=== PATIENT | female | born 1960 | race Caucasian/White ===

== ENCOUNTER 2017-12-05 21:04 | Emergency (ER) | payer BC, OTHER ==
[2017-12-05 21:23] VITALS: BP 137/65
[2017-12-05 22:20] LABS: HEMATOCRIT 45.6 % (36.0-47.0); HEMOGLOBIN 15.8 g/dL (12.0-15.5); MEAN CORPUSCULAR HEMOGLOBIN 28.6 pg (27.0-33.4); MEAN CORPUSCULAR HGB CONC 34.6 g/dL (32.0-36.0); MEAN CORPUSCULAR VOLUME 83 fl (80-97); PLATELET COUNT 340 10^3/uL (150-450); RED BLOOD COUNT 5.52 10^6/uL (3.72-5.28); RED CELL DISTRIBUTION WIDTH 13.5 % (11.5-14.0)
[2017-12-05 22:25] LABS: ALANINE AMINOTRANSFERASE 35 U/L (9-52); ALBUMIN 4.7 g/dL (3.5-5.0); ALKALINE PHOSPHATASE 52 U/L (38-126); ANION GAP 13 (5-19); ASPARTATE AMINO TRANSFERASE 32 U/L (14-36); BILIRUBIN,DIRECT 0.2 mg/dL (0.0-0.4); BILIRUBIN,TOTAL 0.5 mg/dL (0.2-1.3); BLOOD UREA NITROGEN 18 mg/dL (7-20); CALCIUM 9.9 mg/dL (8.4-10.2); CARBON DIOXIDE 31 mmol/L (22-30); CHLORIDE 96 mmol/L (98-107); GLUCOSE 107 mg/dL (75-110); LIPASE 283.7 U/L (23-300); POTASSIUM 3.4 mmol/L (3.6-5.0); SODIUM 140.2 mmol/L (137-145); TOTAL PROTEIN 7.9 g/dL (6.3-8.2)
[2017-12-05 22:41] LABS: ABSOLUTE LYMPHOCYTES# (MANUAL) 4.4 10^3/uL (0.5-4.7); ABSOLUTE MONOCYTES # (MANUAL) 1.5 10^3/uL (0.1-1.4); ABSOLUTE NEUTROPHILS# (MANUAL) 15.1 10^3/uL (1.7-8.2); BASOPHILS % (MANUAL) 0 % (0-2); EOSINOPHILS % (MANUAL) 0 % (0-6); LYMPHOCYTES % (MANUAL) 16 % (13-45); MONOCYTES % (MANUAL) 7 % (3-13); SEGMENTED NEUTROPHILS % (MAN) 72 % (42-78); TOTAL CELLS COUNTED 100
[2017-12-05 22:45] LABS: TOXIC GRANULATION 1+; TOXIC VACUOLATION PRESENT
[2017-12-05 22:46] LABS: OVALOCYTES 1+; PLATELET COMMENT ADEQUATE; POIKILOCYTOSIS 1+; TEAR DROP CELLS 1+
[2017-12-05] MEDS ORDERED: FAMOTIDINE INJ/PF 20 MG/2 ML SDV IV ONE (23:46)
[2017-12-05] MEDS ORDERED: NORMAL SALINE 1000 ML 1,000 ML IV ONE (23:46)
--- NOTE | 2017-12-05 23:49 | ER Document Report ---
ED General - General Chief Complaint: Abdominal Pain Stated Complaint: ABDOMINAL PAIN Time Seen by Provider: 12/05/17 23:17 Mode of Arrival: Ambulatory Information source: Patient Notes: 57-year-old female with hypertension presents with complaint of generalized abdominal pain that started 5 hours prior to arrival. Patient states that at 3 PM she ate [employer] and immediately felt abdominal discomfort, nausea. She states that she went home and prepare dinner when she started to experience generalized abdominal pain that she describes as cramping. She denies any vomiting, diarrhea, patient states that she has had prior similar symptoms and was told by her physician that she had diverticulitis although she has never had a colonoscopy or CAT scan performed. TRAVEL OUTSIDE OF THE [place] IN LAST 30 DAYS: No - HPI Onset: Just prior to arrival Onset/Duration: Gradual, Persistent Quality of pain: Cramping Severity: Mild Associated symptoms: Nausea. denies: Chest pain, Vomiting Exacerbated by: Denies Relieved by: Denies Similar symptoms previously: Yes - Related Data Allergies/Adverse Reactions: No Known Allergies Allergy (Unverified 12/05/17 21:09) Past Medical History - General Information source: Patient - Social History Smoking Status: Current Every Day Smoker Cigarette use (# per day): Yes - 10 Smoking Education Provided: Yes - Smoking cessation counseling was provided for 4 minutes at the bedside Frequency of alcohol use: None Drug Abuse: None Lives with: Family Family History: Reviewed & Not Pertinent Patient has suicidal ideation: No Patient has homicidal ideation: No - Past Medical History Cardiac Medical History: Reports: Hx Hypertension Review of Systems - Review of Systems Constitutional: denies: Fever, Weakness, Recent illness EENT: denies: Blurred vision, Difficulty swallowing Cardiovascular: denies: Chest pain, Dizziness Respiratory: denies: Short of breath Gastrointestinal: Abdominal pain, Nausea - Resolved, Constipation. denies: Poor appetite, Black stools Genitourinary: denies: Dysuria, Flank pain Female Genitourinary: No symptoms reported Musculoskeletal: No symptoms reported. denies: Back pain, Muscle stiffness Skin: No symptoms reported. denies: Rash Hematologic/Lymphatic: No symptoms reported. denies: Easy bleeding Neurological/Psychological: denies: Headaches -: Yes All other systems reviewed and negative Physical Exam - Vital signs Vitals: Temp Pulse Resp BP Pulse Ox 98.3 F 72 16 137/65 H 99 12/05/17 21:22 12/05/17 21:22 12/05/17 21:22 12/05/17 21:22 12/05/17 21:22 - Notes Notes: PHYSICAL EXAMINATION: GENERAL: Well-appearing, well-nourished and in no acute distress. HEAD: Atraumatic, normocephalic. EYES: Pupils equal round and reactive to light, extraocular movements intact, conjunctiva are normal. ENT: Nares patent, oropharynx clear without exudates. Moist mucous membranes. NECK: Normal range of motion, supple without lymphadenopathy LUNGS: Breath sounds clear to auscultation bilaterally and equal. No wheezes rales or rhonchi. HEART: Regular rate and rhythm without murmurs ABDOMEN: Soft, nontender, nondistended abdomen. No guarding, no rebound. No masses appreciated. Female : deferred Musculoskeletal: Normal range of motion, no pitting or edema. No cyanosis. NEUROLOGICAL: Cranial nerves grossly intact. Normal speech, normal gait. Normal sensory, motor exams PSYCH: Normal mood, normal affect. SKIN: Warm, Dry, normal turgor, no rashes or lesions noted. Course - Re-evaluation Re-evalutation: Laboratory 12/05/17 12/05/17 12/06/17 21:56 21:56 00:50 WBC 21.0 H RBC 5.52 H Hgb 15.8 H Hct 45.6 MCV 83 MCH 28.6 MCHC 34.6 RDW 13.5 Plt Count 340 Total Counted 100 Seg Neutrophils % Not Reportable Seg Neuts % (Manual) 72 Lymphocytes % Not Reportable Lymphocytes % (Manual) 16 Atypical Lymphs % 5 Monocytes % Not Reportable Monocytes % (Manual) 7 Eosinophils % Not Reportable Eosinophils % (Manual) 0 Basophils % Not Reportable Basophils % (Manual) 0 Absolute Neutrophils Not Reportable Abs Neuts (Manual) 15.1 H Absolute Lymphocytes Not Reportable Abs Lymphs (Manual) 4.4 Absolute Monocytes Not Reportable Abs Monocytes (Manual) 1.5 H Absolute Eosinophils Not Reportable Absolute Eos (Manual) 0.0 Absolute Basophils Not Reportable Abs Basophils (Manual) 0.0 Toxic Granulation 1+ Toxic Vacuolation PRESENT Platelet Comment ADEQUATE Poikilocytosis 1+ Tear Drop Cells 1+ Ovalocytes 1+ Sodium 140.2 Potassium 3.4 L Chloride 96 L Carbon Dioxide 31 H Anion Gap 13 BUN 18 Creatinine 0.84 Est GFR ( Amer) > 60 Est GFR (Non-Af Amer) > 60 Glucose 107 Calcium 9.9 Total Bilirubin 0.5 Direct Bilirubin 0.2 Neonat Total Bilirubin Not Reportable Neonat Direct Bilirubin Not Reportable Neonat Indirect Bili Not Reportable AST 32 ALT 35 Alkaline Phosphatase 52 Total Protein 7.9 Albumin 4.7 Lipase 283.7 Urine Color STRAW Urine Appearance CLEAR Urine pH 7.0 Ur Specific [place] 1.012 Urine Protein NEGATIVE Urine Glucose (UA) NEGATIVE Urine Ketones NEGATIVE Urine Blood NEGATIVE Urine Nitrite NEGATIVE Urine Bilirubin NEGATIVE Urine Urobilinogen NEGATIVE Ur Leukocyte Esterase NEGATIVE Urine WBC (Auto) 5 Urine RBC (Auto) 10 Urine Bacteria (Auto) TRACE Squamous Epi Cells Auto 4 Urine Mucus (Auto) RARE Urine Ascorbic Acid NEGATIVE Abdomen/Pelvis CT 12/06/17 00:00 IMPRESSION: Mild thickening of the small bowel, which is nonspecific and may be due to an enteritis. TECHNICAL DOCUMENTATION: Quality ID # 436: Final reports with documentation of one or more dose reduction techniques (e.g., Automated exposure control, adjustment of the mA and/or kV according to patient size, use of iterative reconstruction technique) 2010 [employer]- All Rights Reserved 12/06/17 02:52 57-year-old female presents with abdominal discomfort, nausea that started just prior to arrival after eating [employer]. Patient's abdominal pain is generalized, described as cramping. She has had associated nausea without vomiting. Upon arrival vitals were reviewed and patient is afebrile, normotensive and not hypoxic. She does not appear toxic or dehydrated. She is in no acute distress. Patient has a benign abdominal exam. CT of the abdomen and pelvis were obtained and showed mild thickening of the small bowel which could represent enteritis. Because of the patient's significant leukocytosis we will start her on Cipro and Flagyl. Patient does have an upcoming appointment with her primary care physician tomorrow. I have provided a copy of the patient's CAT scan report. Patient is tolerating fluids without difficulty. Patient was evaluated and treated as appropriate for the patient's presenting symptoms and complaint, with consideration of any critical or life threatening conditions that may be associated with their obtained history and exam as noted above. All results were discussed with patient. Patient provided the opportunity to ask questions, and express concerns. Patient was educated on treatments based on their presumed diagnosis as noted above. At this time we will discharge the patient with return precautions and follow-up recommendations. Verbal discharge instructions given a the bedside. Medication warnings reviewed. Patient is in agreement with this plan and has verbalized understanding of return precautions. After careful consideration I feel that that patient can be safely discharged from the emergency department, they were advised to followup with a primary care physician in 2-3 days. Dictation on this chart was performed using voice recognition software and may result in unintended grammatical, spelling, syntax or errors. 12/06/17 02:52 - Vital Signs Vital signs: Temp Pulse Resp BP Pulse Ox 98.3 F 72 16 137/65 H 99 12/05/17 21:22 12/05/17 21:22 12/05/17 21:22 12/05/17 21:22 12/05/17 21:22 - Laboratory Result Diagrams: 12/05/17 21:56 12/05/17 21:56 Laboratory results interpreted by me: 12/05/17 12/05/17 21:56 21:56 WBC 21.0 H RBC 5.52 H Hgb 15.8 H Abs Neuts (Manual) 15.1 H Abs Monocytes (Manual) 1.5 H Potassium 3.4 L Chloride 96 L Carbon Dioxide 31 H - Diagnostic Test Radiology reviewed: Image reviewed, Reports reviewed Discharge - Discharge Clinical Impression: Abdominal pain, generalized, Enteritis, Elevated blood pressure reading Constipation Qualifiers: Constipation type: other constipation type Qualified Code(s): K59.09 - Other constipation Leukocytosis Qualifiers: Leukocytosis type: unspecified Qualified Code(s): D72.829 - Elevated white blood cell count, unspecified Condition: Good Disposition: HOME, SELF-CARE Instructions: Abdominal Pain ([facility]), Constipation ([facility]), Leukocytosis ([facility]), Observation for Appendicitis ([facility]), Bulk Laxatives Additional Instructions: Follow up with your [id number] hours for further care or return to the ED IMMEDIATELY if symptoms worsen or you have any concerns. If you cannot afford to follow up with your primary care physician a list of low cost clinics have been provided at the end of your discharge papers as well. Most prescribed medications have multiple side effects. The safest thing to do is when filling your prescription speak to your pharmacist regarding possible interactions with your normal home medications and over the counter medications such as Ibuprofen, Tylenol, Benadryl. If you experience any symptoms that cause you discomfort or concern you should discontinue the medication immediately and return to the emergency room or call your primary care physician. Prescriptions: Ciprofloxacin HCl [Cipro 500 mg Tablet] 500 mg PO BID #20 tablet Dicyclomine HCl [Bentyl 20 mg Tablet] 20 mg PO Q8H PRN #12 tablet PRN Reason: Abdominal Cramping Metronidazole [Flagyl 500 mg Tablet] 500 mg PO BID #14 tablet Ondansetron [Zofran Odt 4 mg Tablet] 1 tab PO Q4H PRN #15 tab.rapdis PRN Reason: For Nausea/Vomiting Polyethylene Glycol 3350 [Miralax Powder 17 gm/Packet] 1 packet PO DAILY #14 pkg Forms: Elevated Blood Pressure Referrals: AYALA CARRINGTON MD [Primary Care Provider] - Follow up tomorrow
[2017-12-06 01:24] LABS: APPEARANCE,URINE CLEAR; BILIRUBIN,URINE NEGATIVE (NEGATIVE); COLOR,URINE STRAW; GLUCOSE, URINE NEGATIVE (NEGATIVE); KETONES,URINE NEGATIVE (NEGATIVE); LEUKOCYTE ESTERASE,URINE NEGATIVE (NEGATIVE); NITRITE,URINE NEGATIVE (NEGATIVE); PROTEIN,URINE NEGATIVE (NEGATIVE); UROBILINOGEN,URINE NEGATIVE mg/dL (<2.0)
[2017-12-06 01:26] LABS: URINE SPECIFIC GRAVITY 1.012
--- NOTE | 2017-12-06 02:29 | RADIOLOGY REPORT (SQ) ---
EXAM DESCRIPTION: CT ABDOMEN PELVIS WITH IV CONTRAST COMPLETED DATE/TME: 12/06/2017 00:00 CLINICAL HISTORY: 57 years, Female, lower abd pain COMPARISON: None. TECHNIQUE: Axial CT images of the abdomen and pelvis were obtained after the administration of IV contrast. Sagittal and coronal reformats were performed. DLP 492 Images stored on PACS. All CT scanners at this facility use dose modulation, iterative reconstruction, and/or weight based dosing when appropriate to reduce radiation dose to as low as reasonably achievable (ALARA). [facility]: Dose Right [facility]: CareDose [facility]: Dose Right [facility]: Teradose 4D [facility]: [employer] LIMITATIONS: None. FINDINGS: Lung bases are clear. The liver, gallbladder, pancreas, spleen, and adrenal glands are unremarkable. Bilateral renal cysts are noted. There is no evidence of hydronephrosis or hydroureter. There is no intraperitoneal free air or fluid. There is no lymphadenopathy. There are mild atherosclerotic calcific effusions of the abdominal aorta without evidence of an aneurysm. There is a small hiatal hernia. There is mild thickening of the fluid-filled small bowel. The appendix is not uniquely identified, however there are no inflammatory changes within the right lower quadrant. The colon contains a moderate amount of stool. The uterus, adnexa, and urinary bladder are unremarkable. There are no lytic or blastic bone lesions IMPRESSION: Mild thickening of the small bowel, which is nonspecific and may be due to an enteritis. TECHNICAL DOCUMENTATION: Quality ID # 436: Final reports with documentation of one or more dose reduction techniques (e.g., Automated exposure control, adjustment of the mA and/or kV according to patient size, use of iterative reconstruction technique) 2010 [employer]- All Rights Reserved
[2017-12-06] MEDS ORDERED: KETOROLAC TROMETHAMINE INJ/PF 30 MG/1 ML SDV IV ONE (02:36)
[2017-12-06] MEDS ORDERED: METRONIDAZOLE 500 MG TABLET PO ONE (02:39)
[2017-12-06] MEDS ORDERED: MORPHINE SULFATE 10 MG/ML INJ IV ONE (02:39)
[2017-12-06] MEDS ORDERED: ONDANSETRON HCL INJ/PF 4 MG/2 ML SDV IV ONE (02:39)
[2017-12-06] MEDS ORDERED: CIPROFLOXACIN 400 MG/D5W RTU 400 MG/200 ML RTUPB IV SCH ×2 (03:00→18:00)
[2017-12-06] MEDS ORDERED: CIPROFLOXACIN 400 MG/D5W RTU 400 MG/200 ML RTUPB IV ONE (03:00)
== END 2017-12-06 04:46 | disposition home or self-care (01) ==
LOC: ER 21:04
DX: K52.9 Noninfective gastroenteritis and colitis, unspecified (principal); K59.00 Constipation, unspecified; D72.829 Elevated white blood cell count, unspecified; R10.84 Generalized abdominal pain; R11.0 Nausea; I10 Essential (primary) hypertension; F17.210 Nicotine dependence, cigarettes, uncomplicated; Z71.6 Tobacco abuse counseling
CPT/HCPCS: 99284; 96361; 96375; 96365; 36415; 87040; 83690; 85025; 80053; 81001; 74177; J1885; J2270; J2405; J7030; J0744; S0028

== ENCOUNTER 2018-04-06 05:52 | Day surgery (SDC) | payer SELFPAY ==
[2018-04-04 11:29] LABS: HEMATOCRIT 43.8 % (36.0-47.0); HEMOGLOBIN 15.3 g/dL (12.0-15.5); MEAN CORPUSCULAR HEMOGLOBIN 28.6 pg (27.0-33.4); MEAN CORPUSCULAR HGB CONC 34.9 g/dL (32.0-36.0); MEAN CORPUSCULAR VOLUME 82 fl (80-97); PLATELET COUNT 383 10^3/uL (150-450); RED BLOOD COUNT 5.36 10^6/uL (3.72-5.28); RED CELL DISTRIBUTION WIDTH 13.2 % (11.5-14.0); WHITE BLOOD COUNT 12.7 10^3/uL (4.0-10.5)
[2018-04-04 11:35] LABS: APPEARANCE,URINE SLIGHTLY-CLOUDY; BILIRUBIN,URINE NEGATIVE (NEGATIVE); COLOR,URINE YELLOW; GLUCOSE, URINE NEGATIVE (NEGATIVE); KETONES,URINE NEGATIVE (NEGATIVE); LEUKOCYTE ESTERASE,URINE NEGATIVE (NEGATIVE); NITRITE,URINE NEGATIVE (NEGATIVE); PROTEIN,URINE NEGATIVE (NEGATIVE); URINE SPECIFIC GRAVITY 1.006; UROBILINOGEN,URINE NEGATIVE mg/dL (<2.0)
[2018-04-04 11:49] LABS: ANION GAP 12 (5-19); BLOOD UREA NITROGEN 15 mg/dL (7-20); CALCIUM 9.5 mg/dL (8.4-10.2); CARBON DIOXIDE 31 mmol/L (22-30); CHLORIDE 98 mmol/L (98-107); GLUCOSE 91 mg/dL (75-110); POTASSIUM 3.6 mmol/L (3.6-5.0); SODIUM 140.6 mmol/L (137-145)
--- NOTE | 2018-04-04 12:07 | RADIOLOGY REPORT (SQ) ---
EXAM DESCRIPTION: CHEST PA/LATERAL COMPLETED DATE/TIME: 04/04/2018 11:22 am REASON FOR STUDY: PRE OP COMPARISON: None. EXAM PARAMETERS: NUMBER OF VIEWS: two views TECHNIQUE: Digital Frontal and Lateral radiographic views of the chest acquired. RADIATION DOSE: NA LIMITATIONS: none FINDINGS: LUNGS AND PLEURA: No opacities, masses or pneumothorax. No pleural effusion. MEDIASTINUM AND HILAR STRUCTURES: No masses or contour abnormalities. HEART AND VASCULAR STRUCTURES: Heart normal size. No evidence for failure. BONES: No acute findings. HARDWARE: None in the chest. OTHER: No other significant finding. IMPRESSION: NO SIGNIFICANT RADIOGRAPHIC FINDING IN THE CHEST. TECHNICAL DOCUMENTATION: JOB ID: [id number] [employer]- All Rights Reserved Reading location - IP/workstation name: [email or web address]
--- NOTE | 2018-04-04 22:50 | EKG REPORT ---
SEVERITY:- NORMAL ECG - SINUS RHYTHM : Confirmed by: Jose Gomez 04-Apr-2018 22:49:45
[~2018-04-06 05:52] MED LIST: CEFAZOLIN 1 GM/D5W RTU 1 GM/50 ML RTUPB IV ONE; LACTATED RINGERS 1000 ML IV PRN; LIDOCAINE 0.5% INJ-PF (5 MG/ML) 50 ML SDV SUBCUT PRN
[2018-04-06] MEDS ORDERED: ALBUTEROL SULFATE 0.083% NEB 2.5 MG/3 ML AMPUL NEB ONE (07:22)
[2018-04-06] MEDS ORDERED: LIDOCAINE 1% INJ-PF (10 MG/ML) 30 ML SDV ONE (08:04)
[2018-04-06] MEDS ORDERED: FENTANYL CITRATE INJ/PF 100 MCG/2 ML AMPUL ONE (08:09)
[2018-04-06] MEDS ORDERED: MIDAZOLAM 2 MG/2 ML INJ ONE (08:09)
[2018-04-06] MEDS ORDERED: PROPOFOL INJ 200 MG/20 ML VIAL IV ONE (08:09)
[2018-04-06] MEDS ORDERED: FENTANYL CITRATE INJ/PF 100 MCG/2 ML AMPUL IV PRN ×3 (08:29)
[2018-04-06] MEDS ORDERED: ONDANSETRON HCL INJ/PF 4 MG/2 ML SDV IV PRN (08:29)
[2018-04-06] MEDS ORDERED: KETOROLAC TROMETHAMINE INJ/PF 30 MG/1 ML SDV ONE (09:27)
[2018-04-06] MEDS ORDERED: OXYCODONE-ACETAMINOPHEN 5-325 MG TABLET PO PRN (09:30)
[2018-04-06] MEDS ORDERED: PROMETHAZINE HCL INJ 25 MG/1 ML VIAL IM PRN (09:30)
[2018-04-06] MEDS ORDERED: MORPHINE INJ 4 MG DOSE (EDIT ROUTE) INJ PRN (09:30)
[2018-04-06 10:56] VITALS: BP 137/80
[2018-04-06] MEDS ORDERED: IBUPROFEN 800 MG TABLET PO SCH (14:00)
--- NOTE | 2018-04-08 08:55 | OPERATIVE REPORT E ---
Operative Report NAME: PEPE ELIZABETH : 1960 AGE: 57Y DATE OF SURGERY: ROOM: PREOPERATIVE DIAGNOSIS: Postmenopausal bleeding. POSTOPERATIVE DIAGNOSIS: Endometrial polyp. OPERATION: Hysteroscopic polypectomy. COMPLICATIONS: None. SURGEON: AYALA CARRINGTON M.D. ANESTHESIA: LMAC, paracervical block. FINDINGS: A large endometrial polyp removed in toto. No adnexal masses were appreciated. Bladder was left undrained. Uterus was normal size, shape, . Anterior stenotic cervix required lacrimal duct dilators to enter the uterus. INDICATIONS FOR PROCEDURE: The patient failed outpatient biopsy. Elected to proceed to hysteroscopy due to a large endometrial mass noted. The usual risks of bleeding, infection, anesthesia, and damage to organs and tissues have been discussed. The patient understood. PROCEDURE: The patient was taken to the operating room and placed in a modified lithotomy position after adequate anesthesia was obtained, prepped and draped for a hysteroscopy. Paracervical block placed. Single-tooth tenaculum placed. A lacrimal duct dilator was used to locate the cervical os and it was dilated to admit an operative hysteroscope. Hysteroscope inserted. A large polyp was encountered. The MyoSure was deployed. This was removed in toto with good hemostasis noted at the completion of procedure. Uterine integrity was confirmed at completion of the procedure. At the completion of procedure all sponge, needle counts were correct. The patient was taken to recovery in stable condition. DICTATING PHYSICIAN: AYALA CARRINGTON M.D. [id number] PHY#: [id number] ID: [id number] JOB#: [id number] ACCT: [id number] cc:AYALA CARRINGTON M.D. >
== END 2018-04-06 10:47 | disposition home or self-care (01) ==
LOC: OROUT 05:52
PROVIDERS: ATTEND Specialist
DX: N84.0 Polyp of corpus uteri (principal); N95.0 Postmenopausal bleeding; I10 Essential (primary) hypertension; Z79.899 Other long term (current) drug therapy
CPT/HCPCS: 93005; 86900; 86901; 36415; 86850; 85027; 80048; 81001; 88305 ×2; 71046; 93010; 94640; 58558; J2250; J0690; J3010; J3490; J1885; J2704; 952

== ENCOUNTER → 2018-07-24 | Outpatient (CLI) | payer OTHER ==
--- NOTE | 2018-07-24 15:39 | RADIOLOGY REPORT (SQ) ---
EXAM DESCRIPTION: CT CHEST WITH COMPLETED DATE/TIME: 07/24/2018 2:43 pm REASON FOR STUDY: CANCER STAGING-ADENOCARCINOMA Z01.89 ENCOUNTER FOR OTHER SPECIFIED SPECIAL EXAMIN ATIONS C80.0 DISSEMINATED MALIGNANT NEOPLASM, UNSPECIFIED COMPARISON: Two-view chest 04/04/2018 CT abdomen pelvis 12/06/2017 TECHNIQUE: CT scan of the chest performed using helical scanning technique with dynamic intravenous contrast injection. Images reviewed with lung, soft tissue and bone windows. Reconstructed coronal and sagittal MPR and MIP images reviewed. All images stored on PACS. All CT scanners at this facility use dose modulation, iterative reconstruction, and/or weight based d osing when appropriate to reduce radiation dose to as low as reasonably achievable (ALARA). [facility]: Dose Right [facility]: CareDose [facility]: Dose Right [facility]: Teradose 4D [facility]: [employer] CONTRAST TYPE AND DOSE: contrast/concentration: Isovue 350.00 mg/ml; Total Contrast Delivered: 80.0 ml; Total Saline Delivered: 55.0 ml RENAL FUNCTION: Creatinine 0.8 RADIATION DOSE: CT Rad equipment meets quality standard of care and radiation dose reduction techniq ues were employed. CTDIvol: 3.0 mGy. DLP: 112 mGy-cm. . LIMITATIONS: None. FINDINGS: LUNGS AND PLEURA: No opacities, nodules, masses. No pneumothorax. No effusions. HILAR AND MEDIASTINAL STRUCTURES: No identified masses or abnormal nodes. Moderate size retrocardiac hiatal hernia. HEART AND VASCULAR STRUCTURES: No aneurysm or dissection. No central pulmonary emboli. No pericardi al effusion. HARDWARE: None in the chest. UPPER ABDOMEN: There is ascites in the upper abdomen. 3 cm cyst posterior right upper pole kidney. Moderate hydronephrosis versus parapelvic cysts left kidney which is incompletely included in the fie ld of view THYROID AND OTHER SOFT TISSUES: No masses. No adenopathy. BONES: No significant finding. OTHER: No other significant finding. IMPRESSION: No CT evidence of metastatic disease to the chest. Ascites in the upper abdomen with possible left hydronephrosis. TECHNICAL DOCUMENTATION: JOB ID: [id number] Quality ID # [id number]: Final reports with documentation of one or more dose reduction techniques (e.g., Au tomated exposure control, adjustment of the mA and/or kV according to patient size, use of iterative reconstruction technique) 2010 [employer]- All Rights Reserved Reading location - IP/workstation name: [email or web address]
== END ==
LOC: RAD 12:33
PROVIDERS: ATTEND Surgery
DX: C80.0 Disseminated malignant neoplasm, unspecified (principal); R18.8 Other ascites
CPT/HCPCS: 71260; 82565

== ENCOUNTER 2018-10-28 05:58 | Emergency (ER) | payer OTHER ==
[2018-10-28] MEDS ORDERED: ASPIRIN 81 MG TABLET, CHEWABLE PO ONE (06:22)
[2018-10-28 07:08] LABS: ABSOLUTE EOSINOPHILS # (AUTO) 0.1 10^3/uL (0.0-0.6); ABSOLUTE LYMPHOCYTES (AUTO) 1.5 10^3/uL (0.5-4.7); ABSOLUTE MONOCYTES (AUTO) 0.6 10^3/uL (0.1-1.4); ABSOLUTE NEUT (AUTO) 1.5 10^3/uL (1.7-8.2); BASOPHILS % (AUTO) 0.3 % (0-2); EOSINOPHILS % (AUTO) 2.8 % (0-6); HEMATOCRIT 36.3 % (36.0-47.0); HEMOGLOBIN 12.5 g/dL (12.0-15.5); LYMPHOCYTES % (AUTO) 41.1 % (13-45); MEAN CORPUSCULAR HEMOGLOBIN 27.8 pg (27.0-33.4); MEAN CORPUSCULAR HGB CONC 34.5 g/dL (32.0-36.0); MEAN CORPUSCULAR VOLUME 81 fl (80-97); MONOCYTES % (AUTO) 15.3 % (3-13); PLATELET COUNT 167 10^3/uL (150-450); RED BLOOD COUNT 4.51 10^6/uL (3.72-5.28); RED CELL DISTRIBUTION WIDTH 22.5 % (11.5-14.0); SEGMENTED NEUTROPHILS % (AUTO) 40.5 % (42-78); TOTAL CELLS COUNTED % (AUTO) 100 %; WHITE BLOOD COUNT 3.7 10^3/uL (4.0-10.5)
[2018-10-28 07:16] LABS: ALBUMIN 4.2 g/dL (3.5-5.0); ALKALINE PHOSPHATASE 68 U/L (38-126); ANION GAP 9 (5-19); ASPARTATE AMINO TRANSFERASE 24 U/L (14-36); BILIRUBIN,DIRECT 0.3 mg/dL (0.0-0.4); BILIRUBIN,TOTAL 0.4 mg/dL (0.2-1.3); BLOOD UREA NITROGEN 15 mg/dL (7-20); CALCIUM 9.9 mg/dL (8.4-10.2); CARBON DIOXIDE 30 mmol/L (22-30); CHLORIDE 100 mmol/L (98-107); CREATINE KINASE 30 U/L (30-135); GLUCOSE 130 mg/dL (75-110); POTASSIUM 3.1 mmol/L (3.6-5.0)
--- NOTE | 2018-10-28 07:18 | RADIOLOGY REPORT (SQ) ---
Chest 2 view on 10/28/2018 at 6:54 AM CLINICAL INDICATION: Chest pain COMPARISON: 04/04/2018 FINDINGS: Left subclavian Port-A-Cath tip is in the SVC. Vascular calcification is noted in the aorta. The lungs are clear. Cardiac, hilar and mediastinal contours are within normal limits. The lunate vascularity is within normal limits. IMPRESSION: No acute disease.
[2018-10-28 07:30] LABS: CREATINE KINASE MB < 0.22 ng/mL (<4.55); TROPONIN I < 0.012 ng/mL
--- NOTE | 2018-10-28 07:40 | ER Document Report ---
Entered by TRACEE CATALAN SCRIBE 10/28/18 0700 Acting as scribe for:UDAY FRANCIS MD ED General - General Chief Complaint: Chest Pain Stated Complaint: CHEST PAIN Time Seen by Provider: 10/28/18 06:33 Primary Care Provider: GARLAND STEINER MD [Primary Care Provider] - Follow up as needed Information source: Patient Notes: 58 year old female with a past medical history significant for what sounds like abdominal carcinomatosis that presents to the emergency department today with complaints of "sternal" chest pain. Patient describes her malignancy as "little white dots all around my abdominal cavity". Patient states that she has noticed this pain when she lays down at night for the last month or more. Patient states it lasts for about 60 seconds and then goes away. Patient states it never wakes her up from sleep. Patient states she seems to be getting more and more of these episodes recently. Patient's last chemotherapy treatment was 2 weeks ago. TRAVEL OUTSIDE OF THE [place] IN LAST 30 DAYS: No - Related Data Allergies/Adverse Reactions: No Known Allergies Allergy (Unverified 04/04/18 10:14) Past Medical History - General Information source: Patient - Social History Smoking Status: Current Every Day Smoker Cigarette use (# per day): Yes - 1 ppd Frequency of alcohol use: None Drug Abuse: None Lives with: Spouse/Significant other Family History: Reviewed & Not Pertinent Patient has suicidal ideation: No Patient has homicidal ideation: No - Past Medical History Cardiac Medical History: Reports: Hx Hypertension Malignancy Medical History: Reports: Other - describes what sounds like Carcinomatosis Past Surgical History: Reports: Hx Tubal Ligation, Hx Vascular Surgery - port placement - Immunizations Hx Diphtheria, Pertussis, Tetanus Vaccination: - UNSURE Review of Systems - Review of Systems Constitutional: No symptoms reported EENT: No symptoms reported Cardiovascular: See HPI, Chest pain Respiratory: No symptoms reported Gastrointestinal: No symptoms reported Genitourinary: No symptoms reported Female Genitourinary: No symptoms reported Musculoskeletal: No symptoms reported Skin: No symptoms reported Hematologic/Lymphatic: No symptoms reported Neurological/Psychological: No symptoms reported -: Yes All other systems reviewed and negative Physical Exam - Vital signs Vitals: Temp Pulse Resp BP Pulse Ox 98 F 80 16 164/100 H 98 10/28/18 06:05 10/28/18 06:05 10/28/18 06:05 10/28/18 06:05 10/28/18 06:05 - Notes Notes: Physical Exam: General: Alert, appears much older than stated age, very thin appearing. HEENT: Normocephalic. Atraumatic. PERRL. Extraocular movements intact. Oropharynx clear. Neck: Supple. Non-tender. Respiratory: No respiratory distress. Clear and equal breath sounds bilaterally. Cardiovascular: 1/6 systolic murmur. Regular rate and rhythm. Abdominal: Normal Inspection. Non-tender. No distension. Normal Bowel Sounds. Back: No gross abnormalities. Extremities: Moves all four extremities. Upper extremities: Normal inspection. Normal ROM. Lower extremities: Normal inspection. No edema. Normal ROM. Neurological: Normal cognition. AAOx4. Normal speech. Psychological: Normal affect. Normal Mood. Skin: Warm. Dry. Normal color. Course - Vital Signs Vital signs: Temp Pulse Resp BP Pulse Ox 98 F 80 17 149/83 H 98 10/28/18 06:05 10/28/18 06:05 10/28/18 07:07 10/28/18 07:07 10/28/18 07:07 - Laboratory Result Diagrams: 10/28/18 06:44 10/28/18 06:44 Laboratory results interpreted by me: 10/28/18 10/28/18 06:44 06:44 WBC 3.7 L RDW 22.5 H [place] % (Auto) 15.3 H Absolute Neuts (auto) 1.5 L Seg Neutrophils % 40.5 L Potassium 3.1 L Glucose 130 H - Diagnostic Test Radiology reviewed: Image reviewed, Reports reviewed - Chest x-ray does not show acute disease. There is a Port-A-Cath noted. - EKG Interpretation by Hi EKG shows normal: Sinus rhythm, [place], Intervals, QRS Complexes, ST-T Waves Rate: Normal - 69 Rhythm: NSR Discharge - Discharge Clinical Impression: Anxiety Chest pain Qualifiers: Chest pain type: unspecified Qualified Code(s): R07.9 - Chest pain, unspecified Condition: Stable Disposition: HOME, SELF-CARE Additional Instructions: The chest pain you describe seems to be only noticed when you are laying down and it is quiet and there are no distractions. It is very likely the discomfort is related to anxiety about your underlying cancer and chemotherapy treatments. Your lab work, EKG, and chest x-ray are all unremarkable. Follow-up with Dr. Sarah this week if further concerns about your chest pains. RETURN TO THE EMERGENCY ROOM IF ANY NEW OR WORSENING SYMPTOMS. Referrals: GARLAND STEINER MD [Primary Care Provider] - Follow up as needed RC SARAH MD [ACTIVE STAFF] - Follow up in 3-5 days Scribe Attestation: 10/28/18 07:49 I personally performed the services described in the documentation, reviewed and edited the documentation which was dictated to the scribe in my presence, and it accurately records my words and actions. I personally performed the services described in the documentation, reviewed and edited the documentation which was dictated to the scribe in my presence, and it accurately records my words and actions.
[2018-10-28] MEDS ORDERED: NORMAL SALINE 1000 ML 1,000 ML IV ONE (07:44)
[2018-10-28 08:49] VITALS: BP 155/83
--- NOTE | 2018-10-28 09:38 | EKG REPORT ---
SEVERITY:- NORMAL ECG - SINUS RHYTHM : Confirmed by: Humberto Olvera MD 28-Oct-2018 09:38:25
== END 2018-10-28 09:03 | disposition home or self-care (01) ==
LOC: ER 05:58
DX: R07.9 Chest pain, unspecified (principal); F41.9 Anxiety disorder, unspecified; R01.1 Cardiac murmur, unspecified; I10 Essential (primary) hypertension; F17.210 Nicotine dependence, cigarettes, uncomplicated; C80.1 Malignant (primary) neoplasm, unspecified
CPT/HCPCS: 93005; 36591; 99285; 36415; 82553; 82550; 85025; 80053; 84484; 71046; 93010; J1642

== ENCOUNTER 2019-07-03 07:18 | Day surgery (SDC) | payer OTHER ==
[~2019-07-03 07:18] MED LIST changes: -CEFAZOLIN 1 GM/D5W RTU 1 GM/50 ML RTUPB IV ONE; -LACTATED RINGERS 1000 ML IV PRN; -LIDOCAINE 0.5% INJ-PF (5 MG/ML) 50 ML SDV SUBCUT PRN; +PROPOFOL INJ 200 MG/20 ML VIAL IV ONE
[2019-07-03] MEDS ORDERED: MEPERIDINE HCL/PF INJ 25 MG/1 ML DISP.SYRIN IV PRN (08:45)
[2019-07-03] MEDS ORDERED: OXYCODONE-ACETAMINOPHEN 5-325 MG TABLET PO PRN ×2 (08:45)
[2019-07-03] MEDS ORDERED: DIPHENHYDRAMINE HCL 50 MG/ML VIAL IV PRN (08:45)
[2019-07-03] MEDS ORDERED: FENTANYL CITRATE INJ/PF 100 MCG/2 ML AMPUL IV PRN ×3 (08:45)
[2019-07-03] MEDS ORDERED: PROMETHAZINE HCL INJ 25 MG/1 ML VIAL IV PRN ×2 (08:45)
--- NOTE | 2019-07-03 10:42 | Operative Report ---
Operative Report DATE OF SURGERY: 07/03/19 Operative Report: The risk, benefits and alternatives of the procedure including the risk of bleeding, perforation requiring surgery have been explained to the patient in detail and informed consent has been obtained. The patient is placed in a left, lateral decubital position. Timeout was called. Propofol medication is administered. Rectal examination is done which did not reveal any masses, tears or fissures. An Olympus videoscope was introduced into the patient's rectum. Scope was then carefully advanced all the way to the cecum. The cecum was identified by the usual anatomical landmarks of the ileocecal valve as well as the appendiceal office. Photodocumentation is obtained. Scope was then sequentially pulled back via the various segments of the colon including the ascending colon, hepatic flexure, transverse colon, splenic flexure, descending colon and finally into the rectosigmoid portions of the colon. Retroflexion maneuvers performed. PREOPERATIVE DIAGNOSIS: Personal history of polyp, change in bowel habits, chronic diarrhea with abdominal pain POSTOPERATIVE DIAGNOSIS: Inflammation noted at the anastomotic site status post biopsy. Random colon biopsies also obtained to rule out for colitis. Prep is somewhat limited OPERATION: Colonoscopy with biopsy SURGEON: SUSAN THAKUR ANESTHESIA: LMAC TISSUE REMOVED OR ALTERED: As noted above COMPLICATIONS: None. ESTIMATED BLOOD LOSS: None. INTRAOPERATIVE FINDINGS: As noted above. PROCEDURE: Patient tolerated the procedure well. No immediate postprocedure complications are noted. Patient is discharged in good condition. Discharge date 07/03/2019. Discharge diet: Regular. Discharge activity: Regular. 2 to 3-week follow-up to discuss findings. Patient is instructed to call the office or proceed to the emergency room should there be any further problems or questions. Wait on the pathology.
[2019-07-03 11:12] VITALS: BP 179/76
== END 2019-07-03 10:55 | disposition home or self-care (01) ==
LOC: OROUT 07:18
PROVIDERS: ATTEND Internal Medicine Gastroenterology
DX: K52.9 Noninfective gastroenteritis and colitis, unspecified (principal); K64.8 Other hemorrhoids; Z90.49 Acquired absence of other specified parts of digestive tract; E78.5 Hyperlipidemia, unspecified; I10 Essential (primary) hypertension; Z79.899 Other long term (current) drug therapy; Z79.891 Long term (current) use of opiate analgesic
CPT/HCPCS: 45380; 88305 ×2; 00811; J2704; 811

== ENCOUNTER → 2019-08-05 | Outpatient (CLI) | payer OTHER ==
--- NOTE | 2019-08-05 16:17 | RADIOLOGY REPORT (SQ) ---
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 . TECHNIQUE: CT scan of the abdomen and pelvis performed using helical scanning technique with dynamic intravenous contrast injection. No oral contrast. Images reviewed with lung, soft tissue, and bone windows. Reconstructed coronal and sagittal MPR images reviewed. Delayed images for evaluation of the urinary system also acquired. All images stored on PACS. All CT scanners at this facility use dose modulation, iterative reconstruction, and/or weight based d osing when appropriate to reduce radiation dose to as low as reasonably achievable (ALARA). [facility]: Dose Right [facility]: CareDose [facility]: Dose Right [facility]: Teradose 4D [facility]: [employer] CONTRAST TYPE AND DOSE: 40 mL Omnipaque 350- low osmolar. RENAL FUNCTION: Creatinine 0.7 milligrams/deciliter. RADIATION DOSE: CT Rad equipment meets quality standard of care and radiation dose reduction techniq ues were employed. CTDIvol: 2.4 - 2.4 mGy. DLP: 247 mGy-cm. LIMITATIONS: None. FINDINGS: LOWER CHEST: No acute findings. LIVER: The morphology of the liver is noncirrhotic. The portal veins are patent. There is no hepati c mass. SPLEEN: The spleen is surgically absent. PANCREAS: No acute abnormality of the pancreas. GALLBLADDER: The gallbladder is either contracted or surgically absent. ADRENAL GLANDS: Mild nodular enlargement of the left adrenal gland that is nonspecific and could repr esent adenomatous hyperplasia. RIGHT KIDNEY AND URETER: Cystic cortical based renal lesions that range in size from less than 10 mm to 2.6 x 2.1 cm. There is no solid mass, hydronephrosis, nephrolithiasis, hydroureter or ureterolith iasis. LEFT KIDNEY AND URETER: Parapelvic cysts and cortical based cystic renal lesions that measure less t turpin 1 cm and are therefore considered too small to characterize. There is no solid mass, hydronephro sis, nephrolithiasis, hydroureter or ureterolithiasis. AORTA AND VESSELS: No aneurysm of the abdominal aorta. RETROPERITONEUM: No retroperitoneal adenopathy, hemorrhage or mass. BOWEL AND PERITONEAL CAVITY: Status post partial colonic resection with anastomotic sutures present i n the left lower quadrant. There is a rectal tube in place. The colon is distended. There is no ev idence of obstruction, bowel wall thickening or pericolonic/ perienteric inflammation. There is no m esenteric adenopathy, free intraperitoneal fluid or mesenteric/ omental inflammation APPENDIX: Normal. PELVIS: The uterus is surgically absent. There is a thick walled gas containing fluid collection in the rectovesical pouch (image 59 of series 5) that measures 6.5 x 2.2 cm. The urinary bladder is dis tended and normal in appearance. ABDOMINAL WALL: No mass or hernia. BONES: No fracture or osseous lesion. OTHER: No other finding. IMPRESSION: 1. Thick walled gas containing fluid collection in the rectovesical pouch. Unclear if i t represents an abscess or the endovaginal canal that is distended and filled with fluid and air. 2. Status post splenectomy, hysterectomy and partial colectomy. TECHNICAL DOCUMENTATION: JOB ID: [id number] Quality ID # [id number]: Final reports with documentation of one or more dose reduction techniques (e.g., Au tomated exposure control, adjustment of the mA and/or kV according to patient size, use of iterative reconstruction technique) 2010 [employer]- All Rights Reserved Reading location - IP/workstation name: [email or web address]
== END ==
LOC: RAD 14:15
PROVIDERS: ATTEND Surgery
DX: C18.1 Malignant neoplasm of appendix (principal); R10.84 Generalized abdominal pain; R20.8 Other disturbances of skin sensation
CPT/HCPCS: 82565; 74177; J1642

== ENCOUNTER 2019-08-23 07:31 | Day surgery (SDC) | payer OTHER ==
--- NOTE | 2019-08-23 10:40 | Operative Report ---
Operative Report DATE OF SURGERY: 08/23/19 Operative Report: The risks benefits and alternatives of the procedure explained to the patient in detail and informed consent is obtained.A GIF Olympus video scope was inserted into the patient's mouth and hypopharynx, the esophagus is identified intubated and insufflated, the scope was then advanced through the esophagus stomach and duodenum ,retroflexion maneuver is done, the esophagus stomach and first and second portions of the duodenum examined PREOPERATIVE DIAGNOSIS: Weight loss epigastric pain POSTOPERATIVE DIAGNOSIS: Gastritis status post biopsy. Possible Schatzki's ring status post breakage, biopsies will be sent to rule out Asher's esophagus as well OPERATION: EGD with biopsy SURGEON: SUSAN THAKUR ANESTHESIA: LMAC TISSUE REMOVED OR ALTERED: As noted above. COMPLICATIONS: None. ESTIMATED BLOOD LOSS: None. INTRAOPERATIVE FINDINGS: As noted above. PROCEDURE: Patient tolerated the procedure well. No immediate postprocedure complications are noted. Patient is discharged in good condition. Discharge date 08/23/2019. Discharge diet: Regular. Discharge activity: Regular. 2 to 3-week follow-up to discuss findings. Patient is instructed to call the office or proceed to the emergency room should there be any further problems questions. If pathology is negative may have to consider possible mesenteric ischemia as cause of the patient's continued weight loss and abdominal pain. And may require mesenteric CT scan
[2019-08-23 14:30] VITALS: BP 120/59
== END 2019-08-23 11:15 | disposition home or self-care (01) ==
LOC: END 07:31
PROVIDERS: ATTEND Internal Medicine Gastroenterology
DX: K22.2 Esophageal obstruction (principal); K20.9 Esophagitis, unspecified; K29.50 Unspecified chronic gastritis without bleeding; R63.4 Abnormal weight loss; Z03.818 Encounter for observation for suspected exposure to other biological agents ruled out; I10 Essential (primary) hypertension
CPT/HCPCS: 43239; 87635; 88342 ×2; 88305 ×2; 00731; J2704; J1642; C9803; 731

== ENCOUNTER → 2019-11-12 | Outpatient (CLI) | payer BC, OTHER ==
--- NOTE | 2019-11-12 16:27 | RADIOLOGY REPORT (SQ) ---
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 Continued bloating and abdomi nal pain with eating. Weight loss. Currently receiving chemotherapy. Resection 12/31/2018. COMPARISON: CT abdomen and pelvis, 08/05/2019. CT abdomen and pelvis, 12/06/2017. CT chest, 9. RADIONUCLIDE AND DOSE: 11.5 mCi F18 FDG The route of agent administration: Intravenous FASTING BLOOD SUGAR: 91 mg/dl CONTRAST TYPE AND DOSE: No CT contrast given. TECHNIQUE: Blood glucose level was verified. Above dose of FDG was injected intravenously. 2-D seg mented attenuation correction images were obtained from the base of the skull to the midthighs. Nonc ontrast CT images were obtained for attenuation correction and fusion with emission images. CT image s were performed without oral or intravenous contrast and are not sensitive for parenchymal lesions. A series of overlapping emission PET images were obtained. [facility] by the radiologist. Images stored on PACS. LIMITATIONS: None. FINDINGS: HEAD AND NECK: No areas of abnormal metabolic activity in the soft tissues of the head and neck. CHEST: No areas of abnormal metabolic activity in the chest. ABDOMEN AND PELVIS: No areas of abnormal metabolic activity in the abdomen or pelvis. Expected physi ologic activity is present in the genitourinary system and bowel. Background hepatic activity SUV 2. 0. PROXIMAL LOWER EXTREMITIES: No areas of abnormal metabolic activity in the soft tissues of the lower extremities. BONES: No abnormal metabolic activity in the visualized skeleton. ADDITIONAL CT FINDINGS: There is new right pleural thickening and nodularity along the right major an d minor fissures, the largest subpleural nodule measuring 7 mm. No associated pleural effusion. No parenchymal nodules. No focal consolidation. Moderate cardiomegaly. No pericardial effusion. Calc ified coronary arteries. Right MediPort catheter with tip at the cavoatrial junction. Status post r ight hemicolectomy and splenectomy unchanged from prior. Interval resolution of the fluid in the vag inal cuff. Large amount of stool throughout the colon. No evidence of bowel obstruction. Bilateral renal cortical cysts. OTHER: No other significant findings. IMPRESSION: 1. No evidence of hypermetabolic metastases in the chest, abdomen or pelvis. 2. New pleural based nodularity in the right hemithorax is indeterminate. Finding may represent rigoberto y pleural-based metastases. There is currently no associated pleural effusion. Continued follow-up with follow-up diagnostic CT of the chest in 3 months is recommended for re-evaluation. TECHNICAL DOCUMENTATION: JOB ID: [id number] 2010 [employer]- All Rights Reserved Reading location - IP/workstation name: [email or web address]
== END ==
LOC: RAD 07:43
PROVIDERS: ATTEND Internal Medicine Hematology & Oncology
DX: C18.9 Malignant neoplasm of colon, unspecified (principal); C48.1 Malignant neoplasm of specified parts of peritoneum; R91.1 Solitary pulmonary nodule; Q61.02 Congenital multiple renal cysts
CPT/HCPCS: 78815; A9552

== ENCOUNTER → 2020-01-10 | Outpatient (CLI) | payer BC ==
--- NOTE | 2020-01-10 10:44 | RADIOLOGY REPORT (SQ) ---
EXAM DESCRIPTION: CT CHEST WITH; CT ABD/PELVIS WITH IV ORAL IMAGES COMPLETED DATE/TIME: 01/10/2020 9:33 am REASON FOR STUDY: COLON CANCER, PERITONEUM CANCER C18.9 MALIGNANT NEOPLASM OF COLON, UNSPECIFIED CONTRAST TYPE AND DOSE: contrast/concentration: Isovue 350.00 mmol/ml; Total Contrast Delivered: 41. 0 ml; Total Saline Delivered: 64.9 ml RENAL FUNCTION: 0.9 COMPARISON: None. TECHNIQUE: CT scan of the chest performed using helical scanning technique with dynamic intravenous contrast injection. Images reviewed with lung, soft tissue and bone windows. Reconstructed coronal a nd sagittal MPR images reviewed. All images stored on PACS. All CT scanners at this facility use dose modulation, iterative reconstruction, and/or weight based d osing when appropriate to reduce radiation dose to as low as reasonably achievable (ALARA). [facility]: Dose Right [facility]: CareDose [facility]: Dose Right [facility]: Teradose 4D [facility]: 36Kr RADIATION DOSE: CT Rad equipment meets quality standard of care and radiation dose reduction techniq ues were employed. CTDIvol: 4.4 - 4.5 mGy. DLP: 838 mGy-cm. . LIMITATIONS: None. FINDINGS: AXILLAE: No adenopathy. CHEST WALL: No masses. No subcutaneous air. LUNGS: No nodules or masses. No pneumothorax. No infiltrates. PLEURA: There has been a slight increase in the nodular right basilar pleural thickening. There is a focal subpleural nodule on series 2, image 50 measured at 11.3 mm. On prior PET-CT this measured 8. 6 mm. THYROID: No masses or significant asymmetry. HILAR AND MEDIASTINAL STRUCTURES: No identified masses or abnormal nodes. AORTA AND GREAT VESSELS: No aneurysm. No dissection. PULMONARY ARTERIES: No identified pulmonary emboli. Study not optimized for the pulmonary arteries. HEART: No pericardial effusion. HARDWARE AND LIFELINES: None. BONES: No significant finding. OTHER: No other significant finding. IMPRESSION: Increasing nodular pleural thickening in the right lung base as described. There is a f ocal subpleural nodule medially measured at 11.3 mm. This was approximately 8.6 mm in greatest diame ter on prior study. Differential remains neoplasm versus infectious or inflammatory process. COMPARISON: The study is limited secondary to lack of intra and retroperitoneal fat. RADIATION DOSE: CT Rad equipment meets quality standard of care and radiation dose reduction techniq ues were employed. CTDIvol: 4.4 - 4.5 mGy. DLP: 838 mGy-cm. mGy. TECHNIQUE: CT scan of the abdomen and pelvis performed with intravenous and oral contrast using rose marie miranda scanning technique with dynamic intravenous contrast injection. Images reviewed with lung, soft tissue and bone windows. Reconstructed coronal and sagittal MPR images reviewed. Delayed images for evaluation of the urinary system also acquired and evaluated. All images stored on PACS. All CT scanners at this facility use dose modulation, iterative reconstruction, and/or weight based d osing when appropriate to reduce radiation dose to as low as reasonably achievable (ALARA). [facility]: Dose Right [facility]: SureCare [facility]: Dose Right [facility]: Teradose 4D [facility]: 36Kr FINDINGS: LIVER: The liver is grossly stable in appearance. Small focal air decreased attenuation i n the inferior right lobe of liver stable in appearances measures 8.7 mm in greatest diameter. Previ ously this measured 12.4. Persistent mild perihepatic soft tissue attenuation which is unchanged and may related to prior surgery. SPLEEN: Prior splenectomy. PANCREAS: No masses. No significant calcifications. No adjacent inflammation or peripancreatic flui d collections. Pancreatic duct not dilated. GALLBLADDER: Surgically absent. ADRENAL GLANDS: No significant masses or asymmetry. RIGHT KIDNEY AND URETER: Multiple right renal cysts. No significant calcifications. No hydronephr osis or hydroureter. LEFT KIDNEY AND URETER: Multiple left renal cysts. No significant calcifications. No hydronephros is or hydroureter. AORTA AND VESSELS: No aneurysm. No dissection. Renal arteries, SMA, celiac without stenosis. RETROPERITONEUM: No retroperitoneal adenopathy, hemorrhage or masses. LARGE AND SMALL BOWEL: Mild small-bowel distention. No evidence of mechanical obstruction. No obvio us small bowel wall thickening allowing for nondistention. APPENDIX: Surgically absent. ABDOMINAL WALL: No hernia or masses. PERITONEAL CAVITY: Large fluid collection is now present in the left lateral gutter. This measured a pproximately 5.0 x 2.6 x 13.4 cm in greatest dimensions. A contains no we are. Hounsfield units vanita sure 23. PELVIS: No mass or free fluid. Normal bladder. BONES: No significant or acute findings. OTHER: No other significant finding. IMPRESSION: 1. New 5.0 x 2.6 x 13.4 cm fluid collection in the left lateral gutter. Etiology of thi s is uncertain. Possibly infectious process. 2. Stable thickening of the perineum surrounding the inferior margin of the liver which may be posts urgical. 3. Small hepatic lesion in the inferior right lobe is slightly smaller in size when compared to prio r exam. 4. Study is limited secondary to lack of intra and retroperitoneal fat. TECHNICAL DOCUMENTATION: JOB ID: [id number] Quality ID # 436: Final reports with documentation of one or more dose reduction techniques (e.g., Au tomated exposure control, adjustment of the mA and/or kV according to patient size, use of iterative reconstruction technique) 2010 [employer]- All Rights Reserved Reading location - IP/workstation name: [email or web address]
--- NOTE | 2020-01-10 10:44 | RADIOLOGY REPORT (SQ) ---
EXAM DESCRIPTION: CT CHEST WITH; CT ABD/PELVIS WITH IV ORAL IMAGES COMPLETED DATE/TIME: 01/10/2020 9:33 am REASON FOR STUDY: COLON CANCER, PERITONEUM CANCER C18.9 MALIGNANT NEOPLASM OF COLON, UNSPECIFIED CONTRAST TYPE AND DOSE: contrast/concentration: Isovue 350.00 mmol/ml; Total Contrast Delivered: 41. 0 ml; Total Saline Delivered: 64.9 ml RENAL FUNCTION: 0.9 COMPARISON: None. TECHNIQUE: CT scan of the chest performed using helical scanning technique with dynamic intravenous contrast injection. Images reviewed with lung, soft tissue and bone windows. Reconstructed coronal a nd sagittal MPR images reviewed. All images stored on PACS. All CT scanners at this facility use dose modulation, iterative reconstruction, and/or weight based d osing when appropriate to reduce radiation dose to as low as reasonably achievable (ALARA). [facility]: Dose Right [facility]: CareDose [facility]: Dose Right [facility]: Teradose 4D [facility]: [employer] RADIATION DOSE: CT Rad equipment meets quality standard of care and radiation dose reduction techniq ues were employed. CTDIvol: 4.4 - 4.5 mGy. DLP: 838 mGy-cm. . LIMITATIONS: None. FINDINGS: AXILLAE: No adenopathy. CHEST WALL: No masses. No subcutaneous air. LUNGS: No nodules or masses. No pneumothorax. No infiltrates. PLEURA: There has been a slight increase in the nodular right basilar pleural thickening. There is a focal subpleural nodule on series 2, image 50 measured at 11.3 mm. On prior PET-CT this measured 8. 6 mm. THYROID: No masses or significant asymmetry. HILAR AND MEDIASTINAL STRUCTURES: No identified masses or abnormal nodes. AORTA AND GREAT VESSELS: No aneurysm. No dissection. PULMONARY ARTERIES: No identified pulmonary emboli. Study not optimized for the pulmonary arteries. HEART: No pericardial effusion. HARDWARE AND LIFELINES: None. BONES: No significant finding. OTHER: No other significant finding. IMPRESSION: Increasing nodular pleural thickening in the right lung base as described. There is a f ocal subpleural nodule medially measured at 11.3 mm. This was approximately 8.6 mm in greatest diame ter on prior study. Differential remains neoplasm versus infectious or inflammatory process. COMPARISON: The study is limited secondary to lack of intra and retroperitoneal fat. RADIATION DOSE: CT Rad equipment meets quality standard of care and radiation dose reduction techniq ues were employed. CTDIvol: 4.4 - 4.5 mGy. DLP: 838 mGy-cm. mGy. TECHNIQUE: CT scan of the abdomen and pelvis performed with intravenous and oral contrast using rsoe marie miranda scanning technique with dynamic intravenous contrast injection. Images reviewed with lung, soft tissue and bone windows. Reconstructed coronal and sagittal MPR images reviewed. Delayed images for evaluation of the urinary system also acquired and evaluated. All images stored on PACS. All CT scanners at this facility use dose modulation, iterative reconstruction, and/or weight based d osing when appropriate to reduce radiation dose to as low as reasonably achievable (ALARA). [facility]: Dose Right [facility]: SureCare [facility]: Dose Right [facility]: Teradose 4D [facility]: [employer] FINDINGS: LIVER: The liver is grossly stable in appearance. Small focal air decreased attenuation i n the inferior right lobe of liver stable in appearances measures 8.7 mm in greatest diameter. Previ ously this measured 12.4. Persistent mild perihepatic soft tissue attenuation which is unchanged and may related to prior surgery. SPLEEN: Prior splenectomy. PANCREAS: No masses. No significant calcifications. No adjacent inflammation or peripancreatic flui d collections. Pancreatic duct not dilated. GALLBLADDER: Surgically absent. ADRENAL GLANDS: No significant masses or asymmetry. RIGHT KIDNEY AND URETER: Multiple right renal cysts. No significant calcifications. No hydronephr osis or hydroureter. LEFT KIDNEY AND URETER: Multiple left renal cysts. No significant calcifications. No hydronephros is or hydroureter. AORTA AND VESSELS: No aneurysm. No dissection. Renal arteries, SMA, celiac without stenosis. RETROPERITONEUM: No retroperitoneal adenopathy, hemorrhage or masses. LARGE AND SMALL BOWEL: Mild small-bowel distention. No evidence of mechanical obstruction. No obvio us small bowel wall thickening allowing for nondistention. APPENDIX: Surgically absent. ABDOMINAL WALL: No hernia or masses. PERITONEAL CAVITY: Large fluid collection is now present in the left lateral gutter. This measured a pproximately 5.0 x 2.6 x 13.4 cm in greatest dimensions. A contains no we are. Hounsfield units vanita sure 23. PELVIS: No mass or free fluid. Normal bladder. BONES: No significant or acute findings. OTHER: No other significant finding. IMPRESSION: 1. New 5.0 x 2.6 x 13.4 cm fluid collection in the left lateral gutter. Etiology of thi s is uncertain. Possibly infectious process. 2. Stable thickening of the perineum surrounding the inferior margin of the liver which may be posts urgical. 3. Small hepatic lesion in the inferior right lobe is slightly smaller in size when compared to prio r exam. 4. Study is limited secondary to lack of intra and retroperitoneal fat. TECHNICAL DOCUMENTATION: JOB ID: [id number] Quality ID # 436: Final reports with documentation of one or more dose reduction techniques (e.g., Au tomated exposure control, adjustment of the mA and/or kV according to patient size, use of iterative reconstruction technique) 2010 [employer]- All Rights Reserved Reading location - IP/workstation name: [email or web address]
--- OUTSIDE RECORDS SUMMARY | 2020-01-13 09:39 | XMS REPORT ---
:1960 Author Organization [facility] [address] [place] [address] Care Team Providers Name Role Phone Tyrel Smith Attending Clinician Unavailable Allergies, Adverse Reactions, Alerts This patient has no known allergies or adverse reactions. Medications Ordered Filled Start Stop Current Ordering Indication Dosage Frequency Signature Comments Components Medication Medication Date Date Medication? Clinician (SIG) Name Name traMADol 2020-1 Yes 1 HCl 03-07 00:00: 00 OLANZapine 2020-1 Yes 1 03-01 00:00: 00 Bentyl 2020-0 Yes 1 10-30 00:00: 00 Flagyl 2020-0 2020- No 4-07 10-30 00:00: 10:59 00 :17 Potassium 2020-0 No 30meq Potassium Chloride 3-31 Chloride 00:00: 00 Sodium 2020-0 No 20mL Sodium Chloride 3-31 Chloride 00:00: 00 Lomotil 2020-0 2020- No 3-31 -03 00:00: 10:59 00 :17 Potassium 2020-0 No 20meq Potassium Chloride 3-24 Chloride 00:00: 00 Sodium 2020-0 No 20mL Sodium Chloride 3-24 Chloride 00:00: 00 Megestrol 2020-0 2020- No 20mL Acetate 3-24 09-03 00:00: 10:59 00 :17 Mvasi 2020-0 No 185mg Mvasi 3-10 00:00: 00 Sodium 2020-0 No 250mL Sodium Chloride 3-10 Chloride 00:00: 00 Dextrose 2020-0 No 60mL Dextrose 3-10 00:00: 00 Palonosetro 2020-0 No .25mg Palonosetr n HCl 3-10 on HCl 00:00: 00 Dexamethaso 2020-0 No 10mg Dexamethas ne Sodium 3-10 one Sodium Phosphate 00:00: Phosphate 00 Oxaliplatin 2020-0 No 106mg Oxaliplati 3-10 n 00:00: 00 Palonosetro 2020-0 No .25mg Palonosetr n HCl 2-25 on HCl 00:00: 00 Dexamethaso 2020-0 No 10mg Dexamethas ne Sodium 2-25 one Sodium Phosphate 00:00: Phosphate 00 Dextrose 2020-0 No 50mL Dextrose 2-25 00:00: 00 Oxaliplatin 2020-0 No 113mg Oxaliplati 2-25 n 00:00: 00 Sodium 2020-0 No 60mL Sodium Chloride 2-25 Chloride 00:00: 00 Mvasi 2020-0 No 189mg Mvasi 2-25 00:00: 00 Fluorouraci 2020-0 No 505mg Fluorourac l 2-25 il 00:00: 00 Potassium 2020-0 No 20meq Potassium Chloride 2-12 Chloride 00:00: 00 Sodium 2020-0 No 20mL Sodium Chloride 2-12 Chloride 00:00: 00 Palonosetro 2020-0 No .25mg Palonosetr n HCl 2-11 on HCl 00:00: 00 Dexamethaso 2020-0 No 10mg Dexamethas ne Sodium 2-11 one Sodium Phosphate 00:00: Phosphate 00 Dextrose 2020-0 No 60mL Dextrose 2-11 00:00: 00 Oxaliplatin 2020-0 No 114mg Oxaliplati 2-11 n 00:00: 00 Sodium 2020-0 No 80mL Sodium Chloride 2-11 Chloride 00:00: 00 Potassium 2020-0 No 10meq Potassium Chloride 2-11 Chloride 00:00: 00 Fluorouraci 2020-0 No 536mg Fluorourac l 2-11 il 00:00: 00 Folic Acid 2020-0 2020- No 1mg 2-11 04-07 00:00: 10:09 00 :42 Ondansetron 2020-0 2020- No 1 HCl 2-11 04-07 00:00: 10:09 00 :42 Potassium 2020-0 2020- No 1 Chloride 2-11 04-07 Kellee ER 00:00: 10:09 00 :42 Mvasi 2020-0 2020- No 191mg Mvasi 2-11 03-10 00:00: 00:00 00 :00 Palonosetro 2020-0 No .25mg Palonosetr n HCl 1-28 on HCl 00:00: 00 Dexamethaso 2020-0 No 10mg Dexamethas ne Sodium 1-28 one Sodium Phosphate 00:00: Phosphate 00 Dextrose 2020-0 No 80mL Dextrose 1-28 00:00: 00 Oxaliplatin 2020-0 No 116mg Oxaliplati 1-28 n 00:00: 00 Leucovorin 2020-0 No 544mg Leucovorin Calcium 1-28 Calcium 00:00: 00 Fluorouraci 2020-0 No 544mg Fluorourac l 1-28 il 00:00: 00 Reglan 2020-0 2020- No 1 -13 - 00:00: 09:35 00 :36 Palonosetro 2019-0 No .25mg Palonosetr n HCl 9-03 on HCl 00:00: 00 Dexamethaso 2019-0 No 10mg Dexamethas ne Sodium 9-03 one Sodium Phosphate 00:00: Phosphate 00 Dextrose 2019-0 No 60mL Dextrose 9-03 00:00: 00 Oxaliplatin 2019-0 No 126mg Oxaliplati 9-03 n 00:00: 00 Leucovorin 2019-0 No 592mg Leucovorin Calcium 9-03 Calcium 00:00: 00 Fluorouraci 2019-0 No 592mg Fluorourac l 9-03 il 00:00: 00 Palonosetro 2019-0 No .25mg Palonosetr n HCl 8-19 on HCl 00:00: 00 Dexamethaso 2019-0 No 10mg Dexamethas ne Sodium 8-19 one Sodium Phosphate 00:00: Phosphate 00 Dextrose 2019-0 No 60mL Dextrose 8-19 00:00: 00 Oxaliplatin 2019-0 No 127mg Oxaliplati 8-19 n 00:00: 00 Leucovorin 2019-0 No 596mg Leucovorin Calcium 8-19 Calcium 00:00: 00 Fluorouraci 2019-0 No 596mg Fluorourac l 8-19 il 00:00: 00 Potassium 2019-0 No 30meq Potassium Chloride 8-14 Chloride 00:00: 00 Sodium 2019-0 No 20mL Sodium Chloride 8-14 Chloride 00:00: 00 Avastin 2019-0 No 245mg Avastin 7-31 00:00: 00 Sodium 2019-0 No 250mL Sodium Chloride 7-31 Chloride 00:00: 00 Palonosetro 2019-0 No .25mg Palonosetr n HCl 7-31 on HCl 00:00: 00 Dexamethaso 2019-0 No 10mg Dexamethas ne Sodium 7-31 one Sodium Phosphate 00:00: Phosphate 00 Dextrose 2019-0 No 70mL Dextrose 7-31 00:00: 00 Oxaliplatin 2019-0 No 127mg Oxaliplati 7-31 n 00:00: 00 Leucovorin 2019-0 No 596mg Leucovorin Calcium 7-31 Calcium 00:00: 00 Fluorouraci 2019-0 No 596mg Fluorourac l 7-31 il 00:00: 00 Avastin 2019-0 No 250mg Avastin 7-17 00:00: 00 Sodium 2019-0 No 20mL Sodium Chloride 7-17 Chloride 00:00: 00 Dextrose 2019-0 No 80mL Dextrose 7-17 00:00: 00 Palonosetro 2019-0 No .25mg Palonosetr n HCl 7-17 on HCl 00:00: 00 Dexamethaso 2019-0 No 10mg Dexamethas ne Sodium 7-17 one Sodium Phosphate 00:00: Phosphate 00 Oxaliplatin 2019-0 No 128mg Oxaliplati 7-17 n 00:00: 00 Leucovorin 2019-0 No 600mg Leucovorin Calcium 7-17 Calcium 00:00: 00 Fluorouraci 2019-0 No 600mg Fluorourac l 7-17 il 00:00: 00 Potassium 2019-0 No 30meq Potassium Chloride 7-16 Chloride 00:00: 00 Sodium 2019-0 No 30mL Sodium Chloride 7-16 Chloride 00:00: 00 Klor-Con 2019-0 2020- No 1 M20 7-16 02-11 00:00: 09:35 00 :36 Sodium 2019-0 No 30mL Sodium Chloride 7-15 Chloride 00:00: 00 Potassium 2019-0 2020- No 30meq Potassium Chloride 7-15 03-31 Chloride 00:00: 00:00 00 :00 Avastin 2019-0 No 250mg Avastin 7-01 00:00: 00 Sodium 2019-0 No 250mL Sodium Chloride 7-01 Chloride 00:00: 00 Dextrose 2019-0 No 100mL Dextrose 7-01 00:00: 00 Palonosetro 2019-0 No .25mg Palonosetr n HCl 7-01 on HCl 00:00: 00 Dexamethaso 2019-0 No 10mg Dexamethas ne Sodium 7-01 one Sodium Phosphate 00:00: Phosphate 00 Oxaliplatin 2019-0 No 128mg Oxaliplati 7-01 n 00:00: 00 Leucovorin 2018-0 No 600mg Leucovorin Calcium 7- Calcium 00:00: 00 Fluorouraci 2019-0 No 600mg Fluorourac l 7- il 00:00: 00 Potassium 2019-0 2020- No 20meq Chloride ER 7- 02 00:00: 00:00 00 :00 Marinol 2018-0 2019- No 7-02-15 00:00: 08:20 00 :45 Duragesic-1 2019-0 2020- No 00 08-24 00:00: 08:53 00 :54 Hydration 2019-0 2020- No 1000mL 1000mL NS 08-15 00:00: 00:00 00 :00 Promethazin 2018-0 2019- No 25mg e HCl 08-15 00:00: 08:20 00 :45 Ondansetron 2018-0 2019- No 8mg Ondansetro HCl 08-15 06-19 n HCl 00:00: 00:00 00 :00 Sodium 2019-0 No 20mL Sodium Chloride 6-17 Chloride 00:00: 00 Dextrose 2019-0 No 80mL Dextrose 6-17 00:00: 00 Sodium 2019-0 2020- No 20mL Chloride 6-17 03-31 00:00: 00:00 00 :00 5-FU PUMP 2019-0 2020- No 3168mg 6-17 03-10 00:00: 00:00 00 :00 Dexamethaso 2019-0 2020- No 10mg Dexamethas ne Sodium 6-17 03-10 one Sodium Phosphate 00:00: 00:00 Phosphate 00 :00 Dextrose 2019-0 2020- No 60mL 6-17 03-10 00:00: 00:00 00 :00 Oxaliplatin 2019-0 2020- No 131mg Oxaliplati 6-17 03-10 n 00:00: 00:00 00 :00 Palonosetro 2019-0 2020- No .25mg Palonosetr n HCl 6-17 03-10 on HCl 00:00: 00:00 00 :00 Fluorouraci 2018-0 2020- No 616mg Fluorourac l 6-17 - il 00:00: 00:00 00 :00 Leucovorin 2019-0 2020- No 600mg Leucovorin Calcium 6-17 - Calcium 00:00: 00:00 00 :00 Avastin 2019-0 2019- No 268mg Avastin 6-17 07-31 00:00: 00:00 00 :00 Keflex 2019-0 2019- No 1 617 -24 00:00: 00:00 00 :00 Duragesic-7 2019-0 2020- No 1 5 6- 03-17 00:00: 13:57 00 :59 Diflucan 2019-0 2019- No 1 6 06-16 00:00: 00:00 00 :00 Duragesic-5 2019-0 2020- No 1 0 08-02 0420 00:00: 08:15 00 :29 oxyCODONE 2019-0 2020- No 1 HCl 30 1008 00:00: 13:59 00 :16 Duragesic-2 2019-0 2020- No 1 5 07-26 0903 00:00: 10:59 00 :17 Senna S 2019-0 2019- No 2 07-26 00:00: 08:20 00 :45 Zofran ODT 2018-0 2019- No 1 07-26 00:00: 08:20 00 :55 Aleve Yes 1 Metoprolol Yes 1 Succinate metroNIDAZO No 1 LE oxyCODONE No 1 HCl Lomotil Yes 1 Norvasc Yes 1 metroNIDAZO 2020- No 1 LE 10-30 10:59 :26 oxyCODONE 2020- No 1 HCl 10-30 10:59 :32 Advil 2020- No 1 04-09 09:35 :07 oxyCODONE 2020- No 1 HCl 04-09 09:35 :01 amLODIPine 2020- No 1 Besylate 03-11 16:14 :41 Colace 2020- No 03-11 16:14 :51 Ibuprofen 2020- No 03-11 16:16 :04 Lovastatin 2020- No 1 03-11 16:15 :02 MiraLax 2020- No 03-11 16:15 :10 Atorvastati 2019- No 1 n Calcium 07-26 10:35 :05 HYDROmorpho 2018- No ne HCl 07-26 10:34 :59 Problems Condition Condition Condition Status Onset Resolution Last Treatin g Comments Name Details Category Date Date Treatment Clinician Date Patient Patient Diagnosis active 2019-02 encounter encounter 103 status status 00:00: 00 Diarrhea Diarrhea Diagnosis active 2020-0 3-24 00:00: 00 Dysuria Dysuria Diagnosis active 8-14 00:00: 00 Hypokalemia Hypokalemia Diagnosis active 7-15 00:00: 00 Dehydration Dehydration Diagnosis active 619 00:00: 00 Nausea Nausea Diagnosis active 6-19 00:00: 00 Patient Patient Diagnosis active encounter encounter 6-17 status status 00:00: 00 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 0000-115.0000 (Est)) Glucose (test code = Glucose) 100.0000 mg/dL 65.0000-99.0000 BUN (test code = BUN) 19.0000 mg/dL 8.0000-27.0000 eGFR Hru-Ulzuvmo-Vjkyzhzt (test code = eGFR 91.0000 Clo-Ibsczbf-Edtnqfgy) eGFR -Nigerien (test code = eGFR 105.0000 -Nigerien) BUN/Creat Ratio (test code = BUN/Creat Ratio) 26.0000 12 .0000-28.0000 Sodium (test code = Sodium) 143.0000 mmol/L 134.0000-144.0000 Potassium (test code = Potassium) 4.2000 mmol/L 3.5000-5.2000 Chloride (test code = Chloride) 107.0000 mmol/L 96.0000-106.0000 CO2 (test code = CO2) 22.0000 mmol/L 20.0000-29.0000 Calcium (test code = Calcium) 9.5000 mg/dL 8.7000-10.3000 Protein, Total (test code = Protein, Total) 6.4000 g/dL 6.00 00-8.5000 Albumin (test code = Albumin) 4.0000 g/dL 3.8000-4.8000 Globulin (test code = Globulin) 2.4000 g/dL 1.5000-4.5000 A/G Ratio (test code = A/G Ratio) 1.7000 1.2000-2.2000 Bilirubin, Total (test code = Bilirubin, Total) 0.2000 mg/dL 0.0000-1.2000 Alkaline Phosphatase (test code = Alkaline 97.0000 39.00 00-117.0000 Phosphatase) AST (SGOT) (test code = AST (SGOT)) 19.0000 0.0000-40.00 00 ALT (SGPT) (test code = ALT (SGPT)) 13.0000 0.0000-32.00 00 [id number] 14:58:00 Test Item Value Reference Range Comments CEA (test code = CEA) 214.0000 ng/mL 0.0000-4.7000 CA 19-9 (test code = CA 19-9) 762.0000 0.0000-35.0000 CA 125 (test code = CA 125) 66.4000 0.0000-38.1000 [id number] 14:40:00 Test Item Value Reference Range Comments WBC (test code = WBC) 8.8000 4.0000-10.0000 Lymphocytes % (test code = Lymphocytes %) 26.5000 % 22.400 0-43.6000 MID% (test code = MID%) 7.0000 % 1.2000-11.2000 Neutrophils % (test code = Neutrophils %) 66.5000 % 48.900 0-69.9000 Lymphocytes (test code = Lymphocytes) 2.3000 1.2000-3.2 000 MID (test code = MID) 0.7000 0.1000-1.1000 Neutrophils (test code = Neutrophils) 5.8000 1.5000-6.7 000 RBC (test code = RBC) 4.1000 3.7000-4.9000 HGB (test code = HGB) 11.3000 g/dL 11.2000-18.0000 HCT (test code = HCT) 33.4000 % 34.0000-44.0000 MCV (test code = MCV) 81.4000 fL 80.0000-94.0000 MCH (test code = MCH) 27.6000 pg 27.0000-34.0000 MCHC (test code = MCHC) 33.9000 g/dL 31.5000-36.0000 RDW (test code = RDW) 15.7000 11.0000-18.0000 PLT (test code = PLT) 482.0000 140.0000-440.0000 MPV (test code = MPV) 7.8000 fL 6.8000-10.6000 [id number] 13:08:00 Test Item Value Reference Range Comments WBC (test code = WBC) 9.4000 4.0000-10.0000 Lymphocytes % (test code = Lymphocytes %) 33.4000 % 22.400 0-43.6000 MID% (test code = MID%) 6.2000 % 1.2000-11.2000 Neutrophils % (test code = Neutrophils %) 60.4000 % 48.900 0-69.9000 Lymphocytes (test code = Lymphocytes) 3.1000 1.2000-3.2 000 MID (test code = MID) 0.6000 0.1000-1.1000 Neutrophils (test code = Neutrophils) 5.7000 1.5000-6.7 000 RBC (test code = RBC) 4.0600 3.7000-4.9000 HGB (test code = HGB) 11.4000 g/dL 11.2000-18.0000 HCT (test code = HCT) 34.1000 % 34.0000-44.0000 MCV (test code = MCV) 84.0000 fL 80.0000-94.0000 MCH (test code = MCH) 28.0000 pg 27.0000-34.0000 MCHC (test code = MCHC) 33.4000 g/dL 31.5000-36.0000 RDW (test code = RDW) 15.3000 11.0000-18.0000 PLT (test code = PLT) 449.0000 140.0000-440.0000 MPV (test code = MPV) 7.7000 fL 6.8000-10.6000 [id number] 11:26:37 Test Item Value Reference Range Comments Glucose (test code = Glucose) 148.0000 mg/dL 60.0000-125.0000 BUN (test code = BUN) 24.0000 mg/dL 5.0000-26.0000 Creatinine (test code = Creatinine) 0.9000 mg/dL 0.5000-1.500 0 Cr Clearance (Est) (test code = Cr 37.8900 75.0000-115.0 000 Clearance (Est)) Sodium (test code = Sodium) 139.8000 mmol/L 135.0000-148.0000 Potassium (test code = Potassium) 3.5000 mmol/L 3.5000-5.5000 Chloride (test code = Chloride) 107.0000 mmol/L 96.0000-109.0000 CO2 (test code = CO2) 22.0000 mmol/L 21.0000-32.0000 Calcium (test code = Calcium) 9.2000 mg/dL 8.5000-10.6000 Protein, Total (test code = Protein, 6.4000 g/dL 6.0000-8.50 00 Total) Albumin (test code = Albumin) 3.8000 g/dL 3.6000-4.8000 Bilirubin, Total (test code = Bilirubin, 0.5000 mg/dL 0.1000- 1.2000 Total) Alkaline Phosphatase (test code = Alkaline 86.0000 55.00 00-165.0000 Phosphatase) AST (SGOT) (test code = AST (SGOT)) 31.0000 0.0000-45.00 00 ALT (SGPT) (test code = ALT (SGPT)) 18.0000 0.0000-50.00 00 CA [id number] 11:26:37 Test Item Value Reference Range Comments CA 125 (test code = CA 125) 62.9000 0.0000-35.0000 CA 19-9 (test code = CA 19-9) 267.0000 0.0000-37.0000 CEA (test code = CEA) 92.2000 ng/mL 0.0000-3.0000 [facility] 2019 CORONAVIRUS JOSE PANEL\S\2019-08-20 09:13:00 Test Item Value Reference Range Comments [facility] 2019 NOVEL CORONAVIRUS JOSE (test code = NOT DETECTED [id number]) [facility] CORONAVIRUS 2019 JOSE SOURC (test code = NASOPHARYNGEAL SOURCE3) [id number] 14:25:00 Test Item Value Reference Range Comments Creatinine (test code = Creatinine) 0.7000 mg/dL 0.5700-1.000 0 Cr Clearance (Est) (test code = Cr 47.6100 75.0000-115.0 000 Clearance (Est)) Glucose (test code = Glucose) 92.0000 mg/dL 65.0000-99.0000 BUN (test code = BUN) 10.0000 mg/dL 8.0000-27.0000 eGFR Byp-Zvvqosr-Pkmfwnvn (test code = 94.0000 eGFR Ooa-Suaafhu-Kboshlwq) eGFR -Nigerien (test code = eGFR 109.0000 -Nigerien) BUN/Creat Ratio (test code = BUN/Creat 14.0000 12.0000-2 8.0000 Ratio) Sodium (test code = Sodium) 141.0000 mmol/L 134.0000-144.0000 Potassium (test code = Potassium) 3.5000 mmol/L 3.5000-5.2000 Chloride (test code = Chloride) 104.0000 mmol/L 96.0000-106.0000 CO2 (test code = CO2) 23.0000 mmol/L 20.0000-29.0000 Calcium (test code = Calcium) 9.1000 mg/dL 8.7000-10.3000 Protein, Total (test code = Protein, 6.2000 g/dL 6.0000-8.50 00 Total) Albumin (test code = Albumin) 3.6000 g/dL 3.8000-4.9000 Globulin (test code = Globulin) 2.6000 g/dL 1.5000-4.5000 A/G Ratio (test code = A/G Ratio) 1.4000 1.2000-2.2000 Bilirubin, Total (test code = Bilirubin, 0.3000 mg/dL 0.0000- 1.2000 Total) Alkaline Phosphatase (test code = Alkaline 61.0000 39.00 00-117.0000 Phosphatase) AST (SGOT) (test code = AST (SGOT)) 22.0000 0.0000-40.00 00 ALT (SGPT) (test code = ALT (SGPT)) 18.0000 0.0000-32.00 00 Pre-Albumin (test code = Pre-Albumin) 23.0000 mg/dL 10.0000-36 .0000 [id number] 14:25:00 Test Item Value Reference Range Comments CEA (test code = CEA) 10.9000 ng/mL 0.0000-4.7000 CA 19-9 (test code = CA 19-9) 50.0000 0.0000-35.0000 CA 125 (test code = CA 125) 34.5000 0.0000-38.1000 [id number] 13:43:00 Test Item Value Reference Range Comments WBC (test code = WBC) 8.3000 4.0000-10.0000 Lymphocytes % (test code = Lymphocytes %) 32.8000 % 22.400 0-43.6000 MID% (test code = MID%) 6.2000 % 1.2000-11.2000 Neutrophils % (test code = Neutrophils %) 61.0000 % 48.900 0-69.9000 Lymphocytes (test code = Lymphocytes) 2.7000 1.2000-3.2 000 MID (test code = MID) 0.5000 0.1000-1.1000 Neutrophils (test code = Neutrophils) 5.1000 1.5000-6.7 000 RBC (test code = RBC) 5.1300 3.7000-4.9000 HGB (test code = HGB) 13.8000 g/dL 11.2000-18.0000 HCT (test code = HCT) 44.1000 % 34.0000-44.0000 MCV (test code = MCV) 85.8000 fL 80.0000-94.0000 MCH (test code = MCH) 26.8000 pg 27.0000-34.0000 MCHC (test code = MCHC) 31.3000 g/dL 31.5000-36.0000 RDW (test code = RDW) 19.9000 11.0000-18.0000 PLT (test code = PLT) 302.0000 140.0000-440.0000 MPV (test code = MPV) 8.2000 fL 6.8000-10.6000 [id number] 09:54:00 Test Item Value Reference Range Comments Creatinine (test code = Creatinine) 0.9000 mg/dL 0.5000-1.200 0 Cr Clearance (Est) (test code = Cr 37.0300 75.0000-115.0 000 Clearance (Est)) Glucose (test code = Glucose) 135.0000 mg/dL 70.0000-118.0000 BUN (test code = BUN) 15.0000 mg/dL 7.0000-22.0000 Sodium (test code = Sodium) 137.0000 mmol/L 128.0000-145.0000 Potassium (test code = Potassium) 3.3000 mmol/L 3.6000-5.1000 Chloride (test code = Chloride) 107.0000 mmol/L 96.0000-108.0000 CO2 (test code = CO2) 25.0000 mmol/L 18.0000-33.0000 Calcium (test code = Calcium) 9.4800 mg/dL 8.0000-10.3000 Alkaline Phosphatase (test code = Alkaline 78.0000 42.00 00-141.0000 Phosphatase) ALT (SGPT) (test code = ALT (SGPT)) 19.0000 10.0000-47.0 000 AST (SGOT) (test code = AST (SGOT)) 29.0000 11.0000-37.0 000 Bilirubin, Total (test code = Bilirubin, 0.5000 mg/dL 0.0000- 1.6000 Total) Albumin (test code = Albumin) 4.0000 g/dL 3.5000-5.5000 Protein, Total (test code = Protein, 6.7000 g/dL 6.4000-8.10 00 Total) eGFR -Nigerien (test code = eGFR 77.0000 60.0000- 200.0000 -Nigerien) eGFR Kkw-Knwobta-Blvhcjan (test code = 64.0000 60.0000-2 00.0000 eGFR Zam-Fxxdrme-Lqqjfmhx) U [id number] 09:00:00 Test Item Value Reference Range Comments U Color (test code = U Color) Dark yello U Urobilinogen (test code = U Urobilinogen) 0.2 U Specific Holden (test code = U Specific 1.0250 Holden) U Appearance (test code = U Appearance) Cloudy U Glucose (test code = U Glucose) Negative U Bilirubin (test code = U Bilirubin) Negative U Ketones (test code = U Ketones) Negative U Blood (test code = U Blood) Negative U pH (test code = U pH) 6.0000 5.0000-8.0000 U Protein (test code = U Protein) 100 U Nitrite (test code = U Nitrite) Negative U Leuk Esterase (test code = U Leuk Esterase) Negative [id number] 08:59:00 Test Item Value Reference Range Comments WBC (test code = WBC) 7.3000 4.0000-10.0000 Lymphocytes % (test code = Lymphocytes %) 29.0000 % 22.400 0-43.6000 MID% (test code = MID%) 7.5000 % 1.2000-11.2000 Neutrophils % (test code = Neutrophils %) 63.5000 % 48.900 0-69.9000 Lymphocytes (test code = Lymphocytes) 2.1000 1.2000-3.2 000 MID (test code = MID) 0.6000 0.1000-1.1000 Neutrophils (test code = Neutrophils) 4.6000 1.5000-6.7 000 RBC (test code = RBC) 5.1100 3.7000-4.9000 HGB (test code = HGB) 13.2000 g/dL 11.2000-18.0000 HCT (test code = HCT) 41.6000 % 34.0000-44.0000 MCV (test code = MCV) 81.3000 fL 80.0000-94.0000 MCH (test code = MCH) 25.8000 pg 27.0000-34.0000 MCHC (test code = MCHC) 31.7000 g/dL 31.5000-36.0000 RDW (test code = RDW) 23.0000 11.0000-18.0000 PLT (test code = PLT) 370.0000 140.0000-440.0000 MPV (test code = MPV) 7.9000 fL 6.8000-10.6000 [id number] 08:59:00 Test Item Value Reference Range Comments Creatinine (test code = Creatinine) 1.0000 mg/dL 0.5000-1.200 0 Cr Clearance (Est) (test code = Cr 34.0100 75.0000-115.0 000 Clearance (Est)) Glucose (test code = Glucose) 145.0000 mg/dL 70.0000-118.0000 BUN (test code = BUN) 12.0000 mg/dL 7.0000-22.0000 Sodium (test code = Sodium) 138.0000 mmol/L 128.0000-145.0000 Potassium (test code = Potassium) 2.9000 mmol/L 3.6000-5.1000 Chloride (test code = Chloride) 104.0000 mmol/L 96.0000-108.0000 CO2 (test code = CO2) 26.0000 mmol/L 18.0000-33.0000 Calcium (test code = Calcium) 8.7100 mg/dL 8.0000-10.3000 Alkaline Phosphatase (test code = Alkaline 74.0000 42.00 00-141.0000 Phosphatase) ALT (SGPT) (test code = ALT (SGPT)) 14.0000 10.0000-47.0 000 AST (SGOT) (test code = AST (SGOT)) 24.0000 11.0000-37.0 000 Bilirubin, Total (test code = Bilirubin, 0.4000 mg/dL 0.0000- 1.6000 Total) Albumin (test code = Albumin) 3.7000 g/dL 3.5000-5.5000 Protein, Total (test code = Protein, 6.3000 g/dL 6.4000-8.10 00 Total) eGFR -Nigerien (test code = eGFR 68.0000 60.0000- 200.0000 -Nigerien) eGFR Eae-Kskgmwc-Qlkfxcqa (test code = 57.0000 60.0000-2 00.0000 eGFR Agl-Qactghw-Hesojmai) [id number] 09:41:00 Test Item Value Reference Range Comments WBC (test code = WBC) 6.5000 4.0000-10.0000 Lymphocytes % (test code = Lymphocytes %) 45.6000 % 22.400 0-43.6000 MID% (test code = MID%) 9.2000 % 1.2000-11.2000 Neutrophils % (test code = Neutrophils %) 45.2000 % 48.900 0-69.9000 Lymphocytes (test code = Lymphocytes) 2.9000 1.2000-3.2 000 MID (test code = MID) 0.7000 0.1000-1.1000 Neutrophils (test code = Neutrophils) 2.9000 1.5000-6.7 000 RBC (test code = RBC) 5.4600 3.7000-4.9000 HGB (test code = HGB) 13.5000 g/dL 11.2000-18.0000 HCT (test code = HCT) 44.8000 % 34.0000-44.0000 MCV (test code = MCV) 81.9000 fL 80.0000-94.0000 MCH (test code = MCH) 24.8000 pg 27.0000-34.0000 MCHC (test code = MCHC) 30.3000 g/dL 31.5000-36.0000 RDW (test code = RDW) 23.7000 11.0000-18.0000 PLT (test code = PLT) 253.0000 140.0000-440.0000 MPV (test code = MPV) 7.8000 fL 6.8000-10.6000 U Color (test code = U Color) Light yell U Urobilinogen (test code = U Urobilinogen) 0.2 U Specific Holden (test code = U Specific 1.0200 Holden) U Appearance (test code = U Appearance) Sl Cloudy U Glucose (test code = U Glucose) Negative U Bilirubin (test code = U Bilirubin) Negative U Ketones (test code = U Ketones) Negative U Blood (test code = U Blood) Negative U pH (test code = U pH) 7.0000 5.0000-8.0000 U Protein (test code = U Protein) Trace U Nitrite (test code = U Nitrite) Negative U Leuk Esterase (test code = U Leuk Esterase) Trace [id number] 09:41:00 Test Item Value Reference Range Comments Creatinine (test code = Creatinine) 0.7000 mg/dL 0.5000-1.200 0 Cr Clearance (Est) (test code = Cr 48.2300 75.0000-115.0 000 Clearance (Est)) Glucose (test code = Glucose) 112.0000 mg/dL 70.0000-118.0000 BUN (test code = BUN) 11.0000 mg/dL 7.0000-22.0000 Sodium (test code = Sodium) 139.0000 mmol/L 128.0000-145.0000 Potassium (test code = Potassium) 3.0000 mmol/L 3.6000-5.1000 Chloride (test code = Chloride) 106.0000 mmol/L 96.0000-108.0000 CO2 (test code = CO2) 26.0000 mmol/L 18.0000-33.0000 Calcium (test code = Calcium) 9.1500 mg/dL 8.0000-10.3000 Alkaline Phosphatase (test code = Alkaline 75.0000 42.00 00-141.0000 Phosphatase) ALT (SGPT) (test code = ALT (SGPT)) 15.0000 10.0000-47.0 000 AST (SGOT) (test code = AST (SGOT)) 21.0000 11.0000-37.0 000 Bilirubin, Total (test code = Bilirubin, 0.5000 mg/dL 0.0000- 1.6000 Total) Albumin (test code = Albumin) 3.8000 g/dL 3.5000-5.5000 Protein, Total (test code = Protein, 6.5000 g/dL 6.4000-8.10 00 Total) eGFR -Nigerien (test code = eGFR 103.0000 60.0000- 200.0000 -Nigerien) eGFR Bqz-Ptlweyz-Fefpszat (test code = 85.0000 60.0000-2 00.0000 eGFR Gqb-Mjonsmp-Dwitpdno) Iron, [id number] 13:20:00 Test Item Value Reference Range Comments Iron, Total (test code = Iron, Total) 57.0000 27.0000-15 9.0000 TIBC (test code = TIBC) 308.0000 250.0000-450.0000 UIBC (test code = UIBC) 251.0000 131.0000-425.0000 % Iron Saturation (test code = % Iron 19.0000 % 15.0000-55 .0000 Saturation) Ferritin (test code = Ferritin) 152.0000 ng/mL 15.0000-150.0000 [id number] 13:20:00 Test Item Value Reference Range Comments CEA (test code = CEA) 18.7000 ng/mL 0.0000-4.7000 CA 19-9 (test code = CA 19-9) 71.0000 0.0000-35.0000 CA 125 (test code = CA 125) 46.2000 0.0000-38.1000 U [id number] 09:27:00 Test Item Value Reference Range Comments U Color (test code = U Color) Yellow U Urobilinogen (test code = U Urobilinogen) 0.2 U Specific Holden (test code = U Specific Holden) 1.0200 U Appearance (test code = U Appearance) Clear U Glucose (test code = U Glucose) Negative U Bilirubin (test code = U Bilirubin) Negative U Ketones (test code = U Ketones) Negative U Blood (test code = U Blood) Negative U pH (test code = U pH) 7.0000 5.0000-8.0000 U Protein (test code = U Protein) Trace U Nitrite (test code = U Nitrite) Negative U Leuk Esterase (test code = U Leuk Esterase) Small [id number] 09:16:00 Test Item Value Reference Range Comments Creatinine (test code = Creatinine) 0.7000 mg/dL 0.5000-1.200 0 Cr Clearance (Est) (test code = Cr 49.9400 75.0000-115.0 000 Clearance (Est)) Glucose (test code = Glucose) 106.0000 mg/dL 70.0000-118.0000 BUN (test code = BUN) 9.0000 mg/dL 7.0000-22.0000 Sodium (test code = Sodium) 139.0000 mmol/L 128.0000-145.0000 Potassium (test code = Potassium) 3.4000 mmol/L 3.6000-5.1000 Chloride (test code = Chloride) 105.0000 mmol/L 96.0000-108.0000 CO2 (test code = CO2) 26.0000 mmol/L 18.0000-33.0000 Calcium (test code = Calcium) 8.9800 mg/dL 8.0000-10.3000 Alkaline Phosphatase (test code = Alkaline 76.0000 42.00 00-141.0000 Phosphatase) ALT (SGPT) (test code = ALT (SGPT)) 13.0000 10.0000-47.0 000 AST (SGOT) (test code = AST (SGOT)) 20.0000 11.0000-37.0 000 Bilirubin, Total (test code = Bilirubin, 0.5000 mg/dL 0.0000- 1.6000 Total) Albumin (test code = Albumin) 3.7000 g/dL 3.5000-5.5000 Protein, Total (test code = Protein, 6.1000 g/dL 6.4000-8.10 00 Total) eGFR -Nigerien (test code = eGFR 103.0000 60.0000- 200.0000 -Nigerien) eGFR Tck-Zmzyowu-Vzsyuiwj (test code = 85.0000 60.0000-2 00.0000 eGFR Lzj-Ojeaurp-Ghnhtxlz) [id number] 09:15:00 Test Item Value Reference Range Comments WBC (test code = WBC) 4.3000 4.0000-10.0000 Lymphocytes % (test code = Lymphocytes %) 69.4000 % 22.400 0-43.6000 MID% (test code = MID%) 7.1000 % 1.2000-11.2000 Neutrophils % (test code = Neutrophils %) 23.5000 % 48.900 0-69.9000 Lymphocytes (test code = Lymphocytes) 2.9000 1.2000-3.2 000 MID (test code = MID) 0.4000 0.1000-1.1000 Neutrophils (test code = Neutrophils) 1.0000 1.5000-6.7 000 RBC (test code = RBC) 5.1300 3.7000-4.9000 HGB (test code = HGB) 12.9000 g/dL 11.2000-18.0000 HCT (test code = HCT) 40.7000 % 34.0000-44.0000 MCV (test code = MCV) 79.4000 fL 80.0000-94.0000 MCH (test code = MCH) 25.1000 pg 27.0000-34.0000 MCHC (test code = MCHC) 31.6000 g/dL 31.5000-36.0000 RDW (test code = RDW) 22.8000 11.0000-18.0000 PLT (test code = PLT) 222.0000 140.0000-440.0000 MPV (test code = MPV) 7.5000 fL 6.8000-10.6000 U [id number] 11:10:00 Test Item Value Reference Range Comments U Color (test code = U Color) Yellow U Urobilinogen (test code = U Urobilinogen) 0.2 U Specific Holden (test code = U Specific 1.0150 Holden) U Appearance (test code = U Appearance) Sl Cloudy U Glucose (test code = U Glucose) Negative U Bilirubin (test code = U Bilirubin) Negative U Ketones (test code = U Ketones) Negative U Blood (test code = U Blood) Negative U pH (test code = U pH) 7.0000 5.0000-8.0000 U Protein (test code = U Protein) Negative U Nitrite (test code = U Nitrite) Negative U Leuk Esterase (test code = U Leuk Esterase) Negative [id number] 10:53:00 Test Item Value Reference Range Comments Creatinine (test code = Creatinine) 0.7000 mg/dL 0.5000-1.200 0 Cr Clearance (Est) (test code = Cr 50.8000 75.0000-115.0 000 Clearance (Est)) Glucose (test code = Glucose) 115.0000 mg/dL 70.0000-118.0000 BUN (test code = BUN) 12.0000 mg/dL 7.0000-22.0000 Sodium (test code = Sodium) 139.0000 mmol/L 128.0000-145.0000 Potassium (test code = Potassium) 3.2000 mmol/L 3.6000-5.1000 Chloride (test code = Chloride) 105.0000 mmol/L 96.0000-108.0000 CO2 (test code = CO2) 27.0000 mmol/L 18.0000-33.0000 Calcium (test code = Calcium) 8.8500 mg/dL 8.0000-10.3000 Alkaline Phosphatase (test code = Alkaline 63.0000 42.00 00-141.0000 Phosphatase) ALT (SGPT) (test code = ALT (SGPT)) 10.0000 10.0000-47.0 000 AST (SGOT) (test code = AST (SGOT)) 19.0000 11.0000-37.0 000 Bilirubin, Total (test code = Bilirubin, 0.3000 mg/dL 0.0000- 1.6000 Total) Albumin (test code = Albumin) 3.5000 g/dL 3.5000-5.5000 Protein, Total (test code = Protein, 6.2000 g/dL 6.4000-8.10 00 Total) eGFR -Nigerien (test code = eGFR 103.0000 60.0000- 200.0000 -Nigerien) eGFR Bar-Ehuqzsc-Mjvzuuwf (test code = 85.0000 60.0000-2 00.0000 eGFR Bhr-Jpmprnt-Yhrxnpcr) [id number] 10:52:00 Test Item Value Reference Range Comments WBC (test code = WBC) 5.3000 4.0000-10.0000 Lymphocytes % (test code = Lymphocytes %) 58.2000 % 22.400 0-43.6000 MID% (test code = MID%) 7.9000 % .1999- Neutrophils % (test code = Neutrophils %) 33.9000 % 48.900 0-69.9000 Lymphocytes (test code = Lymphocytes) 3.0000 1.2000-3.2 000 MID (test code = MID) 0.5000 0.1000-1.1000 Neutrophils (test code = Neutrophils) 1.8000 1.5000-6.7 000 RBC (test code = RBC) 4.9200 3.7000-4.9000 HGB (test code = HGB) 12.0000 g/dL 11.2000-18.0000 HCT (test code = HCT) 39.0000 % 34.0000-44.0000 MCV (test code = MCV) 79.2000 fL 80.0000-94.0000 MCH (test code = MCH) 24.4000 pg 27.0000-34.0000 MCHC (test code = MCHC) 30.8000 g/dL 31.5000-36.0000 RDW (test code = RDW) 21.7000 11.0000-18.0000 PLT (test code = PLT) 265.0000 140.0000-440.0000 MPV (test code = MPV) 7.7000 fL 6.8000-10.6000 [id number] 11:19:00 Test Item Value Reference Range Comments WBC (test code = WBC) 6.2000 4.0000-10.0000 Lymphocytes % (test code = Lymphocytes %) 59.2000 % 22.400 0-43.6000 MID% (test code = MID%) 8.8000 % .1999-11 Neutrophils % (test code = Neutrophils %) 32.0000 % 48.900 0-69.9000 Lymphocytes (test code = Lymphocytes) 3.7000 1.2000-3.2 000 MID (test code = MID) 0.6000 0.1000-1.1000 Neutrophils (test code = Neutrophils) 1.9000 1.5000-6.7 000 RBC (test code = RBC) 4.8600 3.7000-4.9000 HGB (test code = HGB) 12.2000 g/dL 11.2000-18.0000 HCT (test code = HCT) 37.6000 % 34.0000-44.0000 MCV (test code = MCV) 77.2000 fL 80.0000-94.0000 MCH (test code = MCH) 25.1000 pg 27.0000-34.0000 MCHC (test code = MCHC) 32.5000 g/dL 31.5000-36.0000 RDW (test code = RDW) 20.4000 11.0000-18.0000 PLT (test code = PLT) 268.0000 140.0000-440.0000 MPV (test code = MPV) 7.7000 fL 6.8000-10.6000 U [id number] 09:20:00 Test Item Value Reference Range Comments U Color (test code = U Color) Other U Urobilinogen (test code = U Urobilinogen) 0.2 U Specific Holden (test code = U Specific Holden) 1.0200 U Appearance (test code = U Appearance) Cloudy U Glucose (test code = U Glucose) Negative U Bilirubin (test code = U Bilirubin) Small U Ketones (test code = U Ketones) Trace U Blood (test code = U Blood) Negative U pH (test code = U pH) 6.5000 5.0000-8.0000 U Protein (test code = U Protein) 30 U Nitrite (test code = U Nitrite) Negative U Leuk Esterase (test code = U Leuk Esterase) Negative [id number] 09:19:00 Test Item Value Reference Range Comments WBC (test code = WBC) 6.8000 4.0000-10.0000 Lymphocytes % (test code = Lymphocytes %) 39.4000 % 22.400 0-43.6000 MID% (test code = MID%) 6.5000 % 1.2000-11 Neutrophils % (test code = Neutrophils %) 54.1000 % 48.900 0-69.9000 Lymphocytes (test code = Lymphocytes) 2.7000 1.2000-3.2 000 MID (test code = MID) 0.4000 0.1000-1.1000 Neutrophils (test code = Neutrophils) 3.7000 1.5000-6.7 000 RBC (test code = RBC) 4.7000 3.7000-4.9000 HGB (test code = HGB) 11.5000 g/dL 11.2000-18.0000 HCT (test code = HCT) 35.6000 % 34.0000-44.0000 MCV (test code = MCV) 75.7000 fL 80.0000-94.0000 MCH (test code = MCH) 24.4000 pg 27.0000-34.0000 MCHC (test code = MCHC) 32.3000 g/dL 31.5000-36.0000 RDW (test code = RDW) 19.7000 11.0000-18.0000 PLT (test code = PLT) 410.0000 140.0000-440.0000 MPV (test code = MPV) 7.3000 fL 6.8000-10.6000 [id number] 09:19:00 Test Item Value Reference Range Comments Creatinine (test code = Creatinine) 0.7000 mg/dL 0.5000-1.200 0 Cr Clearance (Est) (test code = Cr 51.4100 75.0000-115.0 000 Clearance (Est)) Glucose (test code = Glucose) 115.0000 mg/dL 70.0000-118.0000 BUN (test code = BUN) 16.0000 mg/dL 7.0000-22.0000 Sodium (test code = Sodium) 137.0000 mmol/L 128.0000-145.0000 Potassium (test code = Potassium) 2.7000 mmol/L 3.6000-5.1000 Chloride (test code = Chloride) 102.0000 mmol/L 96.0000-108.0000 CO2 (test code = CO2) 29.0000 mmol/L 18.0000-33.0000 Calcium (test code = Calcium) 8.6400 mg/dL 8.0000-10.3000 Alkaline Phosphatase (test code = Alkaline 63.0000 42.00 00-141.0000 Phosphatase) ALT (SGPT) (test code = ALT (SGPT)) 10.0000 10.0000-47.0 000 AST (SGOT) (test code = AST (SGOT)) 18.0000 11.0000-37.0 000 Bilirubin, Total (test code = Bilirubin, 0.4000 mg/dL 0.0000- 1.6000 Total) Albumin (test code = Albumin) 3.7000 g/dL 3.5000-5.5000 Protein, Total (test code = Protein, 6.2000 g/dL 6.4000-8.10 00 Total) eGFR -Nigerien (test code = eGFR 103.0000 60.0000- 200.0000 -Nigerien) eGFR Nba-Txhxqgz-Dmwdkshh (test code = 85.0000 60.0000-2 00.0000 eGFR Xnc-Sxessic-Yohxvlqs) Corrected [id number] 14:40:00 Test Item Value Reference Range Comments Corrected Result (test code = Corrected Result) Performed: 04/05/2019 Reported: 05/20/2019 05:35 Comment [id number] 11:04:00 Test Item Value Reference Range Comments WBC (test code = WBC) 9.2000 4.0000-10.0000 Lymphocytes % (test code = Lymphocytes %) 32.6000 % 22.400 0-43.6000 MID% (test code = MID%) 6.2000 % 1.2000-11.2000 Neutrophils % (test code = Neutrophils %) 61.2000 % 48.900 0-69.9000 Lymphocytes (test code = Lymphocytes) 3.0000 1.2000-3.2 000 MID (test code = MID) 0.6000 0.1000-1.1000 Neutrophils (test code = Neutrophils) 5.6000 1.5000-6.7 000 RBC (test code = RBC) 4.7900 3.7000-4.9000 HGB (test code = HGB) 11.8000 g/dL 11.2000-18.0000 HCT (test code = HCT) 37.0000 % 34.0000-44.0000 MCV (test code = MCV) 77.2000 fL 80.0000-94.0000 MCH (test code = MCH) 24.8000 pg 27.0000-34.0000 MCHC (test code = MCHC) 32.1000 g/dL 31.5000-36.0000 RDW (test code = RDW) 19.4000 11.0000-18.0000 PLT (test code = PLT) 430.0000 140.0000-440.0000 MPV (test code = MPV) 7.3000 fL 6.8000-10.6000 [id number] 08:49:00 Test Item Value Reference Range Comments WBC (test code = WBC) 9.8000 4.0000-10.0000 Lymphocytes % (test code = Lymphocytes %) 24.2000 % 22.400 0-43.6000 MID% (test code = MID%) 5.8000 % 1.2000-11.2000 Neutrophils % (test code = Neutrophils %) 70.0000 % 48.900 0-69.9000 Lymphocytes (test code = Lymphocytes) 2.3000 1.2000-3.2 000 MID (test code = MID) 0.7000 0.1000-1.1000 Neutrophils (test code = Neutrophils) 6.8000 1.5000-6.7 000 RBC (test code = RBC) 4.8400 3.7000-4.9000 HGB (test code = HGB) 11.9000 g/dL 11.2000-18.0000 HCT (test code = HCT) 37.4000 % 34.0000-44.0000 MCV (test code = MCV) 77.2000 fL 80.0000-94.0000 MCH (test code = MCH) 24.6000 pg 27.0000-34.0000 MCHC (test code = MCHC) 31.9000 g/dL 31.5000-36.0000 RDW (test code = RDW) 18.5000 11.0000-18.0000 PLT (test code = PLT) 536.0000 140.0000-440.0000 MPV (test code = MPV) 7.6000 fL 6.8000-10.6000 [id number] 08:49:00 Test Item Value Reference Range Comments Creatinine (test code = Creatinine) 0.7000 mg/dL 0.5000-1.200 0 Cr Clearance (Est) (test code = Cr 53.2400 75.0000-115.0 000 Clearance (Est)) Glucose (test code = Glucose) 117.0000 mg/dL 70.0000-118.0000 BUN (test code = BUN) 15.0000 mg/dL 7.0000-22.0000 Sodium (test code = Sodium) 138.0000 mmol/L 128.0000-145.0000 Potassium (test code = Potassium) 3.4000 mmol/L 3.6000-5.1000 Chloride (test code = Chloride) 104.0000 mmol/L 96.0000-108.0000 CO2 (test code = CO2) 28.0000 mmol/L 18.0000-33.0000 Calcium (test code = Calcium) 9.0600 mg/dL 8.0000-10.3000 Alkaline Phosphatase (test code = Alkaline 67.0000 42.00 00-141.0000 Phosphatase) ALT (SGPT) (test code = ALT (SGPT)) 12.0000 10.0000-47.0 000 AST (SGOT) (test code = AST (SGOT)) 17.0000 11.0000-37.0 000 Bilirubin, Total (test code = Bilirubin, 0.3000 mg/dL 0.0000- 1.6000 Total) Albumin (test code = Albumin) 3.9000 g/dL 3.5000-5.5000 Protein, Total (test code = Protein, 6.4000 g/dL 6.4000-8.10 00 Total) eGFR -Nigerien (test code = eGFR 103.0000 60.0000- 200.0000 -Nigerien) eGFR Oyc-Bdguuga-Qazgvotm (test code = 85.0000 60.0000-2 00.0000 eGFR Tbn-Faubxtj-Thhfcsui) [id number] 11:42:00 Test Item Value Reference Range Comments Creatinine (test code = Creatinine) 0.7700 mg/dL 0.5700-1.000 0 Cr Clearance (Est) (test code = Cr 48.9600 75.0000-115.0 000 Clearance (Est)) Glucose (test code = Glucose) 95.0000 mg/dL 65.0000-99.0000 BUN (test code = BUN) 15.0000 mg/dL 8.0000-27.0000 eGFR Dkd-Mdnpgfb-Gvdrhbgc (test code = 84.0000 eGFR Nqg-Tbnbmzm-Cwiazxuf) eGFR -Nigerien (test code = eGFR 97.0000 -Nigerien) BUN/Creat Ratio (test code = BUN/Creat 19.0000 12.0000-2 8.0000 Ratio) Sodium (test code = Sodium) 138.0000 mmol/L 134.0000-144.0000 Potassium (test code = Potassium) 4.5000 mmol/L 3.5000-5.2000 Chloride (test code = Chloride) 100.0000 mmol/L 96.0000-106.0000 CO2 (test code = CO2) 20.0000 mmol/L 20.0000-29.0000 Calcium (test code = Calcium) 8.9000 mg/dL 8.7000-10.3000 Protein, Total (test code = Protein, 6.0000 g/dL 6.0000-8.50 00 Total) Albumin (test code = Albumin) 3.2000 g/dL 3.6000-4.8000 Globulin (test code = Globulin) 2.8000 g/dL 1.5000-4.5000 A/G Ratio (test code = A/G Ratio) 1.1000 1.2000-2.2000 Bilirubin, Total (test code = Bilirubin, 0.2000 mg/dL 0.0000- 1.2000 Total) Alkaline Phosphatase (test code = Alkaline 88.0000 39.00 00-117.0000 Phosphatase) AST (SGOT) (test code = AST (SGOT)) 38.0000 0.0000-40.00 00 ALT (SGPT) (test code = ALT (SGPT)) 20.0000 0.0000-32.00 00 [id number] 11:42:00 Test Item Value Reference Range Comments CEA (test code = CEA) 11.1000 ng/mL 0.0000-4.7000 [id number] 15:59:00 Test Item Value Reference Range Comments WBC (test code = WBC) 11.3000 4.0000-10.0000 Lymphocytes % (test code = Lymphocytes %) 31.6000 % 22.400 0-43.6000 MID% (test code = MID%) 6.5000 % 1.2000-11.2000 Neutrophils % (test code = Neutrophils %) 61.9000 % 48.900 0-69.9000 Lymphocytes (test code = Lymphocytes) 3.5000 1.2000-3.2 000 MID (test code = MID) 0.8000 0.1000-1.1000 Neutrophils (test code = Neutrophils) 7.0000 1.5000-6.7 000 RBC (test code = RBC) 4.4800 3.7000-4.9000 HGB (test code = HGB) 10.8000 g/dL 11.2000-18.0000 HCT (test code = HCT) 35.6000 % 34.0000-44.0000 MCV (test code = MCV) 79.3000 fL 80.0000-94.0000 MCH (test code = MCH) 24.1999 pg 27.0000-34.0000 MCHC (test code = MCHC) 30.5000 g/dL 31.5000-36.0000 RDW (test code = RDW) 19.1999 11.0000-18.0000 PLT (test code = PLT) 564.0000 140.0000-440.0000 MPV (test code = MPV) 7.6000 fL 6.8000-10.6000 [id number] 09:12:45 Test Item Value Reference Range Comments Glucose (test code = Glucose) 105.0000 mg/dL 60.0000-125.0000 BUN (test code = BUN) 18.0000 mg/dL 5.0000-26.0000 Creatinine (test code = Creatinine) 0.6700 mg/dL 0.5000-1.500 0 Cr Clearance (Est) (test code = Cr 65.6700 75.0000-115.0 000 Clearance (Est)) Sodium (test code = Sodium) 137.0000 mmol/L 135.0000-148.0000 Potassium (test code = Potassium) 3.1000 mmol/L 3.5000-5.5000 Chloride (test code = Chloride) 99.0000 mmol/L 96.0000-109.0000 CO2 (test code = CO2) 28.0000 mmol/L 21.0000-32.0000 Calcium (test code = Calcium) 9.4000 mg/dL 8.5000-10.6000 Protein, Total (test code = Protein, 6.8000 g/dL 6.0000-8.50 00 Total) Albumin (test code = Albumin) 2.3000 g/dL 3.6000-4.8000 Bilirubin, Total (test code = Bilirubin, 0.3000 mg/dL 0.1000- 1.2000 Total) Alkaline Phosphatase (test code = Alkaline 122.0000 40.00 00-150.0000 Phosphatase) AST (SGOT) (test code = AST (SGOT)) 25.0000 0.0000-45.00 00 ALT (SGPT) (test code = ALT (SGPT)) 23.0000 0.0000-50.00 00 [id number] 15:44:00 Test Item Value Reference Range Comments CEA (test code = CEA) 13.1000 ng/mL 0.0000-4.7000 CA 19-9 (test code = CA 19-9) 74.0000 0.0000-35.0000 CA 125 (test code = CA 125) 15.7000 0.0000-38.1000 Mtz-[id number] 15:44:00 Test Item Value Reference Range Comments Pre-Albumin (test code = Pre-Albumin) 28.0000 mg/dL 10.0000-36 .0000 [id number] 14:26:00 Test Item Value Reference Range Comments WBC (test code = WBC) 8.2000 4.0000-10.0000 Lymphocytes % (test code = Lymphocytes %) 24.5000 % 22.400 0-43.6000 MID% (test code = MID%) 6.5000 % 1.2000-11.2000 Neutrophils % (test code = Neutrophils %) 69.0000 % 48.900 0-69.9000 Lymphocytes (test code = Lymphocytes) 2.0000 1.2000-3.2 000 MID (test code = MID) 0.6000 0.1000-1.1000 Neutrophils (test code = Neutrophils) 5.6000 1.5000-6.7 000 RBC (test code = RBC) 5.1100 3.7000-4.9000 HGB (test code = HGB) 13.7000 g/dL 11.2000-18.0000 HCT (test code = HCT) 43.4000 % 34.0000-44.0000 MCV (test code = MCV) 85.0000 fL 80.0000-94.0000 MCH (test code = MCH) 26.8000 pg 27.0000-34.0000 MCHC (test code = MCHC) 31.5000 g/dL 31.5000-36.0000 RDW (test code = RDW) 18.0000 11.0000-18.0000 PLT (test code = PLT) 269.0000 140.0000-440.0000 MPV (test code = MPV) 7.7000 fL 6.8000-10.6000 [id number] 14:06:00 Test Item Value Reference Range Comments Creatinine (test code = Creatinine) 0.7000 mg/dL 0.5000-1.200 0 Cr Clearance (Est) (test code = Cr 62.8500 75.0000-115.0 000 Clearance (Est)) Glucose (test code = Glucose) 104.0000 mg/dL 70.0000-118.0000 BUN (test code = BUN) 12.0000 mg/dL 7.0000-22.0000 Sodium (test code = Sodium) 136.0000 mmol/L 128.0000-145.0000 Potassium (test code = Potassium) 3.0000 mmol/L 3.6000-5.1000 Chloride (test code = Chloride) 99.0000 mmol/L 96.0000-108.0000 CO2 (test code = CO2) 37.0000 mmol/L 18.0000-33.0000 Calcium (test code = Calcium) 9.5400 mg/dL 8.0000-10.3000 Alkaline Phosphatase (test code = Alkaline 77.0000 42.00 00-141.0000 Phosphatase) ALT (SGPT) (test code = ALT (SGPT)) 19.0000 10.0000-47.0 000 AST (SGOT) (test code = AST (SGOT)) 19.0000 11.0000-37.0 000 Bilirubin, Total (test code = Bilirubin, 0.5000 mg/dL 0.0000- 1.6000 Total) Albumin (test code = Albumin) 4.4000 g/dL 3.5000-5.5000 Protein, Total (test code = Protein, 7.2000 g/dL 6.4000-8.10 00 Total) eGFR -Nigerien (test code = eGFR 104.0000 60.0000- 200.0000 -Nigerien) eGFR Jqg-Dhxtqvv-Hjtkjkvz (test code = 86.0000 60.0000-2 00.0000 eGFR Oml-Lcaltcv-Tejsaxxg) T4, [id number] 15:30:00 Test Item Value Reference Range Comments T4, Free (test code = T4, Free) 1.4100 ng/dL 0.8200-1.7700 TSH (test code = TSH) 1.0600 0.4500-4.5000 T3, Free (test code = T3, Free) 3.0000 pg/mL 2.0000-4.4000 [id number] 15:30:00 Test Item Value Reference Range Comments CEA (test code = CEA) 15.4000 ng/mL 0.0000-4.7000 CA 125 (test code = CA 125) 18.0000 0.0000-38.1000 Written [id number] 15:30:00 Test Item Value Reference Range Comments Written Authorization (test Comment Written Authorization code = Written Authorization) Received. Authorization received from DR MATILDA SARAH 11-28-2018 Logged by Geovanni Bustillo [id number] 14:37:00 Test Item Value Reference Range Comments WBC (test code = WBC) 8.9000 4.0000-10.0000 Lymphocytes % (test code = Lymphocytes %) 24.3000 % 22.400 0-43.6000 MID% (test code = MID%) 6.2000 % 1.2000-11.2000 Neutrophils % (test code = Neutrophils %) 69.5000 % 48.900 0-69.9000 Lymphocytes (test code = Lymphocytes) 2.1000 1.2000-3.2 000 MID (test code = MID) 0.6000 0.1000-1.1000 Neutrophils (test code = Neutrophils) 6.2000 1.5000-6.7 000 RBC (test code = RBC) 4.7700 3.7000-4.9000 HGB (test code = HGB) 13.7000 g/dL 11.2000-18.0000 HCT (test code = HCT) 39.8000 % 34.0000-44.0000 MCV (test code = MCV) 83.4000 fL 80.0000-94.0000 MCH (test code = MCH) 28.7000 pg 27.0000-34.0000 MCHC (test code = MCHC) 34.3000 g/dL 31.5000-36.0000 RDW (test code = RDW) 18.7000 11.0000-18.0000 PLT (test code = PLT) 163.0000 140.0000-440.0000 MPV (test code = MPV) 8.2000 fL 6.8000-10.6000 [id number] 14:37:00 Test Item Value Reference Range Comments Creatinine (test code = Creatinine) 0.8000 mg/dL 0.5000-1.200 0 Cr Clearance (Est) (test code = Cr 55.0000 75.0000-115.0 000 Clearance (Est)) Glucose (test code = Glucose) 106.0000 mg/dL 70.0000-118.0000 BUN (test code = BUN) 14.0000 mg/dL 7.0000-22.0000 Sodium (test code = Sodium) 138.0000 mmol/L 128.0000-145.0000 Potassium (test code = Potassium) 3.1000 mmol/L 3.6000-5.1000 Chloride (test code = Chloride) 102.0000 mmol/L 96.0000-108.0000 CO2 (test code = CO2) 34.0000 mmol/L 18.0000-33.0000 Calcium (test code = Calcium) 9.6800 mg/dL 8.0000-10.3000 Alkaline Phosphatase (test code = Alkaline 83.0000 42.00 00-141.0000 Phosphatase) ALT (SGPT) (test code = ALT (SGPT)) 29.0000 10.0000-47.0 000 AST (SGOT) (test code = AST (SGOT)) 31.0000 11.0000-37.0 000 Bilirubin, Total (test code = Bilirubin, 0.4000 mg/dL 0.0000- 1.6000 Total) Albumin (test code = Albumin) 4.5000 g/dL 3.5000-5.5000 Protein, Total (test code = Protein, 7.5000 g/dL 6.4000-8.10 00 Total) eGFR -Nigerien (test code = eGFR 89.0000 60.0000- 200.0000 -Nigerien) eGFR Ozs-Mjwstux-Slockntx (test code = 73.0000 60.0000-2 00.0000 eGFR Jzj-Xoofuki-Jkehmgxw) [id number] 08:55:00 Test Item Value Reference Range Comments Magnesium (test code = Magnesium) 1.8000 mg/dL 1.6000-2.3000 [id number] 08:54:00 Test Item Value Reference Range Comments WBC (test code = WBC) 3.6000 4.0000-10.0000 Lymphocytes % (test code = Lymphocytes %) 61.0000 % 22.400 0-43.6000 MID% (test code = MID%) 8.0000 % 1.2000-11.2000 Neutrophils % (test code = Neutrophils %) 31.0000 % 48.900 0-69.9000 Lymphocytes (test code = Lymphocytes) 2.2000 1.2000-3.2 000 MID (test code = MID) 0.3000 0.1000-1.1000 Neutrophils (test code = Neutrophils) 1.1000 1.5000-6.7 000 RBC (test code = RBC) 4.9200 3.7000-4.9000 HGB (test code = HGB) 13.3000 g/dL 11.2000-18.0000 HCT (test code = HCT) 40.2000 % 34.0000-44.0000 MCV (test code = MCV) 81.7000 fL 80.0000-94.0000 MCH (test code = MCH) 27.0000 pg 27.0000-34.0000 MCHC (test code = MCHC) 33.0000 g/dL 31.5000-36.0000 RDW (test code = RDW) 19.4000 11.0000-18.0000 PLT (test code = PLT) 225.0000 140.0000-440.0000 MPV (test code = MPV) 7.7000 fL 6.8000-10.6000 U Color (test code = U Color) Yellow U Urobilinogen (test code = U Urobilinogen) 0.2 U Specific Holden (test code = U Specific 1.0150 Holden) U Appearance (test code = U Appearance) Clear U Glucose (test code = U Glucose) Negative U Bilirubin (test code = U Bilirubin) Negative U Ketones (test code = U Ketones) Negative U Blood (test code = U Blood) Negative U pH (test code = U pH) 7.0000 5.0000-8.0000 U Protein (test code = U Protein) Negative U Nitrite (test code = U Nitrite) Negative U Leuk Esterase (test code = U Leuk Esterase) Negative [id number] 08:54:00 Test Item Value Reference Range Comments Creatinine (test code = Creatinine) 0.5000 mg/dL 0.5000-1.200 0 Cr Clearance (Est) (test code = Cr 91.6800 75.0000-115.0 000 Clearance (Est)) Glucose (test code = Glucose) 107.0000 mg/dL 70.0000-118.0000 BUN (test code = BUN) 14.0000 mg/dL 7.0000-22.0000 Sodium (test code = Sodium) 136.0000 mmol/L 128.0000-145.0000 Potassium (test code = Potassium) 3.2000 mmol/L 3.6000-5.1000 Chloride (test code = Chloride) 102.0000 mmol/L 96.0000-108.0000 CO2 (test code = CO2) 29.0000 mmol/L 18.0000-33.0000 Calcium (test code = Calcium) 9.1800 mg/dL 8.0000-10.3000 Alkaline Phosphatase (test code = Alkaline 73.0000 42.00 00-141.0000 Phosphatase) ALT (SGPT) (test code = ALT (SGPT)) 14.0000 10.0000-47.0 000 AST (SGOT) (test code = AST (SGOT)) 18.0000 11.0000-37.0 000 Bilirubin, Total (test code = Bilirubin, 0.4000 mg/dL 0.0000- 1.6000 Total) Albumin (test code = Albumin) 4.3000 g/dL 3.5000-5.5000 Protein, Total (test code = Protein, 6.4000 g/dL 6.4000-8.10 00 Total) eGFR -Nigerien (test code = eGFR 153.0000 60.0000- 200.0000 -Nigerien) eGFR Rzy-Ncyryxa-Odlmnzzz (test code = 126.0000 60.0000-2 00.0000 eGFR Apv-Wepuhwk-[place]adipago) [id number] 13:26:00 Test Item Value Reference Range Comments WBC (test code = WBC) 7.6000 4.0000-10.0000 Lymphocytes % (test code = Lymphocytes %) 24.0000 % 22.400 0-43.6000 MID% (test code = MID%) 5.1000 % 1.2000-11.2000 Neutrophils % (test code = Neutrophils %) 70.9000 % 48.900 0-69.9000 Lymphocytes (test code = Lymphocytes) 1.8000 1.2000-3.2 000 MID (test code = MID) 0.4000 0.1000-1.1000 Neutrophils (test code = Neutrophils) 5.4000 1.5000-6.7 000 RBC (test code = RBC) 4.7100 3.7000-4.9000 HGB (test code = HGB) 12.9000 g/dL 11.2000-18.0000 HCT (test code = HCT) 39.5000 % 34.0000-44.0000 MCV (test code = MCV) 83.8000 fL 80.0000-94.0000 MCH (test code = MCH) 27.4000 pg 27.0000-34.0000 MCHC (test code = MCHC) 32.7000 g/dL 31.5000-36.0000 RDW (test code = RDW) 19.0000 11.0000-18.0000 PLT (test code = PLT) 137.0000 140.0000-440.0000 MPV (test code = MPV) 8.3000 fL 6.8000-10.6000 U [id number] 08:44:00 Test Item Value Reference Range Comments U Color (test code = U Color) Yellow U Urobilinogen (test code = U Urobilinogen) 0.2 U Specific Holden (test code = U Specific Holden) 1.0150 U Appearance (test code = U Appearance) Clear U Glucose (test code = U Glucose) Negative U Bilirubin (test code = U Bilirubin) Negative U Ketones (test code = U Ketones) Negative U Blood (test code = U Blood) Negative U pH (test code = U pH) 7.0000 5.0000-8.0000 U Protein (test code = U Protein) Negative U Nitrite (test code = U Nitrite) Negative U Leuk Esterase (test code = U Leuk Esterase) Trace [id number] 08:43:00 Test Item Value Reference Range Comments Creatinine (test code = Creatinine) 0.8000 mg/dL 0.5000-1.200 0 Cr Clearance (Est) (test code = Cr 57.6200 75.0000-115.0 000 Clearance (Est)) Glucose (test code = Glucose) 110.0000 mg/dL 70.0000-118.0000 BUN (test code = BUN) 14.0000 mg/dL 7.0000-22.0000 Sodium (test code = Sodium) 136.0000 mmol/L 128.0000-145.0000 Potassium (test code = Potassium) 3.5000 mmol/L 3.6000-5.1000 Chloride (test code = Chloride) 103.0000 mmol/L 96.0000-108.0000 CO2 (test code = CO2) 27.0000 mmol/L 18.0000-33.0000 Calcium (test code = Calcium) 8.9300 mg/dL 8.0000-10.3000 Alkaline Phosphatase (test code = Alkaline 74.0000 42.00 00-141.0000 Phosphatase) ALT (SGPT) (test code = ALT (SGPT)) 15.0000 10.0000-47.0 000 AST (SGOT) (test code = AST (SGOT)) 18.0000 11.0000-37.0 000 Bilirubin, Total (test code = Bilirubin, 0.4000 mg/dL 0.0000- 1.6000 Total) Albumin (test code = Albumin) 4.3000 g/dL 3.5000-5.5000 Protein, Total (test code = Protein, 6.4000 g/dL 6.4000-8.10 00 Total) eGFR -Nigerien (test code = eGFR 89.0000 60.0000- 200.0000 -Nigerien) eGFR Nxa-Qpsyrlu-Njmizjqa (test code = 73.0000 60.0000-2 00.0000 eGFR Qex-Ahpkfjv-Vbudabur) Magnesium (test code = Magnesium) 1.8000 mg/dL 1.6000-2.3000 [id number] 08:43:00 Test Item Value Reference Range Comments WBC (test code = WBC) 4.8000 4.0000-10.0000 Lymphocytes % (test code = Lymphocytes %) 58.5000 % 22.400 0-43.6000 MID% (test code = MID%) 9.5000 % 1.2000-11.2000 Neutrophils % (test code = Neutrophils %) 32.0000 % 48.900 0-69.9000 Lymphocytes (test code = Lymphocytes) 2.8000 1.2000-3.2 000 MID (test code = MID) 0.5000 0.1000-1.1000 Neutrophils (test code = Neutrophils) 1.5000 1.5000-6.7 000 RBC (test code = RBC) 5.2900 3.7000-4.9000 HGB (test code = HGB) 13.4000 g/dL 11.2000-18.0000 HCT (test code = HCT) 42.9000 % 34.0000-44.0000 MCV (test code = MCV) 81.1000 fL 80.0000-94.0000 MCH (test code = MCH) 25.4000 pg 27.0000-34.0000 MCHC (test code = MCHC) 31.3000 g/dL 31.5000-36.0000 RDW (test code = RDW) 19.1000 11.0000-18.0000 PLT (test code = PLT) 309.0000 140.0000-440.0000 MPV (test code = MPV) 7.1000 fL 6.8000-10.6000 [id number] 12:52:00 Test Item Value Reference Range Comments CEA (test code = CEA) 54.8000 ng/mL 0.0000-4.7000 CA 125 (test code = CA 125) 28.0000 0.0000-38.1000 U [id number] 09:17:00 Test Item Value Reference Range Comments U Color (test code = U Color) Yellow U Urobilinogen (test code = U Urobilinogen) 0.2 U Specific Holden (test code = U Specific 1.0150 Holden) U Appearance (test code = U Appearance) Sl Cloudy U Glucose (test code = U Glucose) Negative U Bilirubin (test code = U Bilirubin) Negative U Ketones (test code = U Ketones) Negative U Blood (test code = U Blood) Negative U pH (test code = U pH) 7.0000 5.0000-8.0000 U Protein (test code = U Protein) Negative U Nitrite (test code = U Nitrite) Negative U Leuk Esterase (test code = U Leuk Esterase) Negative [id number] 09:17:00 Test Item Value Reference Range Comments Creatinine (test code = Creatinine) 0.7000 mg/dL 0.5000-1.200 0 Cr Clearance (Est) (test code = Cr 64.8700 75.0000-115.0 000 Clearance (Est)) Glucose (test code = Glucose) 114.0000 mg/dL 70.0000-118.0000 BUN (test code = BUN) 12.0000 mg/dL 7.0000-22.0000 Sodium (test code = Sodium) 137.0000 mmol/L 128.0000-145.0000 Potassium (test code = Potassium) 2.8000 mmol/L 3.6000-5.1000 Chloride (test code = Chloride) 100.0000 mmol/L 96.0000-108.0000 CO2 (test code = CO2) 29.0000 mmol/L 18.0000-33.0000 Calcium (test code = Calcium) 9.7700 mg/dL 8.0000-10.3000 Alkaline Phosphatase (test code = Alkaline 75.0000 42.00 00-141.0000 Phosphatase) ALT (SGPT) (test code = ALT (SGPT)) 10.0000 10.0000-47.0 000 AST (SGOT) (test code = AST (SGOT)) 14.0000 11.0000-37.0 000 Bilirubin, Total (test code = Bilirubin, 0.5000 mg/dL 0.0000- 1.6000 Total) Albumin (test code = Albumin) 4.3000 g/dL 3.5000-5.5000 Protein, Total (test code = Protein, 6.3000 g/dL 6.4000-8.10 00 Total) eGFR -Nigerien (test code = eGFR 104.0000 60.0000- 200.0000 -Nigerien) eGFR Oqx-Wkayczx-Olmmzlsi (test code = 86.0000 60.0000-2 00.0000 eGFR Fry-Nemvfyq-Llrtcoxk) [id number] 09:16:00 Test Item Value Reference Range Comments WBC (test code = WBC) 2.6000 4.0000-10.0000 Lymphocytes % (test code = Lymphocytes %) 67.5000 % 22.400 0-43.6000 MID% (test code = MID%) 6.3000 % 1.2000-11.1999 Neutrophils % (test code = Neutrophils %) 26.2000 % 48.900 0-69.9000 Lymphocytes (test code = Lymphocytes) 1.8000 1.2000-3.2 000 MID (test code = MID) 0.1000 0.1000-1.1000 Neutrophils (test code = Neutrophils) 0.7000 1.5000-6.7 000 RBC (test code = RBC) 4.6900 3.7000-4.9000 HGB (test code = HGB) 12.8000 g/dL 11.2000-18.0000 HCT (test code = HCT) 37.8000 % 34.0000-44.0000 MCV (test code = MCV) 80.5000 fL 80.0000-94.0000 MCH (test code = MCH) 27.4000 pg 27.0000-34.0000 MCHC (test code = MCHC) 34.1000 g/dL 31.5000-36.0000 RDW (test code = RDW) 18.9000 11.0000-18.0000 PLT (test code = PLT) 191.0000 140.0000-440.0000 MPV (test code = MPV) 6.8000 fL 6.8000-10.6000 [id number] 13:08:00 Test Item Value Reference Range Comments WBC (test code = WBC) 5.1000 4.0000-10.0000 Lymphocytes % (test code = Lymphocytes %) 49.4000 % 22.400 0-43.6000 MID% (test code = MID%) 8.1000 % 1.1999-11.1999 Neutrophils % (test code = Neutrophils %) 42.5000 % 48.900 0-69.9000 Lymphocytes (test code = Lymphocytes) 2.5000 1.2000-3.2 000 MID (test code = MID) 0.5000 0.1000-1.1000 Neutrophils (test code = Neutrophils) 2.1000 1.5000-6.7 000 RBC (test code = RBC) 5.0100 3.7000-4.9000 HGB (test code = HGB) 13.2000 g/dL 11.2000-18.0000 HCT (test code = HCT) 39.9000 % 34.0000-44.0000 MCV (test code = MCV) 79.7000 fL 80.0000-94.0000 MCH (test code = MCH) 26.5000 pg 27.0000-34.0000 MCHC (test code = MCHC) 33.2000 g/dL 31.5000-36.0000 RDW (test code = RDW) 17.7000 11.0000-18.0000 PLT (test code = PLT) 177.0000 140.0000-440.0000 MPV (test code = MPV) 7.9000 fL 6.8000-10.6000 [id number] 11:56:00 Test Item Value Reference Range Comments CEA (test code = CEA) 102.0000 ng/mL 0.0000-4.7000 CA 125 (test code = CA 125) 28.2000 0.0000-38.1000 U [id number] 08:50:00 Test Item Value Reference Range Comments U Color (test code = U Color) Yellow U Urobilinogen (test code = U Urobilinogen) 0.2 U Specific Holden (test code = U Specific 1.0200 Holden) U Appearance (test code = U Appearance) Clear U Glucose (test code = U Glucose) Negative U Bilirubin (test code = U Bilirubin) Negative U Ketones (test code = U Ketones) Negative U Blood (test code = U Blood) Trace-lyse U pH (test code = U pH) 7.0000 5.0000-8.0000 U Protein (test code = U Protein) Negative U Nitrite (test code = U Nitrite) Negative U Leuk Esterase (test code = U Leuk Esterase) Small [id number] 08:49:00 Test Item Value Reference Range Comments Magnesium (test code = Magnesium) 1.8000 mg/dL 1.6000-2.3000 [id number] 08:48:00 Test Item Value Reference Range Comments WBC (test code = WBC) 3.4000 4.0000-10.0000 Lymphocytes % (test code = Lymphocytes %) 51.6000 % 22.400 0-43.6000 MID% (test code = MID%) 9.8000 % 1.2000-11.2000 Neutrophils % (test code = Neutrophils %) 38.6000 % 48.900 0-69.9000 Lymphocytes (test code = Lymphocytes) 1.7000 1.2000-3.2 000 MID (test code = MID) 0.4000 0.1000-1.1000 Neutrophils (test code = Neutrophils) 1.3000 1.5000-6.7 000 RBC (test code = RBC) 4.8600 3.7000-4.9000 HGB (test code = HGB) 13.0000 g/dL 11.2000-18.0000 HCT (test code = HCT) 39.2000 % 34.0000-44.0000 MCV (test code = MCV) 80.6000 fL 80.0000-94.0000 MCH (test code = MCH) 26.8000 pg 27.0000-34.0000 MCHC (test code = MCHC) 33.3000 g/dL 31.5000-36.0000 RDW (test code = RDW) 18.0000 11.0000-18.0000 PLT (test code = PLT) 185.0000 140.0000-440.0000 MPV (test code = MPV) 7.7000 fL 6.8000-10.6000 [id number] 08:48:00 Test Item Value Reference Range Comments Creatinine (test code = Creatinine) 0.8000 mg/dL 0.5000-1.200 0 Cr Clearance (Est) (test code = Cr 57.6200 75.0000-115.0 000 Clearance (Est)) Glucose (test code = Glucose) 118.0000 mg/dL 70.0000-118.0000 BUN (test code = BUN) 14.0000 mg/dL 7.0000-22.0000 Sodium (test code = Sodium) 138.0000 mmol/L 128.0000-145.0000 Potassium (test code = Potassium) 3.5000 mmol/L 3.6000-5.1000 Chloride (test code = Chloride) 100.0000 mmol/L 96.0000-108.0000 CO2 (test code = CO2) 28.0000 mmol/L 18.0000-33.0000 Calcium (test code = Calcium) 9.8400 mg/dL 8.0000-10.3000 Alkaline Phosphatase (test code = Alkaline 83.0000 42.00 00-141.0000 Phosphatase) ALT (SGPT) (test code = ALT (SGPT)) 13.0000 10.0000-47.0 000 AST (SGOT) (test code = AST (SGOT)) 17.0000 11.0000-37.0 000 Bilirubin, Total (test code = Bilirubin, 0.6000 mg/dL 0.0000- 1.6000 Total) Albumin (test code = Albumin) 4.4000 g/dL 3.5000-5.5000 Protein, Total (test code = Protein, 6.5000 g/dL 6.4000-8.10 00 Total) eGFR -Nigerien (test code = eGFR 89.0000 60.0000- 200.0000 -Nigerien) eGFR Rwz-Iyejysx-Osmjcclb (test code = 73.0000 60.0000-2 00.0000 eGFR Mzn-Refkakp-Rzrxqbju) [id number] 12:20:00 Test Item Value Reference Range Comments WBC (test code = WBC) 6.3000 4.0000-10.0000 Lymphocytes % (test code = Lymphocytes %) 32.5000 % 22.400 0-43.6000 MID% (test code = MID%) 5.0000 % 1.2000-11.2000 Neutrophils % (test code = Neutrophils %) 62.5000 % 48.900 0-69.9000 Lymphocytes (test code = Lymphocytes) 2.0000 1.2000-3.2 000 MID (test code = MID) 0.4000 0.1000-1.1000 Neutrophils (test code = Neutrophils) 3.9000 1.5000-6.7 000 RBC (test code = RBC) 4.5000 3.7000-4.9000 HGB (test code = HGB) 12.1000 g/dL 11.2000-18.0000 HCT (test code = HCT) 36.8000 % 34.0000-44.0000 MCV (test code = MCV) 81.6000 fL 80.0000-94.0000 MCH (test code = MCH) 26.9000 pg 27.0000-34.0000 MCHC (test code = MCHC) 33.0000 g/dL 31.5000-36.0000 RDW (test code = RDW) 16.7000 11.0000-18.0000 PLT (test code = PLT) 180.0000 140.0000-440.0000 MPV (test code = MPV) 8.2000 fL 6.8000-10.6000 [id number] 08:56:00 Test Item Value Reference Range Comments WBC (test code = WBC) 4.5000 4.0000-10.0000 Lymphocytes % (test code = Lymphocytes %) 38.8000 % 22.400 0-43.6000 MID% (test code = MID%) 9.2000 % 1.2000-11.2000 Neutrophils % (test code = Neutrophils %) 52.0000 % 48.900 0-69.9000 Lymphocytes (test code = Lymphocytes) 1.7000 1.2000-3.2 000 MID (test code = MID) 0.5000 0.1000-1.1000 Neutrophils (test code = Neutrophils) 2.3000 1.5000-6.7 000 RBC (test code = RBC) 4.4900 3.7000-4.9000 HGB (test code = HGB) 12.0000 g/dL 11.2000-18.0000 HCT (test code = HCT) 35.9000 % 34.0000-44.0000 MCV (test code = MCV) 79.9000 fL 80.0000-94.0000 MCH (test code = MCH) 26.7000 pg 27.0000-34.0000 MCHC (test code = MCHC) 33.4000 g/dL 31.5000-36.0000 RDW (test code = RDW) 16.3000 11.0000-18.0000 PLT (test code = PLT) 278.0000 140.0000-440.0000 MPV (test code = MPV) 7.6000 fL 6.8000-10.6000 U Color (test code = U Color) Light yell U Urobilinogen (test code = U Urobilinogen) 0.2 U Specific Holden (test code = U Specific 1.0150 Holden) U Appearance (test code = U Appearance) Sl Cloudy U Glucose (test code = U Glucose) Negative U Bilirubin (test code = U Bilirubin) Negative U Ketones (test code = U Ketones) Negative U Blood (test code = U Blood) Negative U pH (test code = U pH) 7.5000 5.0000-8.0000 U Protein (test code = U Protein) Negative U Nitrite (test code = U Nitrite) Negative U Leuk Esterase (test code = U Leuk Esterase) Negative [id number] 08:56:00 Test Item Value Reference Range Comments Creatinine (test code = Creatinine) 0.7000 mg/dL 0.5000-1.200 0 Cr Clearance (Est) (test code = Cr 67.2000 75.0000-115.0 000 Clearance (Est)) Glucose (test code = Glucose) 112.0000 mg/dL 70.0000-118.0000 BUN (test code = BUN) 9.0000 mg/dL 7.0000-22.0000 Sodium (test code = Sodium) 140.0000 mmol/L 128.0000-145.0000 Potassium (test code = Potassium) 3.6000 mmol/L 3.6000-5.1000 Chloride (test code = Chloride) 100.0000 mmol/L 96.0000-108.0000 CO2 (test code = CO2) 30.0000 mmol/L 18.0000-33.0000 Calcium (test code = Calcium) 8.3600 mg/dL 8.0000-10.3000 Alkaline Phosphatase (test code = Alkaline 72.0000 42.00 00-141.0000 Phosphatase) ALT (SGPT) (test code = ALT (SGPT)) 11.0000 10.0000-47.0 000 AST (SGOT) (test code = AST (SGOT)) 14.0000 11.0000-37.0 000 Bilirubin, Total (test code = Bilirubin, 0.4000 mg/dL 0.0000- 1.6000 Total) Albumin (test code = Albumin) 4.1000 g/dL 3.5000-5.5000 Protein, Total (test code = Protein, 6.4000 g/dL 6.4000-8.10 00 Total) eGFR -Nigerien (test code = eGFR 104.0000 60.0000- 200.0000 -Nigerien) eGFR Dof-Vxqkvay-Xhmpudqm (test code = 86.0000 60.0000-2 00.0000 eGFR Zsg-Thurjlh-Eblbptsr) U [id number] 09:11:00 Test Item Value Reference Range Comments U Color (test code = U Color) Light yell U Urobilinogen (test code = U Urobilinogen) 0.2 U Specific Holden (test code = U Specific 1.0100 Holden) U Appearance (test code = U Appearance) Cloudy U Glucose (test code = U Glucose) Negative U Bilirubin (test code = U Bilirubin) Negative U Ketones (test code = U Ketones) Negative U Blood (test code = U Blood) Negative U pH (test code = U pH) 7.0000 5.0000-8.0000 U Protein (test code = U Protein) Negative U Nitrite (test code = U Nitrite) Negative U Leuk Esterase (test code = U Leuk Esterase) Negative WBC (test code = WBC) 3.9000 4.0000-10.0000 Lymphocytes % (test code = Lymphocytes %) 45.8000 % 22.400 0-43.6000 MID% (test code = MID%) 10.3000 % 1.2000-11.2000 Neutrophils % (test code = Neutrophils %) 43.9000 % 48.900 0-69.9000 Lymphocytes (test code = Lymphocytes) 1.8000 1.2000-3.2 000 MID (test code = MID) 0.4000 0.1000-1.1000 Neutrophils (test code = Neutrophils) 1.7000 1.5000-6.7 000 RBC (test code = RBC) 4.6400 3.7000-4.9000 HGB (test code = HGB) 11.7000 g/dL 11.2000-18.0000 HCT (test code = HCT) 37.0000 % 34.0000-44.0000 MCV (test code = MCV) 79.7000 fL 80.0000-94.0000 MCH (test code = MCH) 25.3000 pg 27.0000-34.0000 MCHC (test code = MCHC) 31.8000 g/dL 31.5000-36.0000 RDW (test code = RDW) 16.5000 11.0000-18.0000 PLT (test code = PLT) 268.0000 140.0000-440.0000 MPV (test code = MPV) 7.5000 fL 6.8000-10.6000 [id number] 09:02:00 Test Item Value Reference Range Comments Creatinine (test code = Creatinine) 0.7000 mg/dL 0.5000-1.200 0 Cr Clearance (Est) (test code = Cr 67.0800 75.0000-115.0 000 Clearance (Est)) Glucose (test code = Glucose) 124.0000 mg/dL 70.0000-118.0000 BUN (test code = BUN) 9.0000 mg/dL 7.0000-22.0000 Sodium (test code = Sodium) 141.0000 mmol/L 128.0000-145.0000 Potassium (test code = Potassium) 2.9000 mmol/L 3.6000-5.1000 Chloride (test code = Chloride) 98.0000 mmol/L 96.0000-108.0000 CO2 (test code = CO2) 29.0000 mmol/L 18.0000-33.0000 Calcium (test code = Calcium) 8.9000 mg/dL 8.0000-10.3000 Alkaline Phosphatase (test code = Alkaline 73.0000 42.00 00-141.0000 Phosphatase) ALT (SGPT) (test code = ALT (SGPT)) 10.0000 10.0000-47.0 000 AST (SGOT) (test code = AST (SGOT)) 13.0000 11.0000-37.0 000 Bilirubin, Total (test code = Bilirubin, 0.4000 mg/dL 0.0000- 1.6000 Total) Albumin (test code = Albumin) 4.1000 g/dL 3.5000-5.5000 Protein, Total (test code = Protein, 6.4000 g/dL 6.4000-8.10 00 Total) eGFR -Nigerien (test code = eGFR 104.0000 60.0000- 200.0000 -Nigerien) eGFR Bhc-Ushrsej-Hmhmlnss (test code = 86.0000 60.0000-2 00.0000 eGFR Zoj-Rfnekzt-Ugvorfur) [id number] 15:43:00 Test Item Value Reference Range Comments Magnesium (test code = Magnesium) 2.0000 mg/dL 1.6000-2.3000 [id number] 09:05:00 Test Item Value Reference Range Comments Creatinine (test code = Creatinine) 0.8000 mg/dL 0.5000-1.200 0 Cr Clearance (Est) (test code = Cr 58.5800 75.0000-115.0 000 Clearance (Est)) Glucose (test code = Glucose) 139.0000 mg/dL 70.0000-118.0000 BUN (test code = BUN) 13.0000 mg/dL 7.0000-22.0000 Sodium (test code = Sodium) 139.0000 mmol/L 128.0000-145.0000 Potassium (test code = Potassium) 2.9000 mmol/L 3.6000-5.1000 Chloride (test code = Chloride) 96.0000 mmol/L 96.0000-108.0000 CO2 (test code = CO2) 30.0000 mmol/L 18.0000-33.0000 Calcium (test code = Calcium) 9.7400 mg/dL 8.0000-10.3000 Alkaline Phosphatase (test code = Alkaline 69.0000 42.00 00-141.0000 Phosphatase) ALT (SGPT) (test code = ALT (SGPT)) 11.0000 10.0000-47.0 000 AST (SGOT) (test code = AST (SGOT)) 15.0000 11.0000-37.0 000 Bilirubin, Total (test code = Bilirubin, 0.5000 mg/dL 0.0000- 1.6000 Total) Albumin (test code = Albumin) 4.4000 g/dL 3.5000-5.5000 Protein, Total (test code = Protein, 6.7000 g/dL 6.4000-8.10 00 Total) eGFR -Nigerien (test code = eGFR 89.0000 60.0000- 200.0000 -Nigerien) eGFR Yup-Bkiignp-Sqwqligz (test code = 73.0000 60.0000-2 00.0000 eGFR Ooc-Pvsefud-Qbxgwqwe) U [id number] 09:05:00 Test Item Value Reference Range Comments U Color (test code = U Color) Light yell U Urobilinogen (test code = U Urobilinogen) 0.2 U Specific Holden (test code = U Specific 1.0150 Holden) U Appearance (test code = U Appearance) Cloudy U Glucose (test code = U Glucose) Negative U Bilirubin (test code = U Bilirubin) Negative U Ketones (test code = U Ketones) Negative U Blood (test code = U Blood) Trace-inta U pH (test code = U pH) 7.5000 5.0000-8.0000 U Protein (test code = U Protein) Negative U Nitrite (test code = U Nitrite) Negative U Leuk Esterase (test code = U Leuk Esterase) Trace [id number] 09:04:00 Test Item Value Reference Range Comments WBC (test code = WBC) 4.1000 4.0000-10.0000 Lymphocytes % (test code = Lymphocytes %) 29.4000 % 22.400 0-43.6000 MID% (test code = MID%) 10.7000 % 1.2000-11.2000 Neutrophils % (test code = Neutrophils %) 59.9000 % 48.900 0-69.9000 Lymphocytes (test code = Lymphocytes) 1.2000 1.2000-3.2 000 MID (test code = MID) 0.5000 0.1000-1.1000 Neutrophils (test code = Neutrophils) 2.4000 1.5000-6.7 000 RBC (test code = RBC) 4.8000 3.7000-4.9000 HGB (test code = HGB) 11.8000 g/dL 11.2000-18.0000 HCT (test code = HCT) 38.2000 % 34.0000-44.0000 MCV (test code = MCV) 79.5000 fL 80.0000-94.0000 MCH (test code = MCH) 24.6000 pg 27.0000-34.0000 MCHC (test code = MCHC) 31.0000 g/dL 31.5000-36.0000 RDW (test code = RDW) 16.1999 11.0000-18.0000 PLT (test code = PLT) 264.0000 140.0000-440.0000 MPV (test code = MPV) 7.2000 fL 6.8000-10.6000 [id number] 11:24:00 Test Item Value Reference Range Comments WBC (test code = WBC) 7.9000 4.0000-10.0000 Lymphocytes % (test code = Lymphocytes %) 28.7000 % 22.400 0-43.6000 MID% (test code = MID%) 6.6000 % 1.2000-11.2000 Neutrophils % (test code = Neutrophils %) 64.7000 % 48.900 0-69.9000 Lymphocytes (test code = Lymphocytes) 2.2000 1.2000-3.2 000 MID (test code = MID) 0.6000 0.1000-1.1000 Neutrophils (test code = Neutrophils) 5.1000 1.5000-6.7 000 RBC (test code = RBC) 4.7000 3.7000-4.9000 HGB (test code = HGB) 12.5000 g/dL 11.2000-18.0000 HCT (test code = HCT) 37.6000 % 34.0000-44.0000 MCV (test code = MCV) 79.9000 fL 80.0000-94.0000 MCH (test code = MCH) 26.7000 pg 27.0000-34.0000 MCHC (test code = MCHC) 33.4000 g/dL 31.5000-36.0000 RDW (test code = RDW) 15.6000 11.0000-18.0000 PLT (test code = PLT) 257.0000 140.0000-440.0000 MPV (test code = MPV) 8.8000 fL 6.8000-10.6000 U Color (test code = U Color) Light yell U Urobilinogen (test code = U Urobilinogen) 0.2 U Specific Holden (test code = U Specific 1.0150 Holden) U Appearance (test code = U Appearance) Cloudy U Glucose (test code = U Glucose) Negative U Bilirubin (test code = U Bilirubin) Negative U Ketones (test code = U Ketones) Negative U Blood (test code = U Blood) Negative U pH (test code = U pH) 7.0000 5.0000-8.0000 U Protein (test code = U Protein) Trace U Nitrite (test code = U Nitrite) Negative U Leuk Esterase (test code = U Leuk Esterase) Negative [id number] 09:14:00 Test Item Value Reference Range Comments WBC (test code = WBC) 4.6000 4.0000-10.0000 Lymphocytes % (test code = Lymphocytes %) 26.4000 % 22.400 0-43.6000 MID% (test code = MID%) 10.7000 % 1.2000-11.2000 Neutrophils % (test code = Neutrophils %) 62.9000 % 48.900 0-69.9000 Lymphocytes (test code = Lymphocytes) 1.2000 1.2000-3.2 000 MID (test code = MID) 0.5000 0.1000-1.1000 Neutrophils (test code = Neutrophils) 2.9000 1.5000-6.7 000 RBC (test code = RBC) 4.4400 3.7000-4.9000 HGB (test code = HGB) 11.7000 g/dL 11.2000-18.0000 HCT (test code = HCT) 34.4000 % 34.0000-44.0000 MCV (test code = MCV) 77.5000 fL 80.0000-94.0000 MCH (test code = MCH) 26.5000 pg 27.0000-34.0000 MCHC (test code = MCHC) 34.2000 g/dL 31.5000-36.0000 RDW (test code = RDW) 14.8000 11.0000-18.0000 PLT (test code = PLT) 411.0000 140.0000-440.0000 MPV (test code = MPV) 7.4000 fL 6.8000-10.6000 U Color (test code = U Color) Yellow U Urobilinogen (test code = U Urobilinogen) 0.2 U Specific Holden (test code = U Specific 1.0150 Holden) U Appearance (test code = U Appearance) Sl Cloudy U Glucose (test code = U Glucose) Negative U Bilirubin (test code = U Bilirubin) Negative U Ketones (test code = U Ketones) Negative U Blood (test code = U Blood) Negative U pH (test code = U pH) 7.0000 5.0000-8.0000 U Protein (test code = U Protein) Negative U Nitrite (test code = U Nitrite) Negative U Leuk Esterase (test code = U Leuk Esterase) Negative [id number] 09:14:00 Test Item Value Reference Range Comments Creatinine (test code = Creatinine) 0.7000 mg/dL 0.5000-1.200 0 Cr Clearance (Est) (test code = Cr 67.4400 75.0000-115.0 000 Clearance (Est)) Glucose (test code = Glucose) 138.0000 mg/dL 70.0000-118.0000 BUN (test code = BUN) 15.0000 mg/dL 7.0000-22.0000 Sodium (test code = Sodium) 139.0000 mmol/L 128.0000-145.0000 Potassium (test code = Potassium) 3.1000 mmol/L 3.6000-5.1000 Chloride (test code = Chloride) 93.0000 mmol/L 96.0000-108.0000 CO2 (test code = CO2) 31.0000 mmol/L 18.0000-33.0000 Calcium (test code = Calcium) 8.7800 mg/dL 8.0000-10.3000 Alkaline Phosphatase (test code = Alkaline 80.0000 42.00 00-141.0000 Phosphatase) ALT (SGPT) (test code = ALT (SGPT)) 16.0000 10.0000-47.0 000 AST (SGOT) (test code = AST (SGOT)) 17.0000 11.0000-37.0 000 Bilirubin, Total (test code = Bilirubin, 0.5000 mg/dL 0.0000- 1.6000 Total) Albumin (test code = Albumin) 4.4000 g/dL 3.5000-5.5000 Protein, Total (test code = Protein, 7.0000 g/dL 6.4000-8.10 00 Total) eGFR -Nigerien (test code = eGFR 104.0000 60.0000- 200.0000 -Nigerien) eGFR Laj-Bkutntm-Vypbvhme (test code = 86.0000 60.0000-2 00.0000 eGFR Ack-Yuvduhg-Lfjwflba) [id number] 11:52:00 Test Item Value Reference Range Comments WBC (test code = WBC) 12.1000 4.0000-10.0000 Lymphocytes % (test code = Lymphocytes %) 14.7000 % 22.400 0-43.6000 MID% (test code = MID%) 5.0000 % 1.2000-.1999 Neutrophils % (test code = Neutrophils %) 80.3000 % 48.900 0-69.9000 Lymphocytes (test code = Lymphocytes) 1.7000 1.2000-3.2 000 MID (test code = MID) 0.7000 0.1000-1.1000 Neutrophils (test code = Neutrophils) 9.7000 1.5000-6.7 000 RBC (test code = RBC) 4.4300 3.7000-4.9000 HGB (test code = HGB) 11.5000 g/dL 11.2000-18.0000 HCT (test code = HCT) 34.9000 % 34.0000-44.0000 MCV (test code = MCV) 79.0000 fL 80.0000-94.0000 MCH (test code = MCH) 26.1000 pg 27.0000-34.0000 MCHC (test code = MCHC) 33.0000 g/dL 31.5000-36.0000 RDW (test code = RDW) 14.1000 11.0000-18.0000 PLT (test code = PLT) 360.0000 140.0000-440.0000 MPV (test code = MPV) 8.0000 fL 6.8000-10.6000 [id number] 09:05:00 Test Item Value Reference Range Comments WBC (test code = WBC) 15.8000 4.0000-10.0000 Lymphocytes % (test code = Lymphocytes %) 9.5000 % 22.400 0-43.6000 MID% (test code = MID%) 4.2000 % .1999- Neutrophils % (test code = Neutrophils %) 86.3000 % 48.900 0-69.9000 Lymphocytes (test code = Lymphocytes) 1.5000 1.2000-3.2 000 MID (test code = MID) 0.7000 0.1000-1.1000 Neutrophils (test code = Neutrophils) 13.6000 1.5000-6.7 000 RBC (test code = RBC) 4.6000 3.7000-4.9000 HGB (test code = HGB) 11.5000 g/dL 11.2000-18.0000 HCT (test code = HCT) 36.9000 % 34.0000-44.0000 MCV (test code = MCV) 80.1000 fL 80.0000-94.0000 MCH (test code = MCH) 25.0000 pg 27.0000-34.0000 MCHC (test code = MCHC) 31.2000 g/dL 31.5000-36.0000 RDW (test code = RDW) 14.7000 11.0000-18.0000 PLT (test code = PLT) 669.0000 140.0000-440.0000 MPV (test code = MPV) 7.5000 fL 6.8000-10.6000 U Color (test code = U Color) Yellow U Urobilinogen (test code = U Urobilinogen) 0.2 U Specific Holden (test code = U Specific 1.0150 Holden) U Appearance (test code = U Appearance) Clear U Glucose (test code = U Glucose) Negative U Bilirubin (test code = U Bilirubin) Negative U Ketones (test code = U Ketones) Negative U Blood (test code = U Blood) Negative U pH (test code = U pH) 8.5000 5.0000-8.0000 U Protein (test code = U Protein) Trace U Nitrite (test code = U Nitrite) Negative U Leuk Esterase (test code = U Leuk Esterase) Negative [id number] 09:05:00 Test Item Value Reference Range Comments Creatinine (test code = Creatinine) 0.8000 mg/dL 0.5000-1.200 0 Cr Clearance (Est) (test code = Cr 63.8700 75.0000-115.0 000 Clearance (Est)) Glucose (test code = Glucose) 135.0000 mg/dL 70.0000-118.0000 BUN (test code = BUN) 21.0000 mg/dL 7.0000-22.0000 Sodium (test code = Sodium) 134.0000 mmol/L 128.0000-145.0000 Potassium (test code = Potassium) 3.7000 mmol/L 3.6000-5.1000 Chloride (test code = Chloride) 92.0000 mmol/L 96.0000-108.0000 CO2 (test code = CO2) 29.0000 mmol/L 18.0000-33.0000 Calcium (test code = Calcium) 9.3700 mg/dL 8.0000-10.3000 Alkaline Phosphatase (test code = Alkaline 102.0000 42.00 00-141.0000 Phosphatase) ALT (SGPT) (test code = ALT (SGPT)) 40.0000 10.0000-47.0 000 AST (SGOT) (test code = AST (SGOT)) 32.0000 11.0000-37.0 000 Bilirubin, Total (test code = Bilirubin, 0.5000 mg/dL 0.0000- 1.6000 Total) Albumin (test code = Albumin) 4.0000 g/dL 3.5000-5.5000 Protein, Total (test code = Protein, 6.6000 g/dL 6.4000-8.10 00 Total) eGFR -Nigerien (test code = eGFR 89.0000 60.0000- 200.0000 -Nigerien) eGFR Pex-Isicsev-Sypjnvtl (test code = 73.0000 60.0000-2 00.0000 eGFR Qve-Mldqkpk-Bqnywcmq) [id number] 10:48:00 Test Item Value Reference Range Comments Creatinine (test code = Creatinine) 0.7700 mg/dL 0.5700-1.000 0 Cr Clearance (Est) (test code = Cr 61.3100 75.0000-115.0 000 Clearance (Est)) Glucose (test code = Glucose) 114.0000 mg/dL 65.0000-99.0000 BUN (test code = BUN) 16.0000 mg/dL 6.0000-24.0000 eGFR Sxu-Vwjpjan-Fgamffhk (test code = 85.0000 eGFR Ggo-Gwsawtc-Xidiqihv) eGFR -Nigerien (test code = eGFR 98.0000 -Nigerien) BUN/Creat Ratio (test code = BUN/Creat 21.0000 9.0000-23 .0000 Ratio) Sodium (test code = Sodium) 136.0000 mmol/L 134.0000-144.0000 Potassium (test code = Potassium) 3.8000 mmol/L 3.5000-5.2000 Chloride (test code = Chloride) 91.0000 mmol/L 96.0000-106.0000 CO2 (test code = CO2) 27.0000 mmol/L 20.0000-29.0000 Calcium (test code = Calcium) 9.3000 mg/dL 8.7000-10.2000 Protein, Total (test code = Protein, 6.6000 g/dL 6.0000-8.50 00 Total) Albumin (test code = Albumin) 3.7000 g/dL 3.5000-5.5000 Globulin (test code = Globulin) 2.9000 g/dL 1.5000-4.5000 A/G Ratio (test code = A/G Ratio) 1.3000 1.2000-2.2000 Bilirubin, Total (test code = Bilirubin, 0.2000 mg/dL 0.0000- 1.2000 Total) Alkaline Phosphatase (test code = Alkaline 114.0000 39.00 00-117.0000 Phosphatase) AST (SGOT) (test code = AST (SGOT)) 31.0000 0.0000-40.00 00 ALT (SGPT) (test code = ALT (SGPT)) 43.0000 0.0000-32.00 00 [id number] 10:48:00 Test Item Value Reference Range Comments CEA (test code = CEA) 421.1000 ng/mL 0.0000-4.7000 CA 125 (test code = CA 688) 022.7311 0.0000-38.1000 [id number] 16:03:00 Test Item Value Reference Range Comments WBC (test code = WBC) 16.1000 4.0000-10.0000 Lymphocytes % (test code = Lymphocytes %) 9.3000 % 22.400 0-43.6000 MID% (test code = MID%) 3.4000 % 1.2000-11.2000 Neutrophils % (test code = Neutrophils %) 87.3000 % 48.900 0-69.9000 Lymphocytes (test code = Lymphocytes) 1.5000 1.2000-3.2 000 MID (test code = MID) 0.5000 0.1000-1.1000 Neutrophils (test code = Neutrophils) 14.1000 1.5000-6.7 000 RBC (test code = RBC) 4.8700 3.7000-4.9000 HGB (test code = HGB) 12.5000 g/dL 11.2000-18.0000 HCT (test code = HCT) 38.7000 % 34.0000-44.0000 MCV (test code = MCV) 79.5000 fL 80.0000-94.0000 MCH (test code = MCH) 25.7000 pg 27.0000-34.0000 MCHC (test code = MCHC) 32.3000 g/dL 31.5000-36.0000 RDW (test code = RDW) 14.4000 11.0000-18.0000 PLT (test code = PLT) 566.0000 140.0000-440.0000 MPV (test code = MPV) 7.4000 fL 6.8000-10.6000 U [id number] 12:47:00 Test Item Value Reference Range Comments U Color (test code = U Color) Yellow U Specific Holden (test code = U Specific 1.0150 1.005 0-1.0300 Holden) U pH (test code = U pH) 7.0000 5.0000-7.5000 U Appearance (test code = U Appearance) Clear U Leuk Esterase (test code = U Leuk Esterase) Negative U Protein (test code = U Protein) Negative U Glucose (test code = U Glucose) Negative U Ketones (test code = U Ketones) Negative U Blood (test code = U Blood) Negative U Bilirubin (test code = U Bilirubin) Negative U Urobilinogen (test code = U Urobilinogen) 0.2000 mg/dL 0.20 00-1.0000 U Nitrites (test code = U Nitrites) Negative U Micro [id number] 12:47:00 Test Item Value Reference Range Comments U Micro Exam (test code = U Comment Micro Exam) Urine Culture Status (test Final report code = Urine Culture Status) Urine Culture Result 1 (test Comment Mixed urogenital leonides code = Urine Culture Result Less than 10,000 colonies/mL 1) Encounters Start End Encounter Admission Attending Care Care Encounter Date/Time Date/Time Type Type Clinicians Facility Department ID 2020-01-06 2020-01-06 Outpatient Alok Sarah n [id number] 00:00:00 00:00:00 Matilda dorsey [facility] Medical Oncology Oncology Center Center 2020-01-01 2020-01-01 Outpatient Alok Dickinson n [id number] 00:00:00 00:00:00 willian [facility] Medical Oncology Oncology Center Center 2019-12-31 2019-12-31 Dr. Tyrel Sarah [facility] n [id number] 00:00:00 00:00:00 Matilda Grey [facility] Medical Oncology Oncology Center [place] 2019-12-05 2019-12-05 Outpatient Kylahtammi Kylahtammi n [id number] 00:00:00 00:00:00 [facility] Medical Oncology Oncology Center [place] 2019-11-22 2019-11-22 Outpatient Alok Monterotammi n [id number] 00:00:00 00:00:00 Medical Medical Oncology Oncology [facility] [place] 2019-11-15 2019-11-15 MarimarMrsForrest Sarah Kylahtammi Kylahtammi n [id number] 00:00:00 00:00:00 Pia Grey [facility] Medical Oncology Oncology [facility] [place] 2019-11-13 2019-11-13 Outpatient Tyrel Kylahtammi Kylahtammi n [id number] 00:00:00 00:00:00 Matilda [facility] Medical Oncology Oncology [facility] [place] 2019-11-11 2019-11-11 Outpatient Alok Monterotammi n [id number] 00:00:00 00:00:00 [facility] Medical Oncology Oncology [facility] [place] 2019-11-07 2019-11-07 Outpatient Tyrel Kylahtammi Kylahtammi n [id number] 00:00:00 00:00:00 Matilda [facility] Medical Oncology Oncology [facility] [place] 2019-11-06 2019-11-06 Outpatient Kylahtammi Kylahtammi n [id number] 00:00:00 00:00:00 [facility] Medical Oncology Oncology [facility] [place] 2019-11-01 2019-11-01 Outpatient Alok Monterotammi n [id number] 00:00:00 00:00:00 Medical Medical Oncology Oncology [facility] [place] 2019-10-31 2019-10-31 Dr. Tyrel Sarah [facility] n [id number] 00:00:00 00:00:00 Matilda Grey [facility] Medical Oncology Oncology [facility] [place] 2019-10-28 2019-10-28 Outpatient Tyrel Kylahtammi Kylahtammi n [id number] 00:00:00 00:00:00 Matilda dosrey Medical Medical Oncology Oncology [facility] [place] 2019-10-25 2019-10-25 Outpatient Alok Monterotammi n [id number] 00:00:00 00:00:00 [facility] Medical Oncology Oncology [facility] [place] 2019-10-08 2019-10-08 Outpatient AsaadAlok n [id number] 00:00:00 00:00:00 Matilda Medical Medical Oncology Oncology [facility] [place] 2019-10-07 2019-10-07 Outpatient Alok Dickinson n [id number] 00:00:00 00:00:00 n Medical Medical Oncology Oncology [facility] [place] 2019-09-25 2019-09-25 Outpatient Alok Dickinson n [id number] 00:00:00 00:00:00 [facility] Medical Oncology Oncology [facility] [place] 2019-09-23 2019-09-23 Outpatient AsaadAlok n [id number] 00:00:00 00:00:00 Matilda n Medical Medical Oncology Oncology [facility] [place] 2019-09-20 2019-09-20 Outpatient Alok Dickinson n [id number] 00:00:00 00:00:00 Medical Medical Oncology Oncology [facility] 2019-09-13 2019-09-13 Outpatient Alok Dickinson n [id number] 00:00:00 00:00:00 [facility] Medical Oncology Oncology [facility] 2019-08-23 2019-08-23 Outpatient Alok Dickinson n [id number] 00:00:00 00:00:00 [facility] Medical Oncology Oncology [facility] [place] 2019-08-20 2019-08-20 Outpatient [facility] [id number] 00:00:00 00:00:00 _[id number] 2019-08-05 Outpatient Alok Dickinson n [id number] 00:00:00 00:00:00 [facility] Medical Oncology Oncology [facility] 2019-07-29 2019-07-29 Outpatient Alok Dickinson n [id number] 00:00:00 00:00:00 [facility] Medical Oncology Oncology [facility] [place] 2019-07-10 2019-07-10 Outpatient Alok Dickinson n [id number] 00:00:00 00:00:00 Medical Medical Oncology Oncology [facility] [place] 2019-07-01 2019-07-01 Outpatient AsaAlok hernandez n [id number] 00:00:00 00:00:00 Matilda n Medical Medical Oncology Oncology [facility] [place] 2019-06-28 2019-06-28 Outpatient AsaadAlok n [id number] 00:00:[facility] [place] 2019-06-25 2019-06-25 Outpatient Alok Dickinson n [id number] 00:00:00 00:00:00 Medical Medical Oncology Oncology Center [facility] 2019-06-18 2019-06-18 Outpatient Kylah Kylah n [id number] 00:00:00 00:00:00 Medical Medical Oncology Oncology [facility] [place] 2019-06-17 2019-06-17 Outpatient Kylahtammi Kylahtammi n [id number] 00:00:00 00:00:00 Medical Medical Oncology Oncology [facility] [place] 2019-06-13 2019-06-13 Outpatient Kylah Kylah n [id number] 00:00:00 00:00:00 Medical Medical Oncology Oncology [facility] [place] 2019-06-10 2019-06-10 Outpatient Kylah Kylah n [id number] 00:00:00 00:00:00 Medical Medical Oncology Oncology [facility] [place] 2019-06-04 2019-06-04 [facility] [id number] [facility]:00:00 00:00:00 Matilda Grey [facility] Medical Oncology Oncology [facility] [place] 2019-06-03 2019-06-03 Outpatient Alok Dickinson n [id number] 00:00:00 00:00:00 Medical Medical Oncology Oncology [facility] [place] 2019-05-28 2019-05-28 [facility] [id number] 00:00:00 00:00:00 Matilda Grey [facility] Medical Oncology Oncology [facility] [place] 2019-05-21 2019-05-21 Tyrel Arnett [facility] [id number] 00:00:00 00:00:00 Matilda [facility] Oncology Oncology [facility] [place] 2019-05-15 2019-05-15 Outpatient Alok Kylahtammi n [id number] 00:00:00 00:00:00 Medical Medical Oncology Oncology [facility] [place] 2019-05-14 2019-05-14 Outpatient Alok Sarah n [id number] 00:00:00 00:00:00 Matilda dorsey Medical Medical Oncology Oncology [facility] [place] 2019-05-09 2019-05-09 Outpatient Alok Sarah n [id number] 00:00:00 00:00:00 Matilda dorsey Medical Medical Oncology Oncology [facility] [place] 2019-05-08 2019-05-08 Outpatient Alok Kylahtammi n [id number] 00:00:00 00:00:00 Medical Medical Oncology Oncology [facility] [place] 2019-05-07 2019-05-07 [facility] [id number] [facility]:00:00 00:00:00 Malika Diaznda [facility] Medical Oncology Oncology [facility] [place] 2019-04-30 2019-04-30 Outpatient Alok Sarah n [id number] 00:00:00 00:00:00 Matilda [facility] Medical Oncology Oncology [facility] [place] 2019-04-25 2019-04-25 Outpatient Alok Sarah n [id number] 00:00:00 00:00:00 Matilda Medical Medical Oncology Oncology [facility] [place] 2019-04-23 2019-04-23 Tyrel Martinez [facility] 2 [id number] 00:00:00 00:00:00 [facility] [facility] [place] 2019-04-19 2019-04-19 Outpatient Alok Montero n [id number] 00:00:00 00:00:00 [facility] Medical Oncology Oncology [facility] [place] 2019-04-17 2019-04-17 Outpatient Alok Sarah n [id number] 00:00:00 00:00:00 Matilda [facility] Medical Oncology Oncology [facility] [place] 2019-04-16 2019-04-16 Outpatient Alok Sarah n [id number] 00:00:00 00:00:00 Matilda [facility] Medical Oncology Oncology [facility] [place] 2019-04-12 2019-04-12 Outpatient Alok Montero n [id number] 00:00:00 00:00:00 [facility] Medical Oncology Oncology [facility] [place] 2019-04-10 2019-04-10 Outpatient Alok Sarah n [id number] 00:00:00 00:00:00 Matilda [facility] Medical Oncology Oncology [facility] [place] 2019-04-09 2019-04-09 Mrs. Tyrel Minaya [facility] Kylah n [id number] 00:00:00 00:00:00 Pia A Matilda [facility] Medical Oncology Oncology [facility] [place] 2019-04-05 2019-04-05 Outpatient Alok Sarah n [id number] 00:00:00 00:00:00 Matilda [facility] Medical Oncology Oncology [facility] [place] 2019-04-04 2019-04-04 Outpatient Alok Montero n [id number] 00:00:00 00:00:00 Medical Medical Oncology Oncology [facility] [place] 2019-04-02 2019-04-02 Outpatient TyrelAloktammi n [id number] 00:00:00 00:00:00 Matilda dorsey Medical Medical Oncology Oncology [facility] [place] 2019-03-27 2019-03-27 Outpatient Tyrel Alok Monterotammi n [id number] 00:00:00 00:00:00 Matilda dorsey Medical Medical Oncology Oncology [facility] [place] 2019-03-26 2019-03-26 Dr. Tyrel Sarah [facility] n [id number] 00:00:00 00:00:00 Matilda dorsey Medical Medical Oncology Oncology [facility] [place] 2019-03-19 2019-03-19 Outpatient Tyrel Kylahtammi Kylahtammi n [id number] 00:00:00 00:00:00 Matilda dorsey [facility] Medical Oncology Oncology [facility] [place] 2019-03-13 2019-03-13 Outpatient Tyrel Kylahtammi Kylahtammi n [id number] 00:00:00 00:00:00 Matilda dorsey [facility] Medical Oncology Oncology [facility] [place] 2019-03-12 2019-03-12 Outpatient Alok Monterotammi n [id number] 00:00:00 00:00:00 Medical Medical Oncology Oncology [facility] [place] 2019-03-11 2019-03-11 Dr. Tyrel Sarah [facility] Kyla[facility]i n [id number] 00:00:00 00:00:00 Matilda Grey [facility] Medical Oncology Oncology [facility] [place] 2019-03-07 2019-03-07 Outpatient Alok Monterotammi n [id number] 00:00:00 00:00:00 [facility] Oncology Oncology [facility] [place] 2019-02-15 2019-02-15 Outpatient Alok Kylahtammi n [id number] 00:00:00 00:00:00 n [facility] Medical Oncology Oncology [facility] [place] 2019-02-06 2019-02-06 Outpatient Kylahtammi Kylahtammi n [id number] 00:00:00 00:00:00 n [facility] Medical Oncology Oncology [facility] [place] 2019-01-31 2019-01-31 Outpatient Kylahtammi Kylahtammi n [id number] 00:00:00 00:00:00 n [facility] Medical Oncology Oncology [facility] [place] 2019-01-18 2019-01-18 Outpatient Alok Kylahtammi n [id number] 00:00:00 00:00:00 [facility] Medical Oncology Oncology [facility] [place] 2019-01-17 2019-01-17 Outpatient Kylahtammi Kylahtammi n [id number] 00:00:00 00:00:00 n Medical Medical Oncology Oncology [facility] [place] 2019-01-15 2019-01-15 Outpatient Kylhatammi Kylahtammi n [id number] 00:00:00 00:00:00 n Medical Medical Oncology Oncology [facility] [place] 2018-12-31 2018-12-31 Outpatient Alok Kylahtammi n [id number] 00:00:00 00:00:00 [facility] Medical Oncology Oncology [facility] [place] 2018-12-20 2018-12-20 Outpatient Alok Kylahtammi n [id number] 00:00:00 00:00:00 n Medical Medical Oncology Oncology [facility] [place] 2018-12-11 2018-12-11 Outpatient Alok Kylahtammi n [id number] 00:00:00 00:00:00 [facility] Medical Oncology Oncology [facility] [place] 2018-12-06 2018-12-06 Outpatient Alok Sarah n [id number] 00:00:00 00:00:00 Matilda dorsey [facility] Medical Oncology Oncology [facility] [place] 2018-11-28 2018-11-28 Outpatient Alok Dickinson n [id number] 00:00:00 00:00:00 [facility] Medical Oncology Oncology [facility] [place] 2018-11-27 2018-11-27 Dr. Tyrel Sarah [facility] n [id number] 00:00:00 00:00:00 Matilda dorsey [facility] Medical Oncology Oncology [facility] [place] 2018-11-21 2018-11-21 Outpatient Alok Dickinson n [id number] 00:00:00 00:00:00 [facility] Medical Oncology Oncology [facility] [place] 2018-11-13 2018-11-13 Outpatient Alok Sarah [id number] 00:00:00 00:00:00 Matilda dorsey [facility] Medical Oncology Oncology [facility] [place] 2018-11-08 2018-11-08 Outpatient Alok dorsey [id number] 00:00:00 00:00:00 Medical Medical Oncology Oncology [facility] [place] 2018-10-31 2018-10-31 ? Alok Aron 2 [id number] 00:00:00 00:00:00 Medical Medical Oncology Oncology [facility] [place] 2018-10-30 2018-10-30 Dr. Alok Sarah [id number] 00:00:00 00:00:00 Matilda dorsey [facility] Medical Oncology Oncology [facility] [place] 2018-10-28 2018-10-28 Outpatient Alok dorsey [id number] 00:00:00 00:00:00 n Medical Medical Oncology Oncology [facility] [place] 2018-10-26 2018-10-26 Outpatient Alok Dickinson n [id number] 00:00:00 00:00:00 n [facility] Oncology Oncology [facility] [place] 2018-10-23 2018-10-23 Outpatient Alok Sarah n [id number] 00:00:00 00:00:00 Matilda n [facility] Medical Oncology Oncology [facility] [place] 2018-10-22 2018-10-22 Outpatient Alok Sarah n [id number] 00:00:00 00:00:00 Matilda n [facility] Medical Oncology Oncology [facility] [place] 2018-10-17 2018-10-17 Yefrit, Alok Ogden n [id number] 00:00:00 00:00:00 Pia A Matilda [facility] Medical Oncology Oncology [facility] [place] 2018-10-15 2018-10-15 Kast, Alok Ogden n [id number] 00:00:00 00:00:00 Pia A Matilda [facility] Medical Oncology Oncology [facility] [place] 2018-10-10 2018-10-10 Yefrit, Forrest Alok Dickinson n [id number] 00:00:00 00:00:00 Pia A n [facility] Oncology Oncology [facility] [place] 2018-10-04 2018-10-04 Outpatient Tyrel Alok Monterotammi n [id number] 00:00:00 00:00:00 Matilda n [facility] Medical Oncology Oncology [facility] [place] 2018-10-03 2018-10-03 Outpatient Theronmary Alok Monterotammi n [id number] 00:00:00 00:00:00 Matilda n [facility] Medical Oncology Oncology [facility] [place] 2018-09-28 2018-09-28 Outpatient Theronmary Alok Dickinson n [id number] 00:00:00 00:00:00 Matilda n [facility] Medical Oncology Oncology [facility] [place] 2018-09-27 2018-09-27 Outpatient Alok Monterotammi n [id number] 00:00:00 00:00:00 n [facility] Medical Oncology Oncology [facility] [place] 2018-09-26 2018-09-26 Dr. Alok Sarah n [id number] 00:00:00 00:00:00 Matilda dorsey [facility] Medical Oncology Oncology [facility] [place] 2018-09-25 2018-09-25 Outpatient Tyrel [facility] n [id number] 00:00:00 [facility] 2018-09-19 2018-09-19 Outpatient Tyrel [facility] n [id number] 00:00:00 00:00:00 [facility] 2018-09-18 2018-09-18 Outpatient Tyrel [facility] n [id number] 00:00:00 00:00:00 [facility] Oncology Oncology [facility] 2018-09-14 2018-09-14 Tyrel [place] [id number] 00:00:00 00:00:00 Lesvia Grey [facility] Oncology Oncology [facility] 2018-09-13 2018-09-13 Outpatient Tyrel [facility] n [id number] 00:00:00 00:00:00 [facility] 2018-09-12 2018-09-12 Outpatient Tyrel [facility] n [id number] 00:00:00 00:00:00 [facility] 2018-09-11 2018-09-11 Outpatient Tyrel [facility] n [id number] 00:00:00 00:00:00 Matilda [facility] Oncology Oncology [facility] 2018-09-10 2018-09-[id number]:00 00:00:00 Matilda Grey [facility] Oncology Oncology [facility] 2018-09-04 2018-09-04 Outpatient Tyrel [facility] n [id number] 00:00:00 00:00:[facility] 2018-09-03 2018-09-03 Outpatient Tyrel [facility] n [id number] 00:00:00 00:00:00 [facility] 2018-08-29 2018-08-29 Mrs. Marimar Tyrel [facility] n [id number] 00:00:00 00:00:00 Pia Cash Matilda [facility] Oncology Oncology [facility] 2018-08-28 2018-08-28 Outpatient [facility] n [id number] 00:00:00 00:00:00 [facility] Oncology Oncology [facility] [place] 2018-08-27 2018-08-27 Mrs MarimarForrest Sarah Kylah Kylah n [id number] 00:00:00 00:00:00 Pia Grey [facility] Oncology Oncology [facility] 2018-08-24 2018-08-24 [facility] [id number]:00 00:00:00 [facility] Oncology Oncology [facility] 2018-08-20 2018-08-20 Outpatient Tyrel Kylahtammi Kylah n [id number] 00:00:00 00:00:00 Matilda [facility] Oncology Oncology [facility] [place] 2018-08-17 2018-08-17 Outpatient Kylah Kylah n [id number] 00:00:00 00:00:00 [facility] Oncology Oncology [facility] 2018-08-15 2018-08-15 Outpatient Tyrel Kylah Kylah n [id number] 00:00:00 00:00:00 Matilda [facility] Oncology Oncology [facility] 2018-08-14 2018-08-14 Outpatient [facility] n [id number] 00:00:00 00:00:00 [facility] Oncology Oncology [facility] 2018-08-13 2018-08-13 Dr. Tyrel Sarah [facility] n [id number] 00:00:00 00:00:00 Matilda Grey [facility] Oncology Oncology [facility] 2018-08-10 2018-08-10 Outpatient [facility] n [id number] 00:00:00 00:00:00 [facility] Oncology Oncology [facility] 2018-08-09 2018-08-09 Tyrel Nguyen [facility] 2 [id number] 00:00:00 00:00:00 Ashley Grey [facility] Oncology Oncology [facility] 2018-08-06 2018-08-06 Outpatient Kylah Kylah n [id number] 00:00:00 00:00:00 [facility] Oncology Oncology [facility] 2018-08-02 2018-08-02 Outpatient Alok Sarah Kylahtammi n [id number] 00:00:00 00:00:00 Matilda dorsey [facility] Oncology Oncology [facility] [place] 2018-08-01 2018-08-01 Outpatient Alok Sarah [facility] n [id number] 00:00:00 00:00:00 Matilda [facility] Oncology Oncology [facility] 2018-07-30 2018-07-30 Outpatient [facility] n [id number] 00:00:00 00:00:00 [facility] Oncology Oncology [facility] 2018-07-26 2018-07-26 Dr. Tyrel Sarah, [facility] n [id number] 00:00:00 00:00:00 Matilda [facility] Oncology [facility] 2018-07-25 2018-07-25 Outpatient [facility] n [id number] 00:00:00 00:00:00 [facility] Oncology Oncology [facility] 2018-07-20 2018-07-20 Outpatient [facility] n [id number] 00:00:00 00:00:00 [facility] 2018-07-13 2018-07-13 Outpatient [facility] [id number] 00:00:00 00:00:00 [facility] 2018-07-09 2018-07-09 Outpatient [facility] [id number] 00:00:00 00:00:00 [facility] Immunizations Ordered Immunization Filled Immunization Date Status Commen ts Refusal Reason Name Name Afluria Quadrivalent 2019-12-31 Completed 00:00:00 Social History Smoking Status Start Date Stop Date Current every day smoker 2019-12-31 00:00:00 2019-12-31 00:0 0:00 Social History Observation Description Sex Female Vital Signs Vital Name Observation Time Observation Value Comments BMI 2019-12-31 15:01:37 13.9900 BP fu 2019-12-31 15:01:37 90.0000 mm[Hg] Bdy height 2019-12-31 15:01:37 63.0000 [in_i] Heart rate 2019-12-31 15:01:37 83.0000 /min Resp rate 2019-12-31 15:01:37 24.0000 /min BP sys 2019-12-31 15:01:37 171.0000 mm[Hg] Body temperature 2019-12-31 15:01:37 97.7000 [degF] Weight 2019-12-31 15:01:37 79.0000 [lb_av] BMI 2019-11-15 14:09:56 14.4900 BP fu 2019-11-15 14:09:56 108.0000 mm[Hg] Bdy height 2019-11-15 14:09:56 63.0000 [in_i] Heart rate 2019-11-15 14:09:56 94.0000 /min Resp rate 2019-11-15 14:09:56 18.0000 /min BP sys 2019-11-15 14:09:56 161.0000 mm[Hg] Body temperature 2019-11-15 14:09:56 98.2000 [degF] Weight 2019-11-15 14:09:56 81.8000 [lb_av] BMI 2019-10-31 10:58:30 14.2800 BP fu 2019-10-31 10:58:30 84.0000 mm[Hg] Bdy height 2019-10-31 10:58:30 63.0000 [in_i] Heart rate 2019-10-31 10:58:30 73.0000 /min Resp rate 2019-10-31 10:58:30 16.0000 /min BP sys 2019-10-31 10:58:30 151.0000 mm[Hg] Body temperature 2019-10-31 10:58:30 97.0000 [degF] Weight 2019-10-31 10:58:30 80.6000 [lb_av] Bdy height 2019-10-28 13:37:47 63.0000 [in_i] Body temperature 2019-10-28 13:37:47 97.3000 [degF] Bdy height 2019-07-01 13:37:45 63.0000 [in_i] Body temperature 2019-07-01 13:37:45 98.8000 [degF] BMI 2019-06-04 09:57:39 13.7800 BP fu 2019-06-04 09:57:39 82.0000 mm[Hg] Bdy height 2019-06-04 09:57:39 63.0000 [in_i] SaO2% BldA PulseOx 2019-06-04 09:57:39 94.0000 % Heart rate 2019-06-04 09:57:39 87.0000 /min Resp rate 2019-06-04 09:57:39 20.0000 /min BP sys 2019-06-04 09:57:39 138.0000 mm[Hg] Body temperature 2019-06-04 09:57:39 98.1000 [degF] Weight 2019-06-04 09:57:39 77.8000 [lb_av] BMI 2019-05-28 08:51:53 14.0700 BP fu 2019-05-28 08:51:53 79.0000 mm[Hg] Bdy height 2019-05-28 08:51:53 63.0000 [in_i] SaO2% BldA PulseOx 2019-05-28 08:51:53 97.0000 % Heart rate 2019-05-28 08:51:53 87.0000 /min Resp rate 2019-05-28 08:51:53 16.0000 /min BP sys 2019-05-28 08:51:53 137.0000 mm[Hg] Body temperature 2019-05-28 08:51:53 97.6000 [degF] Weight 2019-05-28 08:51:53 79.4000 [lb_av] BMI 2019-05-21 09:51:25 13.9600 BP fu 2019-05-21 09:51:25 90.0000 mm[Hg] Bdy height 2019-05-21 09:51:25 63.0000 [in_i] SaO2% BldA PulseOx 2019-05-21 09:51:25 92.0000 % Heart rate 2019-05-21 09:51:25 102.0000 /min Resp rate 2019-05-21 09:51:25 18.0000 /min BP sys 2019-05-21 09:51:25 147.0000 mm[Hg] Body temperature 2019-05-21 09:51:25 98.0000 [degF] Weight 2019-05-21 09:51:25 78.8000 [lb_av] BMI 2019-05-07 09:37:31 14.4500 BP fu 2019-05-07 09:37:31 88.0000 mm[Hg] Bdy height 2019-05-07 09:37:31 63.0000 [in_i] Heart rate 2019-05-07 09:37:31 84.0000 /min Resp rate 2019-05-07 09:37:31 16.0000 /min BP sys 2019-05-07 09:37:31 158.0000 mm[Hg] Body temperature 2019-05-07 09:37:31 97.4000 [degF] Weight 2019-05-07 09:37:31 81.6000 [lb_av] BMI 2019-04-25 14:15:35 15.0600 BP fu 2019-04-25 14:15:35 92.0000 mm[Hg] Bdy height 2019-04-25 14:15:35 63.0000 [in_i] SaO2% BldA PulseOx 2019-04-25 14:15:35 97.0000 % Heart rate 2019-04-25 14:15:35 76.0000 /min Resp rate 2019-04-25 14:15:35 18.0000 /min BP sys 2019-04-25 14:15:35 168.0000 mm[Hg] Body temperature 2019-04-25 14:15:35 98.1000 [degF] Weight 2019-04-25 14:15:35 85.0000 [lb_av] BMI 2019-04-23 11:19:19 14.7000 BP fu 2019-04-23 11:19:19 80.0000 mm[Hg] Bdy height 2019-04-23 11:19:19 63.0000 [in_i] SaO2% BldA PulseOx 2019-04-23 11:19:19 96.0000 % Heart rate 2019-04-23 11:19:19 76.0000 /min Resp rate 2019-04-23 11:19:19 15.0000 /min BP sys 2019-04-23 11:19:19 154.0000 mm[Hg] Body temperature 2019-04-23 11:19:19 97.1000 [degF] Weight 2019-04-23 11:19:19 83.0000 [lb_av] BMI 2019-04-10 14:47:27 15.0900 BP fu 2019-04-10 14:47:27 58.0000 mm[Hg] Bdy height 2019-04-10 14:47:27 63.0000 [in_i] SaO2% BldA PulseOx 2019-04-10 14:47:27 96.0000 % Heart rate 2019-04-10 14:47:27 84.0000 /min Resp rate 2019-04-10 14:47:27 16.0000 /min BP sys 2019-04-10 14:47:27 139.0000 mm[Hg] Body temperature 2019-04-10 14:47:27 99.1000 [degF] Weight 2019-04-10 14:47:27 85.2000 [lb_av] BMI 2019-04-09 09:34:30 14.8800 BP fu 2019-04-09 09:34:30 77.0000 mm[Hg] Bdy height 2019-04-09 09:34:30 63.0000 [in_i] SaO2% BldA PulseOx 2019-04-09 09:34:30 94.0000 % Heart rate 2019-04-09 09:34:30 82.0000 /min Resp rate 2019-04-09 09:34:30 16.0000 /min BP sys 2019-04-09 09:34:30 151.0000 mm[Hg] Body temperature 2019-04-09 09:34:30 97.4000 [degF] Weight 2019-04-09 09:34:30 84.0000 [lb_av] BMI 2019-03-26 09:09:58 15.4100 BP fu 2019-03-26 09:09:58 61.0000 mm[Hg] Bdy height 2019-03-26 09:09:58 63.0000 [in_i] SaO2% BldA PulseOx 2019-03-26 09:09:58 98.0000 % Heart rate 2019-03-26 09:09:58 102.0000 /min Resp rate 2019-03-26 09:09:58 17.0000 /min BP sys 2019-03-26 09:09:58 102.0000 mm[Hg] Body temperature 2019-03-26 09:09:58 97.4000 [degF] Weight 2019-03-26 09:09:58 87.0000 [lb_av] BMI 2019-03-11 16:13:52 15.5900 BP fu 2019-03-11 16:13:52 71.0000 mm[Hg] Bdy height 2019-03-11 16:13:52 63.0000 [in_i] Heart rate 2019-03-11 16:13:52 102.0000 /min Resp rate 2019-03-11 16:13:52 16.0000 /min BP sys 2019-03-11 16:13:52 129.0000 mm[Hg] Body temperature 2019-03-11 16:13:52 97.3000 [degF] Weight 2019-03-11 16:13:52 88.0000 [lb_av] BMI 2018-11-27 14:59:28 18.1900 BP fu 2018-11-27 14:59:28 76.0000 mm[Hg] Bdy height 2018-11-27 14:59:28 63.0000 [in_i] SaO2% BldA PulseOx 2018-11-27 14:59:28 98.0000 % Heart rate 2018-11-27 14:59:28 68.0000 /min Resp rate 2018-11-27 14:59:28 16.0000 /min BP sys 2018-11-27 14:59:28 126.0000 mm[Hg] Body temperature 2018-11-27 14:59:28 97.9000 [degF] Weight 2018-11-27 14:59:28 102.7000 [lb_av] BMI 2018-10-30 09:23:09 18.9500 BP fu 2018-10-30 09:23:09 88.0000 mm[Hg] Bdy height 2018-10-30 09:23:09 63.0000 [in_i] SaO2% BldA PulseOx 2018-10-30 09:23:09 96.0000 % Heart rate 2018-10-30 09:23:09 63.0000 /min Resp rate 2018-10-30 09:23:09 17.0000 /min BP sys 2018-10-30 09:23:09 149.0000 mm[Hg] Body temperature 2018-10-30 09:23:09 98.5000 [degF] Weight 2018-10-30 09:23:09 107.0000 [lb_av] BMI 2018-10-15 09:00:32 19.0600 BP fu 2018-10-15 09:00:32 73.0000 mm[Hg] Bdy height 2018-10-15 09:00:32 63.0000 [in_i] SaO2% BldA PulseOx 2018-10-15 09:00:32 95.0000 % Heart rate 2018-10-15 09:00:32 61.0000 /min Resp rate 2018-10-15 09:00:32 16.0000 /min BP sys 2018-10-15 09:00:32 124.0000 mm[Hg] Body temperature 2018-10-15 09:00:32 97.9000 [degF] Weight 2018-10-15 09:00:32 107.6000 [lb_av] BMI 2018-10-10 09:35:30 18.7800 BP fu 2018-10-10 09:35:30 78.0000 mm[Hg] Bdy height 2018-10-10 09:35:30 63.0000 [in_i] SaO2% BldA PulseOx 2018-10-10 09:35:30 98.0000 % Heart rate 2018-10-10 09:35:30 82.0000 /min Resp rate 2018-10-10 09:35:30 18.0000 /min BP sys 2018-10-10 09:35:30 116.0000 mm[Hg] Body temperature 2018-10-10 09:35:30 97.7000 [degF] Weight 2018-10-10 09:35:30 106.0000 [lb_av] BMI 2018-09-28 09:22:34 19.2400 BP fu 2018-09-28 09:22:34 71.0000 mm[Hg] Bdy height 2018-09-28 09:22:34 63.0000 [in_i] SaO2% BldA PulseOx 2018-09-28 09:22:34 97.0000 % Heart rate 2018-09-28 09:22:34 64.0000 /min Resp rate 2018-09-28 09:22:34 18.0000 /min BP sys 2018-09-28 09:22:34 124.0000 mm[Hg] Body temperature 2018-09-28 09:22:34 97.8000 [degF] Weight 2018-09-28 09:22:34 108.6000 [lb_av] BMI 2018-09-26 09:06:58 19.0600 BP fu 2018-09-26 09:06:58 76.0000 mm[Hg] Bdy height 2018-09-26 09:06:58 63.0000 [in_i] SaO2% BldA PulseOx 2018-09-26 09:06:58 97.0000 % Heart rate 2018-09-26 09:06:58 70.0000 /min Resp rate 2018-09-26 09:06:58 18.0000 /min BP sys 2018-09-26 09:06:58 142.0000 mm[Hg] Body temperature 2018-09-26 09:06:58 97.6000 [degF] Weight 2018-09-26 09:06:58 107.6000 [lb_av] BMI 2018-09-12 09:27:58 19.4500 BP fu 2018-09-12 09:27:58 75.0000 mm[Hg] Bdy height 2018-09-12 09:27:58 63.0000 [in_i] SaO2% BldA PulseOx 2018-09-12 09:27:58 98.0000 % Heart rate 2018-09-12 09:27:58 65.0000 /min Resp rate 2018-09-12 09:27:58 16.0000 /min BP sys 2018-09-12 09:27:58 117.0000 mm[Hg] Body temperature 2018-09-12 09:27:58 97.5000 [degF] Weight 2018-09-12 09:27:58 109.8000 [lb_av] BMI 2018-09-11 09:54:21 19.4100 BP fu 2018-09-11 09:54:21 69.0000 mm[Hg] Bdy height 2018-09-11 09:54:21 63.0000 [in_i] SaO2% BldA PulseOx 2018-09-11 09:54:21 99.0000 % Heart rate 2018-09-11 09:54:21 67.0000 /min Resp rate 2018-09-11 09:54:21 16.0000 /min BP sys 2018-09-11 09:54:21 129.0000 mm[Hg] Body temperature 2018-09-11 09:54:21 98.3000 [degF] Weight 2018-09-11 09:54:21 109.6000 [lb_av] BMI 2018-09-10 09:24:36 19.3800 BP fu 2018-09-10 09:24:36 81.0000 mm[Hg] Bdy height 2018-09-10 09:24:36 63.0000 [in_i] SaO2% BldA PulseOx 2018-09-10 09:24:36 96.0000 % Heart rate 2018-09-10 09:24:36 71.0000 /min Resp rate 2018-09-10 09:24:36 18.0000 /min BP sys 2018-09-10 09:24:36 145.0000 mm[Hg] Body temperature 2018-09-10 09:24:36 96.4000 [degF] Weight 2018-09-10 09:24:36 109.4000 [lb_av] BMI 2018-08-27 09:34:27 19.5200 BP fu 2018-08-27 09:34:27 71.0000 mm[Hg] Bdy height 2018-08-27 09:34:27 63.0000 [in_i] SaO2% BldA PulseOx 2018-08-27 09:34:27 98.0000 % Heart rate 2018-08-27 09:34:27 78.0000 /min Resp rate 2018-08-27 09:34:27 14.0000 /min BP sys 2018-08-27 09:34:27 119.0000 mm[Hg] Body temperature 2018-08-27 09:34:27 98.6000 [degF] Weight 2018-08-27 09:34:27 110.2000 [lb_av] BMI 2018-08-13 09:25:09 20.8700 BP fu 2018-08-13 09:25:09 65.0000 mm[Hg] Bdy height 2018-08-13 09:25:09 63.0000 [in_i] SaO2% BldA PulseOx 2018-08-13 09:25:09 98.0000 % Heart rate 2018-08-13 09:25:09 92.0000 /min Resp rate 2018-08-13 09:25:09 16.0000 /min BP sys 2018-08-13 09:25:09 132.0000 mm[Hg] Body temperature 2018-08-13 09:25:09 96.1000 [degF] Weight 2018-08-13 09:25:09 117.8000 [lb_av] BMI 2018-08-09 15:21:53 20.9400 BP fu 2018-08-09 15:21:53 68.0000 mm[Hg] Bdy height 2018-08-09 15:21:53 63.0000 [in_i] SaO2% BldA PulseOx 2018-08-09 15:21:53 97.0000 % Heart rate 2018-08-09 15:21:53 95.0000 /min Resp rate 2018-08-09 15:21:53 16.0000 /min BP sys 2018-08-09 15:21:53 135.0000 mm[Hg] Body temperature 2018-08-09 15:21:53 98.8000 [degF] Weight 2018-08-09 15:21:53 118.2000 [lb_av] BMI 2018-07-26 10:33:56 20.2300 BP fu 2018-07-26 10:33:56 68.0000 mm[Hg] Bdy height 2018-07-26 10:33:56 63.0000 [in_i] Heart rate 2018-07-26 10:33:56 74.0000 /min Resp rate 2018-07-26 10:33:56 16.0000 /min BP sys 2018-07-26 10:33:56 127.0000 mm[Hg] Body temperature 2018-07-26 10:33:56 97.4000 [degF] Weight 2018-07-26 10:33:56 114.2000 [lb_av]
== END ==
LOC: RAD 09:06
PROVIDERS: ATTEND Internal Medicine Hematology & Oncology
DX: C18.9 Malignant neoplasm of colon, unspecified (principal); C48.1 Malignant neoplasm of specified parts of peritoneum; K76.9 Liver disease, unspecified
CPT/HCPCS: 71260; 74177; 82565

== ENCOUNTER 2020-02-02 01:27 | Emergency (ER) | payer BC ==
[2020-02-02 02:41] LABS: ABSOLUTE LYMPHOCYTES (AUTO) 1.2 10^3/uL (0.5-4.7); ABSOLUTE MONOCYTES (AUTO) 0.5 10^3/uL (0.1-1.4); BASOPHILS % (AUTO) 0.5 % (0-2); EOSINOPHILS % (AUTO) 0.2 % (0-6); HEMATOCRIT 32.6 % (36.0-47.0); HEMOGLOBIN 10.7 g/dL (12.0-15.5); LYMPHOCYTES % (AUTO) 13.2 % (13-45); MEAN CORPUSCULAR HEMOGLOBIN 25.8 pg (27.0-33.4); MEAN CORPUSCULAR VOLUME 78 fl (80-97); PLATELET COUNT 569 10^3/uL (150-450); RED BLOOD COUNT 4.16 10^6/uL (3.72-5.28); RED CELL DISTRIBUTION WIDTH 16.1 % (11.5-14.0); SEGMENTED NEUTROPHILS % (AUTO) 80.1 % (42-78); TOTAL CELLS COUNTED % (AUTO) 100 %; WHITE BLOOD COUNT 8.7 10^3/uL (4.0-10.5)
[2020-02-02 03:04] LABS: ALKALINE PHOSPHATASE 112 U/L (38-126); ANION GAP 8 (5-19); ASPARTATE AMINO TRANSFERASE 27 U/L (14-36); BILIRUBIN,DIRECT 0.3 mg/dL (0.0-0.4); BILIRUBIN,TOTAL 0.5 mg/dL (0.2-1.3); BLOOD UREA NITROGEN 23 mg/dL (7-20); CALCIUM 9.6 mg/dL (8.4-10.2); CARBON DIOXIDE 33 mmol/L (22-30); CHLORIDE 100 mmol/L (98-107); GLUCOSE 120 mg/dL (75-110); POTASSIUM 3.4 mmol/L (3.6-5.0); TOTAL PROTEIN 7.6 g/dL (6.3-8.2)
--- NOTE | 2020-02-02 04:28 | ER Document Report ---
ED General - General TRAVEL OUTSIDE OF THE [place] IN LAST 30 DAYS: No <ULYSSES PEÑA - Last Filed: 02/02/20 08:47> <IRENA CROWLEY - Last Filed: 02/02/20 11:37> - General Chief Complaint: Nausea/Vomiting/Diarrhea Stated Complaint: FEVER/NAUSEA/VOMITING Time Seen by Provider: 02/02/20 04:26 Primary Care Provider: RC SARAH MD [Primary Care Provider] - Follow up as needed - [facility] Notes: 59-year-old female with a significant past medical history for colon cancer and extensive abdominal surgery to remove gallbladder, spleen, portion of her colon in January 01, [address] Tony to the emergency department with complaints of nausea, vomiting, and diffuse abdominal pain since Monday5 days ago. She states she is not able to keep anything down including her regular medicine. She states that she has been struggling like this since she had her abdominal surgery in [place]. She is being followed by Dr. Sarah, oncology. She states she is currently not on chemotherapy because she has not been able to tolerate it. She states she was supposed to start it on Monday. She admits that she takes morphine and fentanyl for pain control. She denies any fevers or chills. She denies any difficulty urinating. She states that she has been having diarrhea. (ULYSSES PEÑA) - Related Data Allergies/Adverse Reactions: No Known Allergies Allergy (Verified 08/23/19 07:50) Past Medical History - General Information source: Patient, Relative - Social History Smoking Status: Current Every Day Smoker Frequency of alcohol use: None Drug Abuse: None Family History: Reviewed & Not Pertinent - Past Medical History Cardiac Medical History: Reports: Hx Hypertension Denies: Hx Coronary Artery Disease, Hx Heart Attack Pulmonary Medical History: Denies: Hx Asthma, Hx Bronchitis, Hx COPD, Hx Pneumonia Neurological Medical History: Denies: Hx Cerebrovascular Accident, Hx Seizures Renal/ Medical History: Denies: Hx Peritoneal Dialysis Musculoskeletal Medical History: Denies Hx Arthritis Past Surgical History: Reports: Hx Tubal Ligation, Hx Vascular Surgery - port placement - Immunizations Hx Diphtheria, Pertussis, Tetanus Vaccination: Yes <ULYSSES PEAÑ - Last Filed: 02/02/20 08:47> Review of Systems - Review of Systems Constitutional: denies: Chills, Fever EENT: No symptoms reported Cardiovascular: denies: Chest pain, Palpitations, Heart racing, Dizziness, Lightheaded, Edema Respiratory: denies: Cough, Short of breath Gastrointestinal: See HPI, Abdominal pain, Diarrhea, Nausea, Vomiting Genitourinary: No symptoms reported Female Genitourinary: No symptoms reported Musculoskeletal: No symptoms reported Skin: No symptoms reported Hematologic/Lymphatic: No symptoms reported Neurological/Psychological: No symptoms reported -: Yes All other systems reviewed and negative <ULYSSES PEÑA - Last Filed: 02/02/20 08:47> Physical Exam - Vital signs Interpretation: Normal <ULYSSES PEÑA - Last Filed: 02/02/20 08:47> - Vital signs Vitals: Temp Pulse Resp BP Pulse Ox 98.1 F 83 17 160/84 H 95 02/02/20 01:34 02/02/20 01:34 02/02/20 01:34 02/02/20 01:34 02/02/20 01:34 - Notes Notes: PHYSICAL EXAMINATION: GENERAL: Cachectic and chronically ill-appearing female. She is laying on her left side and appears to be in pain HEAD: Atraumatic, normocephalic. EYES: Pupils equal round and reactive to light, extraocular movements intact, sclera anicteric, conjunctiva are normal. ENT: nares patent, oropharynx clear without exudates. Moist mucous membranes. NECK: Normal range of motion, supple without lymphadenopathy LUNGS: Breath sounds clear to auscultation bilaterally and equal. No wheezes rales or rhonchi. HEART: Regular rate and rhythm without murmurs ABDOMEN: Noted healed abdominal surgery incision sites. Patient has generalized tenderness to palpation throughout the abdomen. No guarding, no rebound. No masses appreciated. No CVA tenderness EXTREMITIES: Normal range of motion, no pitting or edema. No cyanosis. NEUROLOGICAL: No focal neurological deficits. Moves all extremities spontaneously and on command. PSYCH: Patient is irritable; she has a normal affect SKIN: Warm, Dry, normal turgor, no rashes or lesions noted. (ULYSSES PEÑA) Course - Laboratory Result Diagrams: 02/02/20 02:30 02/02/20 02:30 - Diagnostic Test Radiology reviewed: Image reviewed, Reports reviewed <ULYSSES PEÑA - Last Filed: 02/02/20 08:47> - Laboratory Result Diagrams: 02/02/20 02:30 02/02/20 02:30 <IRENA CROWLEY - Last Filed: 02/02/20 11:37> - Re-evaluation Re-evalutation: 02/02/20 08:[address] Farooq. We discussed CT and he agrees with plan for admission. Will call oncology, surgery, and hospitalist. Discussed patient with Dr. Hoffman -- agrees with plan for admission, he is happy to consult. Spoke with Dr. Merchant, general surgery. He looked at the scan and felt like the patient did not have a SBO. He does note she has alot of stool in her colon. His suggestion is enema and see if she feels better -- if she does, dis charge home. Updated Dr. Farooq about the plan, will call the hospitalist to discuss Spoke with Mary Santiago NP. She does not feel like the patient needs admission because she does not have IBIS. Would like for us to try enema and call them back. Also expresses that she thinks the patient would best suited to go see the surgeon who did her abdominal surgery should she not improve after the enema. 02/02/20 08:47 Discussed the patient with Mixing Roll Operator Irena Crowley. He will assume care of the p atient. Aware of CT reading as well as what patient has received for pain and antiemetics. Aware of plan for enema. He will monitor patient and then dispo accordingly. (ULYSSES PEÑA) 02/02/20 09:58 Report was received on the patient. I did evaluate the patient. I did review the chart. Patient did have a large bowel movement here. She states her nausea is completely resolved at this time. Prior provider has spoken with the hospitalist team who do not feel the patient is appropriate for admission at this time. I will attempt an oral challenge on the patient she is tolerating liquids. She wishes to try to eat. If she is able to tolerate food will disch arge home with Zofran for nausea strict return precautions. I did palpate the abdomen without eliciting significant pain or discomfort. 02/02/20 11:35 Patient has been tolerating soup and juice. Patient wishes to eat chocolate chip cookies, carrot cake or solid food. Patient states that she would be willing to have her IV out so she can walk to the cafeteria to get food. She is talking on the phone in no acute distress has had no vomiting since I took over her care. Will discharge home with Zofran for nausea, follow-up with her hematology oncology providers. Return instructions given (IRENA CROWLEY) - Vital Signs Vital signs: Temp Pulse Resp BP Pulse Ox 98.7 F 83 14 142/62 H 96 02/02/20 06:00 02/02/20 01:34 02/02/20 06:00 02/02/20 08:00 02/02/20 06:00 - Laboratory Laboratory results interpreted by me: 02/02/20 02/02/20 02/02/20 02:30 02:30 04:50 Hgb 10.7 L Hct 32.6 L MCV 78 L MCH 25.8 L RDW 16.1 H Plt Count 569 H Seg Neutrophils % 80.1 H Potassium 3.4 L Carbon Dioxide 33 H BUN 23 H Glucose 120 H Lipase 388.2 H Urine Protein 30 H Urine Ketones 20 H Discharge <ULYSSES PEÑA - Last Filed: 02/02/20 08:47> <IRENA CROWLEY - Last Filed: 02/02/20 11:37> - Discharge Clinical Impression: Vomiting Qualifiers: Vomiting type: unspecified Vomiting Intractability: non-intractable Nausea presence: with nausea Qualified Code(s): R11.2 - Nausea with vomiting, unspecified Constipation Qualifiers: Constipation type: other constipation type Qualified Code(s): K59.09 - Other constipation Condition: Stable Disposition: HOME, SELF-CARE Additional Instructions: Take the Zofran for any recurrent nausea or vomiting advance your diet slowly avoiding greasy or spicy foods or foods that are very rich. Follow-up with your hematology team by phone to discuss further evaluation and treatment. Take MiraLAX daily to help with constipation. Return for any recurrent vomiting or worsening symptoms Prescriptions: Ondansetron [Zofran Odt 4 mg Tablet] 1 - 2 tab PO Q4H PRN #15 tab.rapdis PRN Reason: For Nausea/Vomiting Referrals: RC SARAH MD [Primary Care Provider] - Follow up as needed
[2020-02-02] MEDS ORDERED: ONDANSETRON HCL INJ/PF 4 MG/2 ML SDV IV ONE (04:38)
[2020-02-02] MEDS ORDERED: RINGERS SOLUTION,LACTATED 1,000 ML IV ONE ×2 (04:38→07:49)
[2020-02-02] MEDS ORDERED: MORPHINE SULFATE 10 MG/ML INJ IV ONE (04:39)
--- NOTE | 2020-02-02 06:06 | RADIOLOGY REPORT (SQ) ---
CLINICAL HISTORY: abd pain, hx of abd cancer, vomiting COMPARISON: 01/10/2020. TECHNIQUE: CT ABDOMEN PELVIS WITH IV CONTRAST on 02/02/2020 4:38 AM FACE [facility]URL[facility] This exam was performed according to our departmental dose-optimization program, which includes automated exposure control, adjustment of the mA and/or kV according to patient size and/or use of iterative reconstruction technique. FINDINGS: There is thickening of the distal esophagus. There is mild nodular thickening of the right pleural space. Abdomen: The liver is normal in appearance. There is mild intra and extrahepatic biliary dilatation. Gallbladder is not well-seen. Stomach is distended with fluid. The pancreas and spleen are normal in appearance. There are several small right renal cyst. Adrenal glands are unremarkable. There is possible mild right hydronephrosis. Abdominal aorta is densely calcified without aneurysm. There is no free air. There is no retroperitoneal adenopathy. Pelvis: There is moderate amount of stool within the colon. There is a suture line within the left lower quadrant involving several small bowel loops. Small bowel loops are dilated. There is questionable fluid collection in the left lateral abdomen, although this could represent a small bowel loop. This measures 5.8 x 3.3 cm. Urinary bladder is unremarkable. There is no free fluid. Appendix is not seen. Skeleton: There are no acute osseous findings. No suspicious bony lesions. IMPRESSION: Suspect developing small bowel obstruction. Interval development of right pleural thickening. Underlying malignancy is not excluded.
[2020-02-02 06:31] LABS: APPEARANCE,URINE TURBID; BILIRUBIN,URINE NEGATIVE (NEGATIVE); CALCIUM OXALATE CRYSTALS,URINE MODERATE /HPF; COLOR,URINE AMBER; GLUCOSE, URINE NEGATIVE (NEGATIVE); KETONES,URINE 20 mg/dL (NEGATIVE); LEUKOCYTE ESTERASE,URINE NEGATIVE (NEGATIVE); NITRITE,URINE NEGATIVE (NEGATIVE); PROTEIN,URINE 30 mg/dL (NEGATIVE); URINE SPECIFIC GRAVITY 1.028; UROBILINOGEN,URINE NEGATIVE mg/dL (<2.0)
[2020-02-02] MEDS ORDERED: NA PHOS,M-B/NA PHOS,DI-BA (ADULT) 133 ML ENEMA PR ONE (08:15)
[2020-02-02 11:55] VITALS: BP 138/69
== END 2020-02-02 11:55 | disposition home or self-care (01) ==
LOC: ER 01:27
DX: K59.09 Other constipation (principal); R11.2 Nausea with vomiting, unspecified; R19.7 Diarrhea, unspecified; R50.9 Fever, unspecified; Z85.038 Personal history of other malignant neoplasm of large intestine; Z98.890 Other specified postprocedural states; R10.9 Unspecified abdominal pain; Z79.899 Other long term (current) drug therapy; F17.200 Nicotine dependence, unspecified, uncomplicated; I10 Essential (primary) hypertension
CPT/HCPCS: 99285; 96361; 96374; 96375; 36415; 83690; 83735; 85025; 80053; 81001; 74177; J3490; J2270; J2405; J7120

== ENCOUNTER 2020-02-05 21:30 | Emergency (ER) | payer BC ==
[2020-02-05] MEDS ORDERED: ONDANSETRON HCL INJ/PF 4 MG/2 ML SDV IV ONE ×2 (21:37→22:31)
[2020-02-05] MEDS ORDERED: NORMAL SALINE 1000 ML 1,000 ML IV ONE (21:37)
--- NOTE | 2020-02-05 21:41 | ER Document Report ---
ED Medical Screen (RME) - General Stated Complaint: VOMITING DIARRHEA STAGE 4 CANCER Time Seen by Provider: 02/05/20 21:36 Primary Care Provider: RC ORDOÑEZ MD [Primary Care Provider] - Follow up as needed Notes: HPI: 59-year-old female who has stage IV cancer who states she had chemotherapy on Monday follows with Dr. Braga presenting for vomiting and diarrhea. States that she had vomiting and diarrhea over the last 2 days. Reports some general abdominal pain. States she has not been able to keep any of her medicines down at home. PHYSICAL EXAMINATION: Patient is a poor historian. Patient is unwilling to answer questions. Patient is chronically ill-appearing. Mild tenderness through the abdomen more prominent on the right side I have greeted and performed a rapid initial assessment of this patient. A comprehensive ED assessment and evaluation of the patient, analysis of test results and completion of medical decision making process will be conducted by an additional ED providers. TRAVEL OUTSIDE OF THE [place] IN LAST 30 DAYS: No - Related Data Allergies/Adverse Reactions: No Known Allergies Allergy (Verified 08/23/19 07:50) Past Medical History - Past Medical History Cardiac Medical History: Reports: Hx Hypertension Denies: Hx Coronary Artery Disease, Hx Heart Attack Pulmonary Medical History: Denies: Hx Asthma, Hx Bronchitis, Hx COPD, Hx Pneumonia Neurological Medical History: Denies: Hx Cerebrovascular Accident, Hx Seizures Renal/ Medical History: Denies: Hx Peritoneal Dialysis Musculoskeltal Medical History: Denies Hx Arthritis Past Surgical History: Reports: Hx Tubal Ligation, Hx Vascular Surgery - port placement - Immunizations Hx Diphtheria, Pertussis, Tetanus Vaccination: Yes Doctor's Discharge - Discharge Referrals: RC ORDOÑEZ MD [Primary Care Provider] - Follow up as needed
[2020-02-05 22:02] LABS: ABSOLUTE LYMPHOCYTES (AUTO) 1.2 10^3/uL (0.5-4.7); ABSOLUTE MONOCYTES (AUTO) 0.2 10^3/uL (0.1-1.4); ABSOLUTE NEUT (AUTO) 6.5 10^3/uL (1.7-8.2); BASOPHILS % (AUTO) 0.3 % (0-2); EOSINOPHILS % (AUTO) 0.3 % (0-6); HEMATOCRIT 35.3 % (36.0-47.0); HEMOGLOBIN 11.6 g/dL (12.0-15.5); LYMPHOCYTES % (AUTO) 15.6 % (13-45); MEAN CORPUSCULAR HEMOGLOBIN 25.8 pg (27.0-33.4); MEAN CORPUSCULAR HGB CONC 32.7 g/dL (32.0-36.0); MEAN CORPUSCULAR VOLUME 79 fl (80-97); MONOCYTES % (AUTO) 2.5 % (3-13); PLATELET COUNT 536 10^3/uL (150-450); RED BLOOD COUNT 4.48 10^6/uL (3.72-5.28); RED CELL DISTRIBUTION WIDTH 16.2 % (11.5-14.0); SEGMENTED NEUTROPHILS % (AUTO) 81.3 % (42-78); TOTAL CELLS COUNTED % (AUTO) 100 %
[2020-02-05 22:15] LABS: ALBUMIN 3.9 g/dL (3.5-5.0); ALKALINE PHOSPHATASE 115 U/L (38-126); ANION GAP 6 (5-19); ASPARTATE AMINO TRANSFERASE 29 U/L (14-36); BILIRUBIN,DIRECT 0.2 mg/dL (0.0-0.4); BILIRUBIN,TOTAL 0.6 mg/dL (0.2-1.3); BLOOD UREA NITROGEN 16 mg/dL (7-20); CALCIUM 9.8 mg/dL (8.4-10.2); CARBON DIOXIDE 33 mmol/L (22-30); CHLORIDE 100 mmol/L (98-107); GLUCOSE 97 mg/dL (75-110); POTASSIUM 3.8 mmol/L (3.6-5.0); TOTAL PROTEIN 7.2 g/dL (6.3-8.2)
--- NOTE | 2020-02-05 22:22 | ER Document Report ---
ED GI/ - General Chief Complaint: Nausea/Vomiting/Diarrhea Stated Complaint: VOMITING DIARRHEA STAGE 4 CANCER Time Seen by Provider: 02/05/20 21:36 Primary Care Provider: RC ORDOÑEZ MD [Primary Care Provider] - Follow up as needed Mode of Arrival: Medic Information source: Patient Notes: 02/05/20 21:43 - ED Nursing Note by DAKOTAHBRADLEY Acct Num: [id number] : 1960 Patient Age: 59 pt has stage 4 cancer. states she sleeps most of the time. monday she had chemo, and diarrhea on monday and vomiting on monday. pt did call md and was told to come to er, [facility] NOT[facility] 59-year-old female arrives with chief complaint of having vomiting and diarrhea since having chemo on Monday. Patient has stage IV cancer. She is accompanied by her who is main caregiver. Patient herself reports she had colon cancer in November 2017 but it was not fully diagnosed until May 2018 when it was stage IV cancer. She just received chemo on Monday and all day yesterday was having yellow diarrhea. Today she has been having vomiting green bile is material. Her last CT scan revealed a new fluid collection in the left gutter and also perineum thickening around the liver inferior lobe. Today she complains of right lower quadrant abdominal pain. She also reported earlier today she had right upper chest pointing to her clavicle as being painful like a stabbing sensation. She reports morphine for usually helps with her abdominal pain and she already received Zofran IV by nursing staff today. TRAVEL OUTSIDE OF THE [place] IN LAST 30 DAYS: No - HPI Patient complains to provider of: Abdominal pain, Diarrhea, Vomiting Onset: This morning Timing/Duration: Persistent Quality of pain: Achy Severity at maximum: Moderate Severity in ED: Moderate Pain Level: 2 Location: RLQ - Related Data Allergies/Adverse Reactions: No Known Allergies Allergy (Verified 08/23/19 07:50) Home Medications: fentanyl patches, morphine, bp med Past Medical History - General Information source: Patient, Relative - - Social History Smoking Status: Current Every Day Smoker Cigarette use (# per day): Yes Chew tobacco use (# tins/day): No Smoking Education Provided: Yes Frequency of alcohol use: None Drug Abuse: None Lives with: Family Family History: Reviewed & Not Pertinent Patient has suicidal ideation: No Patient has homicidal ideation: No - Past Medical History Cardiac Medical History: Reports: Hx Hypertension Denies: Hx Coronary Artery Disease, Hx Heart Attack Pulmonary Medical History: Denies: Hx Asthma, Hx Bronchitis, Hx COPD, Hx Pneumonia Neurological Medical History: Denies: Hx Cerebrovascular Accident, Hx Seizures Renal/ Medical History: Denies: Hx Peritoneal Dialysis Musculoskeletal Medical History: Denies Hx Arthritis Past Surgical History: Reports: Hx Tubal Ligation, Hx Vascular Surgery - port pl acement - Immunizations Hx Diphtheria, Pertussis, Tetanus Vaccination: Yes Review of Systems - Review of Systems Constitutional: No symptoms reported, Malaise, Weakness, Weight loss - "50 pound weight loss since her surgery" per history, Recent illness EENT: See HPI, Difficulty swallowing Cardiovascular: See HPI, Chest pain Respiratory: No symptoms reported Gastrointestinal: See HPI, Abdominal pain, Diarrhea, Nausea, Vomiting Genitourinary: No symptoms reported Female Genitourinary: No symptoms reported Musculoskeletal: No symptoms reported Skin: No symptoms reported Hematologic/Lymphatic: No symptoms reported Neurological/Psychological: See HPI, Weakness -: Yes All other systems reviewed and negative Physical Exam - Vital signs Vitals: Temp Pulse BP Pulse Ox 97.6 F 90 190/98 H 95 02/05/20 21:41 02/05/20 21:41 02/05/20 21:41 02/05/20 21:41 Interpretation: Hypertensive - General General appearance: Appears well, Alert - HEENT Head: Normocephalic, Atraumatic Eyes: Normal Conjunctiva: Normal Cornea: Normal Extraocular movements intact: Yes Pupils: PERRL Ears: Normal Nasal: Normal Mouth/Lips: Normal Mucous membranes: Dry Pharynx: Normal Neck: Normal - Respiratory Respiratory status: No respiratory distress Chest status: Nontender Breath sounds: Normal Chest palpation: Normal - Cardiovascular Rhythm: Regular Heart sounds: Normal auscultation Murmur: No - Abdominal Inspection: Other - Very cachectic appearance of abdomen and entire body habitus. Distension: No distension Bowel sounds: Hyperactive Tenderness: Tender - Right lower quadrant Organomegaly: No organomegaly - Rectal Hemorrhoids: Other - Deferred - Genitourinary External exam: Normal - Normal external female genitalia with in room. - Back Back: Normal, Nontender - Extremities General upper extremity: Normal inspection, Nontender, Normal color, Normal ROM, Normal temperature General lower extremity: Normal inspection, Nontender, Normal color, Normal ROM, Normal temperature, Normal weight bearing. No: Ernesto's sign - Neurological Neuro grossly intact: Yes Cognition: Normal Orientation: AAOx4 [place] Coma Scale Eye Opening: Spontaneous [place] Coma Scale Verbal: Oriented [place] Coma Scale Motor: Obeys Commands [place] Coma Scale Total: 15 Speech: Normal Motor strength normal: LUE, RUE, LLE, RLE Sensory: Normal - Psychological Associated symptoms: Normal affect, Normal mood - Skin Skin Temperature: Warm Skin Moisture: Dry Skin Color: Normal Course - Vital Signs Vital signs: Temp Pulse Resp BP Pulse Ox 97.6 F 90 190/98 H 95 02/05/20 21:41 02/05/20 21:41 02/05/20 21:41 02/05/20 21:41 - Laboratory Results Result Diagrams: 02/05/20 21:48 02/05/20 21:48 Laboratory Results Interpreted: 02/05/20 02/05/20 21:48 21:48 Hgb 11.6 L Hct 35.3 L MCV 79 L MCH 25.8 L RDW 16.2 H Plt Count 536 H [place] % (Auto) 2.5 L Seg Neutrophils % 81.3 H Carbon Dioxide 33 H Lipase 318.5 H Critical Laboratory Results Reviewed: Yes Attending or Supervising Physician who Reviewed Labs: JOCELYNE ORDAZ JR - Radiology Results Radiology Results Interpreted: 02/06/20 01:30 Dr. Hurley radiologist read this abdominal series Critical Radiology Results Reviewed: Yes Attending or Supervising Physician who Reviewed Radiology: JOCELYNE ORDAZ JR Critical Care Note - Critical Care Note Comments: I discussed findings with patient and her . She was seen here by Dr. Braga. Patient had chemotherapy on Monday through her left-sided port. She reports she has been having pain in her right groin to her right lower ribs. She was informed of the effusion of her right chest per radiology. She also was advised to follow-up with Dr. Braga tomorrow and advised her of these findings. Discharge - Discharge Clinical Impression: H/O colon cancer, stage IV, Dehydration, right lung effusion basilar Diarrhea Qualifiers: Diarrhea type: unspecified type Qualified Code(s): R19.7 - Diarrhea, unspecified Vomiting Qualifiers: Vomiting type: unspecified Vomiting Intractability: unspecified Nausea presence: unspecified Qualified Code(s): R11.10 - Vomiting, unspecified Hypertension Qualifiers: Hypertension type: unspecified Qualified Code(s): I10 - Essential (primary) hypertension Disposition: HOME, SELF-CARE Referrals: RC ORDOÑEZ MD [Primary Care Provider] - Follow up as needed
[2020-02-05] MEDS ORDERED: MORPHINE SULFATE 10 MG/ML INJ IV ONE (22:31)
[2020-02-05] MEDS ORDERED: NORMAL SALINE 1000 ML 1,000 ML IV PRN (22:34)
--- NOTE | 2020-02-05 23:43 | RADIOLOGY REPORT (SQ) ---
ACUTE ABDOMINAL SERIES: 02/05/2020 10:39 PM PROJ MGR COMPARISON: Chest radiograph from 10/28/2018 TECHNIQUE: A PA view of the chest was obtained with upright and supine views of the abdomen. HISTORY: 49-year old with vomiting, diarrhea. FINDINGS: The cardiomediastinal silhouette is normal in size. No pneumothorax is seen. There are airspace opacities seen at the right lung base. There is blunting of the right costophrenic angle suggestive of a trace right effusion. A left subclavian Zcolzi-b-Tolk catheter tip projects near the SVC/right atrial junction. Atherosclerotic calcifications are seen at the aortic arch. The visualized bowel gas pattern is nonspecific and nonobstructive. No free air is seen beneath the hemidiaphragms. No abnormal intraabdominal calcifications are seen. There are no findings to suggest organomegaly. IMPRESSION: There are airspace opacities at the right lung base associated with trace right effusion. The bowel gas pattern is nonobstructive and nonspecific.
[2020-02-06] MEDS ORDERED: MORPHINE SULFATE 10 MG/ML INJ IV ONE (01:47)
[2020-02-06 02:21] VITALS: BP 134/73
== END 2020-02-06 02:50 | disposition home or self-care (01) ==
LOC: ER 21:30
DX: R11.2 Nausea with vomiting, unspecified (principal); R19.7 Diarrhea, unspecified; I10 Essential (primary) hypertension; E86.0 Dehydration; J90 Pleural effusion, not elsewhere classified; C18.9 Malignant neoplasm of colon, unspecified; Z79.899 Other long term (current) drug therapy
CPT/HCPCS: 96376; 99284; 96361 ×2; 96374; 96375; 36415; 83690; 85025; 80053; 74022; J2270 ×2; J2405; J7030

== ENCOUNTER 2020-02-09 12:27 | Inpatient (IN) | payer BC ==
--- NOTE | 2020-02-09 13:41 | ER Document Report ---
ED General - General Chief Complaint: Nausea/Vomiting Stated Complaint: VOMITING Time Seen by Provider: 02/09/20 13:22 Primary Care Provider: GARLAND STEINER MD [Primary Care Provider] - Follow up as needed Notes: Patient is a 59-year-old female who presents emergency department with a chief complaint of abdominal pain, nausea, vomiting that has been going on since earlier this month. Patient has history of colon cancer and had her gallbladder, a portion of her colon, and her spleen removed. Patient had a dose of chemotherapy on Monday, which was 6 days ago. States that she has not felt well since then. Patient continues to vomit and have pain. TRAVEL OUTSIDE OF THE [place] IN LAST 30 DAYS: No - Related Data Allergies/Adverse Reactions: No Known Allergies Allergy (Verified 02/09/20 14:55) Past Medical History - Social History Smoking Status: Current Every Day Smoker Frequency of alcohol use: None Drug Abuse: Marijuana Family History: Reviewed & Not Pertinent Patient has homicidal ideation: No - Past Medical History Cardiac Medical History: Reports: Hx Hypertension Denies: Hx Coronary Artery Disease, Hx Heart Attack Pulmonary Medical History: Denies: Hx Asthma, Hx Bronchitis, Hx COPD, Hx Pneumonia Neurological Medical History: Denies: Hx Cerebrovascular Accident, Hx Seizures Renal/ Medical History: Denies: Hx Peritoneal Dialysis Musculoskeletal Medical History: Denies Hx Arthritis Past Surgical History: Reports: Hx Tubal Ligation, Hx Vascular Surgery - port placement - Immunizations Hx Diphtheria, Pertussis, Tetanus Vaccination: Yes Review of Systems - Review of Systems Notes: REVIEW OF SYSTEMS: CONSTITUTIONAL : Denies recent illness. Denies recent unintentional weight loss. Denies fever, chills, or sweats. EENT: Denies eye, ear, throat, or mouth pain, discharge, or symptoms. Denies nasal or sinus congestion. CARDIOVASCULAR: Denies chest pain. RESPIRATORY: Denies shortness of breath, cough, congestion, difficulty breathing, or wheezing. GASTROINTESTINAL: See HPI. GENITOURINARY: Denies difficulty urinating, burning, blood in urine, urgency or frequency. MUSCULOSKELETAL: Denies neck and back pain. Denies joint pain or swelling. SKIN: Denies rash, itchiness, or lesions HEMATOLOGIC : Denies easy bruising or bleeding. LYMPHATIC: Denies swollen, painful, enlarged glands. NEUROLOGICAL: Denies no numbness or tingling denies weakness. Denies headache. Denies altered mental status. Denies alteration in speech. PSYCHIATRIC: Denies stress, anxiety, alteration in sleep patterns, or depression. All other systems reviewed and negative. Physical Exam - Vital signs Vitals: Temp Pulse Resp BP Pulse Ox 98.2 F 79 20 126/55 H 94 02/09/20 12:37 02/09/20 12:37 02/09/20 12:37 02/09/20 12:37 02/09/20 12:37 - Notes Notes: PHYSICAL EXAMINATION: GENERAL: Appears well, healthy, well-nourished, no acute distress. HEAD: Normocephalic, atraumatic. EYES: PERRL, conjunctiva normal, all extraocular movements intact, sclera nonicteric ENT: Moist mucous membranes. NECK: Supple, no noticeable swelling, redness, rash. Normal range of motion. LUNGS: Equal breath sounds bilaterally and clear to auscultation. No wheezes rales or rhonchi. CARDIOVASCULAR: S1-S2, regular rate, regular rhythm. Radial pulses 2+, normal. ABDOMEN: Normoactive bowel sounds. Firm mid lower abdomen. EXTREMITIES: Normal strength and range of motion, no pitting or edema. No cyanosis. NEUROLOGICAL: Moves all extremities upon command. Strength 5/5 in all extremities. PSYCH: Normal mood, normal affect. SKIN: Warm, dry. No rash, lesions, ulcerations noted. Normal skin turgor. Course - Re-evaluation Re-evalutation: 02/09/20 14:[address] Sarah, the patient's oncologist. Due to the patient having nausea and vomiting for about 2 weeks, she is requesting the patient be admitted to the hospital. Will await labs and I will call the hospitalist when labs have resulted. 02/09/20 16:34 Hematology shows an anemia of 9.9. This was an almost two-point drop from 4 days ago, although the patient did receive IV fluids on an outpatient basis from Dr. Braga. Chemistries show potassium of 2.6, which I ordered potassium for her. Lipase is slightly elevated. Protein and albumin are low. 02/09/20 17:38 Dr. Siegel has evaluated the patient and the patient will be admitted to the medical floor on telemetry. - Vital Signs Vital signs: Temp Pulse Resp BP Pulse Ox 98.2 F 79 17 155/63 H 93 02/09/20 12:37 02/09/20 12:37 02/09/20 14:52 02/09/20 14:52 02/09/20 14:52 - Laboratory Results Result Diagrams: 02/09/20 14:50 02/09/20 14:50 Laboratory Results Interpreted: 02/09/20 02/09/20 14:50 14:50 Hgb 9.9 L Hct 30.0 L MCV 79 L MCH 25.9 L RDW 16.4 H [place] % (Auto) 2.3 L Potassium 2.6 L* Carbon Dioxide 34 H Anion Gap 2 L Calcium 7.9 L Total Protein 5.2 L Albumin 2.8 L Lipase 401.9 H Critical Laboratory Results Reviewed: Yes Attending or Supervising Physician who Reviewed Labs: UDAY FRANCIS - Radiology Results Critical Radiology Results Reviewed: No Critical Results Discharge - Discharge Clinical Impression: Dehydration, H/O colon cancer, stage IV Vomiting Qualifiers: Vomiting type: unspecified Vomiting Intractability: unspecified Nausea presence: with nausea Qualified Code(s): R11.2 - Nausea with vomiting, unspecified Condition: Stable Disposition: ADMITTED INPATIENT Admitting Provider: hCristal (Hospitalist) Unit Admitted: Telemetry Referrals: GARLAND STEINER MD [Primary Care Provider] - Follow up as needed
[2020-02-09] MEDS ORDERED: NORMAL SALINE 1000 ML 1,000 ML IV ONE (14:06)
[2020-02-09] MEDS ORDERED: ONDANSETRON HCL INJ/PF 4 MG/2 ML SDV IV ONE (14:06)
[2020-02-09] MEDS ORDERED: MORPHINE SULFATE 10 MG/ML INJ IV ONE (14:07)
[2020-02-09 15:16] LABS: ABSOLUTE LYMPHOCYTES (AUTO) 1.7 10^3/uL (0.5-4.7); ABSOLUTE MONOCYTES (AUTO) 0.2 10^3/uL (0.1-1.4); ABSOLUTE NEUT (AUTO) 4.6 10^3/uL (1.7-8.2); BASOPHILS % (AUTO) 0.3 % (0-2); EOSINOPHILS % (AUTO) 0.2 % (0-6); HEMOGLOBIN 9.9 g/dL (12.0-15.5); LYMPHOCYTES % (AUTO) 26.3 % (13-45); MEAN CORPUSCULAR HEMOGLOBIN 25.9 pg (27.0-33.4); MEAN CORPUSCULAR HGB CONC 32.9 g/dL (32.0-36.0); MEAN CORPUSCULAR VOLUME 79 fl (80-97); MONOCYTES % (AUTO) 2.3 % (3-13); PLATELET COUNT 310 10^3/uL (150-450); RED BLOOD COUNT 3.82 10^6/uL (3.72-5.28); RED CELL DISTRIBUTION WIDTH 16.4 % (11.5-14.0); SEGMENTED NEUTROPHILS % (AUTO) 70.9 % (42-78); TOTAL CELLS COUNTED % (AUTO) 100 %; WHITE BLOOD COUNT 6.6 10^3/uL (4.0-10.5)
[2020-02-09 15:29] LABS: ALBUMIN 2.8 g/dL (3.5-5.0); ALKALINE PHOSPHATASE 88 U/L (38-126); ASPARTATE AMINO TRANSFERASE 22 U/L (14-36); BILIRUBIN,DIRECT 0.2 mg/dL (0.0-0.4); BILIRUBIN,TOTAL 0.4 mg/dL (0.2-1.3); BLOOD UREA NITROGEN 17 mg/dL (7-20); CALCIUM 7.9 mg/dL (8.4-10.2); GLUCOSE 96 mg/dL (75-110); TOTAL PROTEIN 5.2 g/dL (6.3-8.2)
[2020-02-09 15:34] LABS: CARBON DIOXIDE 34 mmol/L (22-30); CHLORIDE 103 mmol/L (98-107)
[2020-02-09 15:39] LABS: ANION GAP 2 (5-19); POTASSIUM 2.6 mmol/L (3.6-5.0)
[2020-02-09] MEDS: POTASSI CL 20 MEQ/50 ML RIDER 20 MEQ/50 ML RTUPB IV SCH ×2 (16:48→17:58)
[2020-02-09] MEDS ORDERED: DEXTROSE 5%-LACTATED RINGERS 1,000 ML IV PRN (17:50)
[2020-02-09] MEDS ORDERED: DEXAMETHASONE SOD PHOSPHATE INJ 4 MG/1 ML VIAL IV SCH (18:00)
--- NOTE | 2020-02-09 18:19 | PDOC H&P ---
History of Present Illness Admission Date/PCP: 02/09/20 17:47 GARLAND STEINER MD History of Present Illness: PEPE ELIZABETH is a 59 year old female with a history of colon cancer status post bowel resection and also a history of a lung cancer which I think may have just been recently diagnosed. She had a PET/CT done a few months ago which showed a subpleural nodule. She was reimaged a couple of months later and it appeared to have grown. She has started chemotherapy again. She had chemotherapy a week ago. The next day she developed diarrhea which she said lasted all day. Then on the day after, Monday of last week, she began to develop nausea and vomiting. She has had nausea and vomiting off and on ever since that time. She has not been able to keep anything down. She is not had any more diarrhea. She says she is not been passing any gas but her abdomen is not swollen or distended. She has Zofran and olanzapine at home for nausea but she does not think she is ever been able to keep any of it down long enough for it to have an effect. She has been in contact with Dr. Sarah's office throughout all of this, and today Dr. Sarah recommended that she come to the hospital for evaluation. Apparently she went to the clinic, I believe she said on Monday, and got some fluids and IV antiemetics. Her potassium was noted to be low and she continues to vomit in the ER. Past Medical History Cardiac Medical History: Reports: Hypertension Denies: Coronary Artery Disease, Myocardial Infarction Pulmonary Medical History: Denies: Asthma, Bronchitis, Chronic Obstructive Pulmonary Disease (COPD), Pneumonia Neurological Medical History: Denies: Seizures Musculoskeltal Medical History: Denies: Arthritis Hematology: Denies: Anemia Past Surgical History Past Surgical History: Reports: Tubal Ligation, Vascular Surgery - port placement Social History Smoking Status: Current Every Day Smoker Family History Family History: Reviewed & Not Pertinent Parental Family History Reviewed: No - Unknown Children Family History Reviewed: Unknown Sibling(s) Family History Reviewed.: Unknown Medication/Allergy Home Medications: Metoprolol Succinate [Toprol Xl] 25 mg PO DAILY 04/04/18 Oxycodone HCl [Oxy-Ir 5 mg Tablet] 5 mg PO ASDIR PRN 06/27/19 Amlodipine Besylate [Norvasc 5 mg Tablet] 5 mg PO DAILY 07/03/19 Diphenoxylate HCl/Atrop Sulf [Lomotil 2.5 mg Tablet] 1 tab PO PRN PRN 08/20/19 Loperamide HCl [Imodium A-D] 2 mg PO PRN PRN 08/20/19 Pantoprazole Sodium [Protonix [address] Tablet] 20 mg PO DAILY 08/20/19 Ondansetron [Zofran Odt 4 mg Tablet] 1 - 2 tab PO Q4H PRN #15 tab.rapdis 02/02/20 Allergies/Adverse Reactions: No Known Allergies Allergy (Verified 02/09/20 14:55) Review of Systems All systems: reviewed and no additional remarkable complaints except as stated - All systems were reviewed and were negative except as noted in the HPI Physical Exam Vital Signs: Temp Pulse Resp BP Pulse Ox 98.2 F 79 17 155/63 H 93 02/09/20 12:37 02/09/20 12:37 02/09/20 14:52 02/09/20 14:52 02/09/20 14:52 Intake & Output 02/08/20 02/09/20 02/10/20 06:59 06:59 06:59 Intake Total 1050 Balance 1050 Weight 34 kg General appearance: PRESENT: cooperative, disheveled, mild distress, thin, other - Cantankerous Head exam: PRESENT: atraumatic, normocephalic Eye exam: PRESENT: EOMI, PERRLA. ABSENT: conjunctival injection, nystagmus, scleral icterus Ear exam: PRESENT: normal external ear exam Mouth exam: PRESENT: dry mucosa, neck supple Teeth exam: PRESENT: poor dentation Neck exam: PRESENT: full ROM. ABSENT: carotid bruit, JVD, lymphadenopathy, meningismus, tenderness, thyromegaly Respiratory exam: PRESENT: clear to auscultation dominic, symmetrical, unlabored. ABSENT: accessory muscle use, chest wall tenderness, crackles, prolonged expiratory phas, rhonchi, tachypnea, wheezes Cardiovascular exam: PRESENT: RRR, +S1, +S2 Pulses: PRESENT: normal carotid pulses Vascular exam: PRESENT: normal capillary refill GI/Abdominal exam: PRESENT: hyperactive bowel sounds, soft, tenderness. ABSENT: distended, guarding, rebound Extremities exam: ABSENT: clubbing, pedal edema Musculoskeletal exam: PRESENT: normal inspection. ABSENT: deformity Neurological exam: PRESENT: alert, awake, oriented to person, oriented to place, oriented to situation, CN II-XII grossly intact. ABSENT: motor sensory deficit Psychiatric exam: PRESENT: flat affect Skin exam: PRESENT: dry, warm Results Laboratory Results: 02/09/20 14:50 02/09/20 14:50 02/09/20 02/09/20 02/09/20 14:50 14:50 14:50 WBC 6.6 RBC 3.82 Hgb 9.9 L Hct 30.0 L MCV 79 L MCH 25.9 L MCHC 32.9 RDW 16.4 H Plt Count 310 Seg Neutrophils % 70.9 Sodium 138.9 Potassium 2.6 L* Chloride 103 Carbon Dioxide 34 H Anion Gap 2 L BUN 17 Creatinine 0.53 Est GFR ( Amer) > 60 Glucose 96 Calcium 7.9 L Magnesium 1.8 Total Bilirubin 0.4 AST 22 Alkaline Phosphatase 88 Total Protein 5.2 L Albumin 2.8 L Lipase 401.9 H Assessment and Plan - Diagnosis (1) Chemotherapy induced nausea and vomiting Is this a current diagnosis for this admission?: Yes (2) Hypokalemia due to excessive gastrointestinal loss of potassium Is this a current diagnosis for this admission?: Yes (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 I checked her magnesium and it was normal. We will repeat a metabolic panel in the morning to see if she needs more potassium. Going to give her some IV Decadron. We will also give IV Zofran, and will give some scheduled doses of IM olanzapine. We will let her have clear liquids whenever she feels like she can tolerate it. - Time Time Spent with patient: 35 or more minutes Anticipated Discharge Disposition: Home, Self Care Anticipated Discharge Timeframe: Unknown - Inpatient Certification Based on my medical assessment, after consideration of the patient's comorbidities, presenting symptoms, or acuity I expect that the services needed warrant INPATIENT care.: Yes I certify that my determination is in accordance with my understanding of Medicare's requirements for reasonable and necessary INPATIENT services [42 CFR 412.3e].: Yes Medical Necessity: Failure to Improve With Outpatient Therapy, Significant Comorbidiites Make Outpatient Treatment Too Risky, Need Close Monitoring Due to Risk of Patient Decompensation, Need For IV Fluids, Need For Continuous Te lemetry Monitoring, Risk of Complication if Not Cared For in Hospital
[2020-02-09 18:27] LABS: AMORPHOUS SEDIMENT,URINE TRACE /HPF; APPEARANCE,URINE TURBID; BILIRUBIN,URINE NEGATIVE (NEGATIVE); COLOR,URINE AMBER; GLUCOSE, URINE NEGATIVE (NEGATIVE); KETONES,URINE TRACE mg/dL (NEGATIVE); LEUKOCYTE ESTERASE,URINE NEGATIVE (NEGATIVE); NITRITE,URINE NEGATIVE (NEGATIVE); PROTEIN,URINE 30 mg/dL (NEGATIVE); URINE SPECIFIC GRAVITY 1.016; UROBILINOGEN,URINE NEGATIVE mg/dL (<2.0)
[2020-02-09] MEDS: ONDANSETRON HCL INJ/PF 4 MG/2 ML SDV IV PRN (19:40)
[2020-02-09] MEDS ORDERED: OLANZAPINE INJ/PF 10 MG SDV IM SCH (22:00)
[2020-02-09] MEDS: DEXAMETHASONE SOD PHOSPHATE INJ 4 MG/1 ML VIAL IV SCH (23:18)
[2020-02-09] MEDS ORDERED: OLANZAPINE INJ/PF 10 MG SDV IM ONE (23:19)
[2020-02-10] MEDS: DEXAMETHASONE SOD PHOSPHATE INJ 4 MG/1 ML VIAL IV SCH ×3 (07:46→21:28)
[2020-02-10 08:46] LABS: BLOOD UREA NITROGEN 23 mg/dL (7-20); CALCIUM 8.7 mg/dL (8.4-10.2); CARBON DIOXIDE 32 mmol/L (22-30); CHLORIDE 104 mmol/L (98-107); GLUCOSE 144 mg/dL (75-110); POTASSIUM 3.4 mmol/L (3.6-5.0)
[2020-02-10 08:58] LABS: ANION GAP 4 (5-19)
[2020-02-10 09:15] LABS: HEMATOCRIT 30.8 % (36.0-47.0); HEMOGLOBIN 10.1 g/dL (12.0-15.5); MEAN CORPUSCULAR HEMOGLOBIN 25.4 pg (27.0-33.4); MEAN CORPUSCULAR HGB CONC 32.6 g/dL (32.0-36.0); MEAN CORPUSCULAR VOLUME 78 fl (80-97); PLATELET COUNT 355 10^3/uL (150-450); RED BLOOD COUNT 3.96 10^6/uL (3.72-5.28); RED CELL DISTRIBUTION WIDTH 16.4 % (11.5-14.0)
--- NOTE | 2020-02-10 09:20 | Progress Note ---
Provider Note Provider Note: Zyprexa was ordered for chemotherapy-induced nausea and vomiting, not for any history of psychiatric or behavioral disturbance. She had been described the p.o. version at home by Dr. Sarah, but could not tolerate p.o. on admission, which is why the IM version was ordered. It has since been re-ordered.
[2020-02-10] MEDS: COLESTIPOL HCL 1 GM TABLET PO SCH ×2 (10:18→18:37)
[2020-02-10] MEDS: PANTOPRAZOLE SODIUM 40 MG VIAL IV SCH (10:18)
[2020-02-10] MEDS ORDERED: FENTANYL 50 MCG/HR PATCH.TD72 TD SCH (13:15)
[2020-02-10] MEDS: MORPHINE SULFATE 10 MG/5 ML ORAL SOLUTION UDCUP PO PRN ×3 (14:32→22:58)
[2020-02-10] MEDS: ONDANSETRON HCL INJ/PF 4 MG/2 ML SDV IV PRN (14:33)
--- NOTE | 2020-02-10 16:05 | PDOC PROGRESS REPORT ---
Subjective Date:: 02/10/20 Subjective:: No adverse events overnight. The scheduled dose of olanzapine that was intended to help treat her chemotherapy-induced nausea and vomiting was not given last night because the nurse seems to have believed that it was ordered for psychiatric purposes, and the patient has not had any sort of psychiatric symptoms. I have reiterated to staff that when this medication was ordered for her as an outpatient, it was not ordered for psychiatric purposes, it was ordered for her nausea. It was also ordered inpatient to treat nausea and not any psychiatric condition. The patient has shown some response to steroids and is still nauseated but less so today. Reason For Visit: INTRACTABLE N/V, HYPOKALEMIA Physical Exam Vital Signs: Temp Pulse Resp BP Pulse Ox 98.1 F 70 18 145/61 H 97 02/10/20 14:31 02/10/20 14:31 02/10/20 08:04 02/10/20 14:31 02/10/20 14:31 Intake & Output 02/09/20 02/10/20 02/11/20 06:59 06:59 06:59 Intake Total 1100 Balance 1100 Weight 33.8 kg General appearance: PRESENT: cooperative, disheveled, no apparent distress, thin Respiratory exam: PRESENT: clear to auscultation dominic, symmetrical, unlabored. ABSENT: accessory muscle use, chest wall tenderness, crackles, prolonged expiratory phase, rhonchi, tachypnea, wheezes Cardiovascular exam: PRESENT: RRR, +S1, +S2 Pulses: PRESENT: normal carotid pulses Vascular exam: PRESENT: normal capillary refill GI/Abdominal exam: PRESENT: hyperactive bowel sounds, soft, tenderness. ABSENT: distended, guarding, rebound Extremities exam: ABSENT: clubbing, pedal edema Musculoskeletal exam: PRESENT: normal inspection. ABSENT: deformity Neurological exam: PRESENT: alert, awake, oriented to person, oriented to place, oriented to situation Psychiatric exam: PRESENT: flat affect Skin exam: PRESENT: dry, warm Results Laboratory Results: 02/10/20 09:00 02/10/20 07:30 02/09/20 02/09/20 02/10/20 14:50 17:51 07:30 WBC Cancelled RBC Cancelled Hgb Cancelled Hct Cancelled MCV Cancelled MCH Cancelled MCHC Cancelled RDW Cancelled Plt Count Cancelled Sodium Potassium Chloride Carbon Dioxide Anion Gap BUN Creatinine Est GFR ( Amer) Glucose Calcium Magnesium 1.8 Urine Color JUAN Urine Appearance TURBID Urine pH 7.0 Ur Specific [place] 1.016 Urine Protein 30 H Urine Glucose (UA) NEGATIVE Urine Ketones TRACE H Urine Blood NEGATIVE Urine Nitrite NEGATIVE Ur Leukocyte Esterase NEGATIVE Urine WBC (Auto) 3 02/10/20 02/10/20 07:30 09:00 WBC 5.0 RBC 3.96 Hgb 10.1 L Hct 30.8 L MCV 78 L MCH 25.4 L MCHC 32.6 RDW 16.4 H Plt Count 355 Sodium 140.0 Potassium 3.4 L Chloride 104 Carbon Dioxide 32 H Anion Gap 4 L BUN 23 H Creatinine 0.63 Est GFR ( Amer) > 60 Glucose 144 H Calcium 8.7 Magnesium Urine Color Urine Appearance Urine pH Ur Specific [place] Urine Protein Urine Glucose (UA) Urine Ketones Urine Blood Urine Nitrite Ur Leukocyte Esterase Urine WBC (Auto) Assessment and Plan - Diagnosis (1) Chemotherapy induced nausea and vomiting Is this a current diagnosis for this admission?: Yes (2) Hypokalemia due to excessive gastrointestinal loss of potassium Is this a current diagnosis for this admission?: Yes (3) 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 Her potassium has corrected nicely. We will continue with IV Decadron, IM olanzapine as previously noted, IV Zofran, and if she gets all of these treatments and is still nauseated we will see if there is another agent we can add that will help. We reordered her home pain medication today. - Time Time Spent with patient: 15-24 minutes Anticipated Discharge Disposition: Unknown Anticipated Discharge Timeframe: Unknown
--- NOTE | 2020-02-10 16:30 | PDOC CONSULTATION ---
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 History of Present Illness Admission Date/PCP: 02/09/20 17:47 GARLAND STEINER MD History of Present Illness: PEPE ELIZABETH is a 59 year old female who was diagnosed with peritoneal adenocarcinoma in 2018. She underwent resection and adjuvant chemotherapy with no evidence of disease until Oct 2019 when she had increased tumor markers and abdominal pain. However, at the time, scans showed no evidence of recurrence. Since that time, symptoms have progressed and most recent CT showed findings concerning for possible recurrent disease with marked elevation in tumor markers. She was started on chemotherapy FOLFIRI+Avastin on 02/03/2020. Since Oct she has had weight loss of 4 LBS and over the past 2 weeks, she has not been able to keep any food down, has had increased diarrhea, and continues to feel very poorly. IV fluids and antiemetics as outpatient have not been successful, so she was admitted for further evaluation and treatment. She is currently trying to consume a clear liquid diet. Her diarrhea has been severe o aida the last 24 hours, as she was not able to keep her colestipol down. She is due for her next cycle of chemo in 1 week, if she has recovered. Past Medical History Cardiac Medical History: Reports: Hypertension Denies: Coronary Artery Disease, Myocardial Infarction Pulmonary Medical History: Denies: Asthma, Bronchitis, Chronic Obstructive Pulmonary Disease (COPD), Pneumonia Neurological Medical History: Denies: Seizures Musculoskeltal Medical History: Denies: Arthritis Psychiatric Medical History: Denies: Depression Hematology: Denies: Anemia Past Surgical History Past Surgical History: Reports: Tubal Ligation, Vascular Surgery - port placement Social History Smoking Status: Current Every Day Smoker Family History Parental Family History Reviewed: Yes - paternal grandmother of colon cancer. Father of bone cancer Children Family History Reviewed: Yes Sibling(s) Family History Reviewed.: Yes Medication/Allergy Home Medications: Amlodipine Besylate [Norvasc 5 mg Tablet] 5 mg PO DAILY 07/03/19 Ondansetron [Zofran Odt 4 mg Tablet] 1 - 2 tab PO Q4H PRN #15 tab.rapdis 02/02/20 Colestipol HCl [Colestid 1 gm Tablet] 2 gm PO BID 02/10/20 Fentanyl [Duragesic 50 Mcg/Hr Transdermal Patch] 1 each TD Q3D 02/10/20 Metoprolol Succinate [Toprol Xl 50 mg Tab.sr] 50 mg PO DAILY 02/10/20 Morphine Sulfate 1 ml PO Q4 02/10/20 Olanzapine 10 mg PO DAILY 02/10/20 Potassium Chloride [Klor-Con M20] 20 meq PO DAILY 02/10/20 Allergies/Adverse Reactions: No Known Allergies Allergy (Verified 02/09/20 14:55) Review of Systems Constitutional: ABSENT: fever(s), headache(s) Eyes: ABSENT: visual disturbances Ears: ABSENT: hearing changes Nose, Mouth, and Throat: ABSENT: sore throat Cardiovascular: ABSENT: chest pain Respiratory: ABSENT: dyspnea Gastrointestinal: PRESENT: as per HPI Genitourinary: ABSENT: dysuria Integumentary: ABSENT: rash Neurological: PRESENT: weakness Hematologic/Lymphatic: ABSENT: easy bleeding Physical Exam Vital Signs: Temp Pulse Resp BP Pulse Ox 98.1 F 70 18 145/61 H 97 02/10/20 14:31 02/10/20 14:31 02/10/20 08:04 02/10/20 14:31 02/10/20 14:31 Intake & Output 02/09/20 02/10/20 02/11/20 06:59 06:59 06:59 Intake Total 1100 Balance 1100 Weight 33.8 kg General appearance: PRESENT: no acute distress, thin Head exam: PRESENT: normocephalic Eye exam: PRESENT: EOMI, PERRLA Mouth exam: PRESENT: tongue midline Neck exam: ABSENT: lymphadenopathy, tenderness Respiratory exam: PRESENT: clear to auscultation dominic, unlabored Cardiovascular exam: PRESENT: RRR GI/Abdominal exam: PRESENT: firm Extremities exam: ABSENT: pedal edema Musculoskeletal exam: PRESENT: normal inspection Neurological exam: PRESENT: alert, awake Psychiatric exam: PRESENT: appropriate affect Skin exam: PRESENT: normal color Results Laboratory Results: 02/10/20 09:00 02/10/20 07:30 02/09/20 02/09/20 02/10/20 14:50 17:51 07:30 WBC Cancelled RBC Cancelled Hgb Cancelled Hct Cancelled MCV Cancelled MCH Cancelled MCHC Cancelled RDW Cancelled Plt Count Cancelled Sodium Potassium Chloride Carbon Dioxide Anion Gap BUN Creatinine Est GFR ( Amer) Glucose Calcium Magnesium 1.8 Urine Color JUAN Urine Appearance TURBID Urine pH 7.0 Ur Specific [place] 1.016 Urine Protein 30 H Urine Glucose (UA) NEGATIVE Urine Ketones TRACE H Urine Blood NEGATIVE Urine Nitrite NEGATIVE Ur Leukocyte Esterase NEGATIVE Urine WBC (Auto) 3 02/10/20 02/10/20 07:30 09:00 WBC 5.0 RBC 3.96 Hgb 10.1 L Hct 30.8 L MCV 78 L MCH 25.4 L MCHC 32.6 RDW 16.4 H Plt Count 355 Sodium 140.0 Potassium 3.4 L Chloride 104 Carbon Dioxide 32 H Anion Gap 4 L BUN 23 H Creatinine 0.63 Est GFR ( Amer) > 60 Glucose 144 H Calcium 8.7 Magnesium Urine Color Urine Appearance Urine pH Ur Specific [place] Urine Protein Urine Glucose (UA) Urine Ketones Urine Blood Urine Nitrite Ur Leukocyte Esterase Urine WBC (Auto) Status: Image reviewed by me Assessment & Plan - Diagnosis (1) Chemotherapy induced nausea and vomiting Is this a current diagnosis for this admission?: Yes Plan: Cancer induced N/V/D as this started prior to her first dose of chemo, but still has been VERY difficult to treat. Continue Olanzapine daily. zofran has not helped. Reglan, phenergan contraindicated while on olanzapine. Consider ativan. (2) H/O colon cancer, stage IV Is this a current diagnosis for this admission?: Yes Plan: Chemo due again in 7 days. (3) Hypokalemia due to excessive gastrointestinal loss of potassium Is this a current diagnosis for this admission?: Yes Plan: Consider checking stool for C.dif or acute infection. Continue colestipol and replete potassium. Watch Mag. Her Lipase was mildly elevated.
[2020-02-10] MEDS: OLANZAPINE 5 MG TAB.RAPDIS PO SCH (21:28)
[2020-02-11] MEDS: DEXAMETHASONE SOD PHOSPHATE INJ 4 MG/1 ML VIAL IV SCH ×3 (05:57→21:34)
[2020-02-11 07:52] LABS: HEMATOCRIT 25.5 % (36.0-47.0); HEMOGLOBIN 8.3 g/dL (12.0-15.5); MEAN CORPUSCULAR HEMOGLOBIN 25.4 pg (27.0-33.4); MEAN CORPUSCULAR HGB CONC 32.5 g/dL (32.0-36.0); MEAN CORPUSCULAR VOLUME 78 fl (80-97); PLATELET COUNT 322 10^3/uL (150-450); RED BLOOD COUNT 3.27 10^6/uL (3.72-5.28); RED CELL DISTRIBUTION WIDTH 15.9 % (11.5-14.0); WHITE BLOOD COUNT 4.5 10^3/uL (4.0-10.5)
[2020-02-11 08:12] LABS: BLOOD UREA NITROGEN 15 mg/dL (7-20); CALCIUM 8.1 mg/dL (8.4-10.2); CARBON DIOXIDE 29 mmol/L (22-30); CHLORIDE 104 mmol/L (98-107); GLUCOSE 129 mg/dL (75-110); POTASSIUM 4.3 mmol/L (3.6-5.0)
[2020-02-11 08:18] LABS: ANION GAP 5 (5-19)
--- NOTE | 2020-02-11 08:35 | PDOC PROGRESS REPORT ---
Subjective Date:: 02/11/20 Subjective:: Patient states that she was able to tolerate liquids and a few crackers last nig ht and keep everything down. Today, she reports difficulty swallowing and acid reflux. Some sore throat as well. ROS: diarrhea has resolved with the addition of colestid. No dyspnea. Reason For Visit: INTRACTABLE N/V, HYPOKALEMIA Physical Exam Vital Signs: Temp Pulse Resp BP Pulse Ox 97.8 F 55 L 20 128/85 H 100 02/10/20 23:59 02/11/20 02:00 02/10/20 23:59 02/10/20 23:59 02/10/20 23:59 Intake & Output 02/10/20 02/11/20 02/12/20 06:59 06:59 06:59 Intake Total 1100 Balance 1100 Weight 33.8 kg 33.8 kg General appearance: PRESENT: no acute distress, thin Head exam: PRESENT: normocephalic Eye exam: PRESENT: EOMI Mouth exam: PRESENT: dry mucosa Respiratory exam: PRESENT: unlabored Neurological exam: PRESENT: alert, awake Psychiatric exam: PRESENT: appropriate affect Skin exam: PRESENT: normal color Results Laboratory Results: 02/11/20 05:50 02/11/20 05:50 02/10/20 02/10/20 02/11/20 07:30 09:00 05:50 WBC 5.0 4.5 RBC 3.96 3.27 L Hgb 10.1 L 8.3 L Hct 30.8 L 25.5 L MCV 78 L 78 L MCH 25.4 L 25.4 L MCHC 32.6 32.5 RDW 16.4 H 15.9 H Plt Count 355 322 Sodium 140.0 Potassium 3.4 L Chloride 104 Carbon Dioxide 32 H Anion Gap 4 L BUN 23 H Creatinine 0.63 Est GFR ( Amer) > 60 Glucose 144 H Calcium 8.7 02/11/20 05:50 WBC RBC Hgb Hct MCV MCH MCHC RDW Plt Count Sodium 137.7 Potassium 4.3 Chloride 104 Carbon Dioxide 29 Anion Gap 5 BUN 15 Creatinine 0.53 Est GFR ( Amer) > 60 Glucose 129 H Calcium 8.1 L Assessment & Plan - Diagnosis (1) Chemotherapy induced nausea and vomiting Is this a current diagnosis for this admission?: Yes Plan: Slowly improving. Will advance diet, add nutritional supplements and ask for calorie count and nutrition consult to help encourage weight gain during chemo. (2) H/O colon cancer, stage IV Is this a current diagnosis for this admission?: Yes Plan: She is still very hopeful to continue chemo on Monday. Continue to monitor CBC, will change order to with dif to monitor ANC as well. (3) Hypokalemia due to excessive gastrointestinal loss of potassium Is this a current diagnosis for this admission?: Yes Plan: resolved. - Time Time Spent with patient: 15-24 minutes
[2020-02-11] MEDS: COLESTIPOL HCL 1 GM TABLET PO SCH ×3 (11:38→19:46)
[2020-02-11] MEDS: PANTOPRAZOLE SODIUM 40 MG VIAL IV SCH (11:39)
[2020-02-11] MEDS: SUCRALFATE 1 GM TABLET PO SCH ×3 (11:39→21:34)
[2020-02-11] MEDS ORDERED: AMLODIPINE BESYLATE 5 MG TABLET PO SCH (14:00)
[2020-02-11] MEDS ORDERED: METOPROLOL SUCCINATE 50 MG TAB.SR.24H PO SCH (14:00)
[2020-02-11] MEDS: NORMAL SALINE 1000 ML 1,000 ML IV PRN (14:59)
[2020-02-11] MEDS: AMLODIPINE BESYLATE 5 MG TABLET PO SCH (17:56)
[2020-02-11] MEDS: METOPROLOL SUCCINATE 50 MG TAB.SR.24H PO SCH (17:56)
--- NOTE | 2020-02-11 18:39 | PDOC PROGRESS REPORT ---
Subjective Date:: 02/11/20 Subjective:: No adverse events overnight. No new complaints. She seems to be improving. Jonathon sullivan has been taking liquids without much trouble. She still has lot of burping and belching but is not throwing anything up. Frequency of her bowel movements has slowed down. Reason For Visit: INTRACTABLE N/V, HYPOKALEMIA Physical Exam Vital Signs: Temp Pulse Resp BP Pulse Ox 97.4 F 59 L 17 149/63 H 100 02/11/20 15:35 02/11/20 15:35 02/11/20 15:35 02/11/20 15:35 02/11/20 15:35 Intake & Output 02/10/20 02/11/20 02/12/20 06:59 06:59 06:59 Intake Total 1100 1000 Balance 1100 1000 Weight 33.8 kg 33.8 kg 33.8 kg General appearance: PRESENT: cooperative, disheveled, no apparent distress, thin Respiratory exam: PRESENT: clear to auscultation dominic, symmetrical, unlabored. ABSENT: accessory muscle use, chest wall tenderness, crackles, prolonged expiratory phase, rhonchi, tachypnea, wheezes Cardiovascular exam: PRESENT: RRR, +S1, +S2 Pulses: PRESENT: normal carotid pulses Vascular exam: PRESENT: normal capillary refill GI/Abdominal exam: PRESENT: hyperactive bowel sounds, soft, tenderness. ABSENT: distended, guarding, rebound Extremities exam: ABSENT: clubbing, pedal edema Musculoskeletal exam: PRESENT: normal inspection. ABSENT: deformity Neurological exam: PRESENT: alert, awake, oriented to person, oriented to place, oriented to situation Psychiatric exam: PRESENT: flat affect Skin exam: PRESENT: dry, warm Results Laboratory Results: 02/11/20 05:50 02/11/20 05:50 02/11/20 02/11/20 05:50 05:50 WBC 4.5 RBC 3.27 L Hgb 8.3 L Hct 25.5 L MCV 78 L MCH 25.4 L MCHC 32.5 RDW 15.9 H Plt Count 322 Sodium 137.7 Potassium 4.3 Chloride 104 Carbon Dioxide 29 Anion Gap 5 BUN 15 Creatinine 0.53 Est GFR ( Amer) > 60 Glucose 129 H Calcium 8.1 L Assessment and Plan - Diagnosis (1) Chemotherapy induced nausea and vomiting Is this a current diagnosis for this admission?: Yes (2) Hypokalemia due to excessive gastrointestinal loss of potassium Is this a current diagnosis for this admission?: Yes (3) 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 Her potassium has corrected nicely. We will continue with IV Decadron, IM olanzapine as previously noted, IV Zofran, and this combination seems to be effective. We reordered her home pain medication and she is more comfortable. We also resumed her blood pressure medications today. Once she is able to consistently tolerate p.o. without complications she can be discharged home. - Time Time Spent with patient: 15-24 minutes Anticipated Discharge Disposition: Home, Self Care Anticipated Discharge Timeframe: within 72 hours
[2020-02-11] MEDS: MORPHINE SULFATE 10 MG/5 ML ORAL SOLUTION UDCUP PO PRN (21:34)
[2020-02-11] MEDS: OLANZAPINE 5 MG TAB.RAPDIS PO SCH (21:34)
[2020-02-11] MEDS: ONDANSETRON HCL INJ/PF 4 MG/2 ML SDV IV PRN (22:00)
[2020-02-12] MEDS: ONDANSETRON HCL INJ/PF 4 MG/2 ML SDV IV PRN ×2 (05:31→17:06)
[2020-02-12] MEDS: DEXAMETHASONE SOD PHOSPHATE INJ 4 MG/1 ML VIAL IV SCH ×3 (05:56→21:31)
[2020-02-12] MEDS: MORPHINE SULFATE 10 MG/5 ML ORAL SOLUTION UDCUP PO PRN ×3 (06:11→17:07)
[2020-02-12] MEDS ORDERED: FENTANYL 50 MCG/HR PATCH.TD72 TD SCH (08:00)
[2020-02-12] MEDS: SUCRALFATE 1 GM TABLET PO SCH ×4 (08:04→21:31)
[2020-02-12] MEDS: MAG HYDROX/AL HYDROX/SIMETH SUSP 30 ML UDCUP PO PRN ×2 (08:04→14:36)
[2020-02-12] MEDS: NORMAL SALINE 1000 ML 1,000 ML IV PRN (08:11)
[2020-02-12 08:36] LABS: ABSOLUTE MONOCYTES (AUTO) 0.3 10^3/uL (0.1-1.4); ABSOLUTE NEUT (AUTO) 6.4 10^3/uL (1.7-8.2); HEMATOCRIT 31.1 % (36.0-47.0); HEMOGLOBIN 10.2 g/dL (12.0-15.5); LYMPHOCYTES % (AUTO) 12.5 % (13-45); MEAN CORPUSCULAR HEMOGLOBIN 25.4 pg (27.0-33.4); MEAN CORPUSCULAR HGB CONC 32.6 g/dL (32.0-36.0); MEAN CORPUSCULAR VOLUME 78 fl (80-97); MONOCYTES % (AUTO) 4.3 % (3-13); PLATELET COUNT 365 10^3/uL (150-450); RED CELL DISTRIBUTION WIDTH 16.3 % (11.5-14.0); SEGMENTED NEUTROPHILS % (AUTO) 83.2 % (42-78); TOTAL CELLS COUNTED % (AUTO) 100 %; WHITE BLOOD COUNT 7.7 10^3/uL (4.0-10.5)
[2020-02-12 08:57] LABS: BLOOD UREA NITROGEN 14 mg/dL (7-20); CALCIUM 8.6 mg/dL (8.4-10.2); CARBON DIOXIDE 25 mmol/L (22-30); CHLORIDE 106 mmol/L (98-107); GLUCOSE 105 mg/dL (75-110)
[2020-02-12 08:59] LABS: ANION GAP 5 (5-19)
[2020-02-12] MEDS: PANTOPRAZOLE SODIUM 40 MG VIAL IV SCH (10:37)
[2020-02-12] MEDS ORDERED: LORAZEPAM INJ 2 MG/1 ML VIAL IV PRN (11:22)
--- NOTE | 2020-02-12 11:33 | PDOC PROGRESS REPORT ---
Subjective Date:: 02/12/20 Subjective:: 59 year old female with a history of colon cancer status post bowel resection an d also a history of a lung cancer which I think may have just been recently diagnosed. She had a PET/CT done a few months ago which showed a subpleural nodule. She was reimaged a couple of months later and it appeared to have grown. She has started chemotherapy again. She had chemotherapy a week ago. The next day she developed diarrhea which she said lasted all day. Then on the day after, Monday of last week, she began to develop nausea and vomiting. She has had nausea and vomiting off and on ever since that time. She has not been able to keep anything down. She is not had any more diarrhea. She says she is not been passing any gas but her abdomen is not swollen or distended. S he has Zofran and olanzapine at home for nausea but she does not think she is ever been able to keep any of it down long enough for it to have an effect. She has been in contact with Dr. Sarah's office throughout all of this, and today Dr. Sarah recommended that she come to the hospital for evaluation. Apparently she went to the clinic, I believe she said on Monday, and got some fluids and IV antiemetics. Her potassium was noted to be low and she continues to vomit in the ER. 02/10/20-No adverse events overnight. The scheduled dose of olanzapine that was intended to help treat her chemotherapy-induced nausea and vomiting was not given last night because the nurse seems to have believed that it was ordered for psychiatric purposes, and the patient has not had any sort of psychiatric s ymptoms. I have reiterated to staff that when this medication was ordered for her as an outpatient, it was not ordered for psychiatric purposes, it was ordered for her nausea. It was also ordered inpatient to treat nausea and not any psychiatric condition. The patient has shown some response to steroids and is still nauseated but less so today. 02/11/20No adverse events overnight. No new complaints. She seems to be improving. She has been taking liquids without much trouble. She still has lot of burping and belching but is not throwing anything up. Frequency of her bowel movements has slowed down. 02/12/2020-patient is comfortably in the bed expressing desire to stay at least another day. Hypokalemia is resolved. To check for C. difficile and to start the patient on IV Ativan as needed for anxiety. Reason For Visit: INTRACTABLE N/V, HYPOKALEMIA Physical Exam Vital Signs: Temp Pulse Resp BP Pulse Ox 98.1 F 53 L 20 143/72 H 99 02/12/20 00:36 02/12/20 07:00 02/12/20 00:36 02/12/20 00:36 02/12/20 00:36 Intake & Output 02/11/20 02/12/20 02/13/20 06:59 06:59 06:59 Intake Total 1000 860 Balance 1000 860 Weight 36 kg 36.9 kg General appearance: PRESENT: no acute distress, disheveled, thin Head exam: PRESENT: atraumatic Eye exam: PRESENT: PERRLA Mouth exam: PRESENT: moist, tongue midline Teeth exam: PRESENT: poor dentation Neck exam: ABSENT: carotid bruit, JVD, lymphadenopathy, thyromegaly Respiratory exam: PRESENT: decreased breath sounds Cardiovascular exam: PRESENT: RRR. ABSENT: diastolic murmur, rubs, systolic murmur GI/Abdominal exam: PRESENT: normal bowel sounds, soft. ABSENT: distended, guarding, mass, organolmegaly, rebound, tenderness Rectal exam: PRESENT: deferred Extremities exam: PRESENT: full ROM. ABSENT: calf tenderness, clubbing, pedal edema Neurological exam: PRESENT: alert, awake, oriented to person, oriented to place, oriented to time, oriented to situation, CN II-XII grossly intact. ABSENT: motor sensory deficit Psychiatric exam: PRESENT: appropriate affect, normal mood. ABSENT: homicidal ideation, suicidal ideation Results Laboratory Results: 02/12/20 08:16 02/12/20 08:16 02/12/20 02/12/20 08:16 08:16 WBC 7.7 RBC 4.00 Hgb 10.2 L Hct 31.1 L MCV 78 L MCH 25.4 L MCHC 32.6 RDW 16.3 H Plt Count 365 Seg Neutrophils % 83.2 H Sodium 135.4 L Potassium 4.0 Chloride 106 Carbon Dioxide 25 Anion Gap 5 BUN 14 Creatinine 0.48 L Est GFR ( Amer) > 60 Glucose 105 Calcium 8.6 Assessment and Plan - Diagnosis (1) Chemotherapy induced nausea and vomiting Is this a current diagnosis for this admission?: Yes Plan: 02/12/2020-patient is still complaining of nausea and vomitings every time she ate. Patient is looks cachectic and thin. Receiving IV fluids. Plan is to start on Ativan 1 mg IV every 6 as needed for anxiety. (2) Hypokalemia due to excessive gastrointestinal loss of potassium Is this a current diagnosis for this admission?: Yes Plan: 02/12/2020-serum potassium is 4.0 hypokalemia resolved. (3) H/O colon cancer, stage IV Is this a current diagnosis for this admission?: Yes Plan: Dr. Bullard is following the patient on making further recommendations. 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 difficile today. (6) Severe protein-energy malnutrition Is this a current diagnosis for this admission?: Yes Plan: 02/12/2020-patient BMI is less than 15. On examination wasting of the quadriceps muscles, biceps muscles, temporal muscle seen. Dietary consult will be requested and nutrition supplementations will be provided. - Plan Summary Summary: Continue with IV fluids and electrolyte replacement as needed, changing IV fluids to normal saline. Her potassium has corrected nicely. We will continue with IV Decadron, IM olanzapine as previously noted, IV Zofran, and this combination seems to be effective. We reordered her home pain medication and she is more comfortable. We also resumed her blood pressure medications today. Once she is able to consistently tolerate p.o. without complications she can be discharged home. - Time Anticipated Discharge Disposition: Home, Self Care Anticipated Discharge Timeframe: within 72 hours
--- NOTE | 2020-02-12 12:07 | PDOC PROGRESS REPORT ---
Subjective Date:: 02/12/20 Subjective:: Patient states that she is still having indigestion and reflux, but she has been able to keep 80% of her food down. No further diarrhea. SHe is sleepy, but voices no other complaints. Reason For Visit: INTRACTABLE N/V, HYPOKALEMIA Physical Exam Vital Signs: Temp Pulse Resp BP Pulse Ox 98.1 F 53 L 20 143/72 H 99 02/12/20 00:36 02/12/20 07:00 02/12/20 00:36 02/12/20 00:36 02/12/20 00:36 Intake & Output 02/11/20 02/12/20 02/13/20 06:59 06:59 06:59 Intake Total 1000 860 Balance 1000 860 Weight 36 kg 36.9 kg General appearance: PRESENT: no acute distress Head exam: PRESENT: normocephalic Eye exam: PRESENT: EOMI Respiratory exam: PRESENT: unlabored Musculoskeletal exam: PRESENT: normal inspection Neurological exam: PRESENT: alert, awake Psychiatric exam: PRESENT: appropriate affect Skin exam: PRESENT: normal color Results Laboratory Results: 02/12/20 08:16 02/12/20 08:16 02/12/20 02/12/20 08:16 08:16 WBC 7.7 RBC 4.00 Hgb 10.2 L Hct 31.1 L MCV 78 L MCH 25.4 L MCHC 32.6 RDW 16.3 H Plt Count 365 Seg Neutrophils % 83.2 H Sodium 135.4 L Potassium 4.0 Chloride 106 Carbon Dioxide 25 Anion Gap 5 BUN 14 Creatinine 0.48 L Est GFR ( Amer) > 60 Glucose 105 Calcium 8.6 Assessment & Plan - Diagnosis (1) Chemotherapy induced nausea and vomiting Is this a current diagnosis for this admission?: Yes Plan: This is improving with her current regimen. I have not yet seen the recommendations from grocery clerk, or the calorie count, but if she is able to keep over 75% of her meals down, the I would Discharge with current antiemetic regimen. I agree with addition of PO ativan 0.5 mg q 4 hours PRN nausea of anxiety. (2) H/O colon cancer, stage IV Is this a current diagnosis for this admission?: Yes Plan: Chemo planned for Monday as outpatient. (3) Hypokalemia due to excessive gastrointestinal loss of potassium Is this a current diagnosis for this admission?: Yes Plan: resolved. - Time Time Spent with patient: 15-24 minutes
[2020-02-12] MEDS: COLESTIPOL HCL 1 GM TABLET PO SCH ×2 (12:24→21:14)
[2020-02-12] MEDS: AMLODIPINE BESYLATE 5 MG TABLET PO SCH (17:07)
[2020-02-12] MEDS: METOPROLOL SUCCINATE 50 MG TAB.SR.24H PO SCH (17:07)
[2020-02-12] MEDS: OLANZAPINE 5 MG TAB.RAPDIS PO SCH (21:31)
[2020-02-13] MEDS: MORPHINE SULFATE 10 MG/5 ML ORAL SOLUTION UDCUP PO PRN ×2 (04:39→16:07)
[2020-02-13] MEDS: NORMAL SALINE 1000 ML 1,000 ML IV PRN (04:42)
[2020-02-13] MEDS: DEXAMETHASONE SOD PHOSPHATE INJ 4 MG/1 ML VIAL IV SCH ×3 (05:59→21:11)
[2020-02-13 07:22] LABS: ABSOLUTE MONOCYTES (AUTO) 0.4 10^3/uL (0.1-1.4); ABSOLUTE NEUT (AUTO) 7.8 10^3/uL (1.7-8.2); HEMATOCRIT 29.6 % (36.0-47.0); HEMOGLOBIN 9.8 g/dL (12.0-15.5); LYMPHOCYTES % (AUTO) 10.3 % (13-45); MEAN CORPUSCULAR HEMOGLOBIN 25.9 pg (27.0-33.4); MEAN CORPUSCULAR HGB CONC 33.3 g/dL (32.0-36.0); MEAN CORPUSCULAR VOLUME 78 fl (80-97); MONOCYTES % (AUTO) 4.8 % (3-13); PLATELET COUNT 357 10^3/uL (150-450); RED BLOOD COUNT 3.81 10^6/uL (3.72-5.28); RED CELL DISTRIBUTION WIDTH 16.1 % (11.5-14.0); SEGMENTED NEUTROPHILS % (AUTO) 84.9 % (42-78); TOTAL CELLS COUNTED % (AUTO) 100 %; WHITE BLOOD COUNT 9.2 10^3/uL (4.0-10.5)
--- NOTE | 2020-02-13 08:22 | PDOC PROGRESS REPORT ---
Subjective Date:: 02/13/20 Subjective:: Patient seems little bit better, feels ready for discharge. She has follow-up in our office for IV fluids on Monday, and for potential treatment on Monday. Reason For Visit: INTRACTABLE N/V, HYPOKALEMIA Physical Exam Vital Signs: Temp Pulse Resp BP Pulse Ox 98.1 F 53 L 18 143/74 H 98 02/12/20 23:54 02/13/20 02:00 02/12/20 23:54 02/12/20 23:54 02/12/20 23:54 Intake & Output 02/12/20 02/13/20 02/14/20 06:59 06:59 06:59 Intake Total 1000 2440 Balance 1000 2440 Weight 36.9 kg 36 kg General appearance: PRESENT: no acute distress, well-developed, well-nourished Head exam: PRESENT: atraumatic, normocephalic Eye exam: PRESENT: conjunctiva pink, EOMI, PERRLA. ABSENT: scleral icterus Ear exam: PRESENT: normal external ear exam Mouth exam: PRESENT: moist, tongue midline Neck exam: ABSENT: carotid bruit, JVD, lymphadenopathy, thyromegaly Respiratory exam: PRESENT: clear to auscultation dominic. ABSENT: rales, rhonchi, wheezes Cardiovascular exam: PRESENT: RRR. ABSENT: diastolic murmur, rubs, systolic murmur Pulses: PRESENT: normal dorsalis pedis pul Vascular exam: PRESENT: normal capillary refill GI/Abdominal exam: PRESENT: normal bowel sounds, soft. ABSENT: distended, guarding, mass, organolmegaly, rebound, tenderness Rectal exam: PRESENT: deferred Extremities exam: PRESENT: full ROM. ABSENT: calf tenderness, clubbing, pedal edema Neurological exam: PRESENT: alert, awake, oriented to person, oriented to place, oriented to time, oriented to situation, CN II-XII grossly intact. ABSENT: motor sensory deficit Psychiatric exam: PRESENT: appropriate affect, normal mood. ABSENT: homicidal ideation, suicidal ideation Skin exam: PRESENT: dry, intact, warm. ABSENT: cyanosis, rash Results Laboratory Results: 02/12/20 08:16 02/12/20 02/12/20 08:16 08:16 WBC 7.7 RBC 4.00 Hgb 10.2 L Hct 31.1 L MCV 78 L MCH 25.4 L MCHC 32.6 RDW 16.3 H Plt Count 365 Seg Neutrophils % 83.2 H Sodium 135.4 L Potassium 4.0 Chloride 106 Carbon Dioxide 25 Anion Gap 5 BUN 14 Creatinine 0.48 L Est GFR ( Amer) > 60 Glucose 105 Calcium 8.6 Assessment & Plan - Diagnosis (1) Chemotherapy induced nausea and vomiting Is this a current diagnosis for this admission?: Yes Plan: Seems improved now, able to tolerate p.o. (2) H/O colon cancer, stage IV Is this a current diagnosis for this admission?: Yes Plan: Stage IV colon cancer, plan to treat hopefully on Monday (3) Dehydration Is this a current diagnosis for this admission?: Yes Plan: Improved, patient seems to be keeping up some fluid requirements, plan for fluids tomorrow if discharged today - Time Time Spent with patient: 35 or more minutes
[2020-02-13] MEDS: SUCRALFATE 1 GM TABLET PO SCH ×4 (08:56→21:12)
[2020-02-13] MEDS: PANTOPRAZOLE SODIUM 40 MG VIAL IV SCH (10:45)
--- NOTE | 2020-02-13 11:52 | PDOC PROGRESS REPORT ---
Subjective Date:: 02/13/20 Subjective:: 59 year old female with a history of colon cancer status post bowel resection an d also a history of a lung cancer which I think may have just been recently diagnosed. She had a PET/CT done a few months ago which showed a subpleural nodule. She was reimaged a couple of months later and it appeared to have grown. She has started chemotherapy again. She had chemotherapy a week ago. The next day she developed diarrhea which she said lasted all day. Then on the day after, Monday of last week, she began to develop nausea and vomiting. She has had nausea and vomiting off and on ever since that time. She has not been able to keep anything down. She is not had any more diarrhea. She says she is not been passing any gas but her abdomen is not swollen or distended. S he has Zofran and olanzapine at home for nausea but she does not think she is ever been able to keep any of it down long enough for it to have an effect. She has been in contact with Dr. Sarah's office throughout all of this, and today Dr. Sarah recommended that she come to the hospital for evaluation. Apparently she went to the clinic, I believe she said on Monday, and got some fluids and IV antiemetics. Her potassium was noted to be low and she continues to vomit in the ER. 02/10/20-No adverse events overnight. The scheduled dose of olanzapine that was intended to help treat her chemotherapy-induced nausea and vomiting was not given last night because the nurse seems to have believed that it was ordered for psychiatric purposes, and the patient has not had any sort of psychiatric s ymptoms. I have reiterated to staff that when this medication was ordered for her as an outpatient, it was not ordered for psychiatric purposes, it was ordered for her nausea. It was also ordered inpatient to treat nausea and not any psychiatric condition. The patient has shown some response to steroids and is still nauseated but less so today. 02/11/20No adverse events overnight. No new complaints. She seems to be improving. She has been taking liquids without much trouble. She still has lot of burping and belching but is not throwing anything up. Frequency of her bowel movements has slowed down. 02/12/2020-patient is comfortably in the bed expressing desire to stay at least another day. Hypokalemia is resolved. To check for C. difficile and to start the patient on IV Ativan as needed for anxiety. 02/13/20-patient is comfortably in the bed communicating well. Patient's son is at bedside. They are concerned about nausea, persistent vomiting's, persistent diarrhea. Patient has history of gallbladder removal, appendicectomy, hysterectomy, splenectomy, partial liver removal. This diarrhea nausea and vomiting most likely chronic. Stool for C. difficile is requested it is still pending. Reason For Visit: INTRACTABLE N/V, HYPOKALEMIA Physical Exam Vital Signs: Temp Pulse Resp BP Pulse Ox 97.5 F 55 L 18 149/68 H 100 02/13/20 07:39 02/13/20 07:39 02/12/20 23:54 02/13/20 07:39 02/13/20 07:39 Intake & Output 02/12/20 02/13/20 02/14/20 06:59 06:59 06:59 Intake Total 1000 2440 Balance 1000 2440 Weight 36.9 kg 36 kg General appearance: PRESENT: no acute distress, disheveled, thin Head exam: PRESENT: atraumatic Eye exam: PRESENT: conjunctiva pale, PERRLA Mouth exam: PRESENT: moist, tongue midline Teeth exam: PRESENT: poor dentation Neck exam: ABSENT: carotid bruit, JVD, lymphadenopathy, thyromegaly Respiratory exam: PRESENT: decreased breath sounds Cardiovascular exam: PRESENT: RRR. ABSENT: diastolic murmur, rubs, systolic m urmur Pulses: PRESENT: normal dorsalis pedis pul GI/Abdominal exam: PRESENT: normal bowel sounds, soft. ABSENT: distended, guarding, mass, organolmegaly, rebound, tenderness Rectal exam: PRESENT: deferred Extremities exam: PRESENT: full ROM. ABSENT: calf tenderness, clubbing, pedal edema Neurological exam: PRESENT: alert, awake, oriented to person, oriented to place, oriented to time, oriented to situation, CN II-XII grossly intact. ABSENT: motor sensory deficit Psychiatric exam: PRESENT: appropriate affect, normal mood. ABSENT: homicidal i deation, suicidal ideation Results Laboratory Results: 02/13/20 06:15 02/12/20 08:16 02/13/20 06:15 WBC 9.2 RBC 3.81 Hgb 9.8 L Hct 29.6 L MCV 78 L MCH 25.9 L MCHC 33.3 RDW 16.1 H Plt Count 357 Seg Neutrophils % 84.9 H Assessment and Plan - Diagnosis (1) Chemotherapy induced nausea and vomiting Is this a current diagnosis for this admission?: Yes Plan: 02/12/2020-patient is still complaining of nausea and vomitings every time she ate. Patient is looks cachectic and thin. Receiving IV fluids. Plan is to start on Ativan 1 mg IV every 6 as needed for anxiety. 02/13/20-patient is still complaining of nausea and vomitings. also Complains of loose stools. Stool for C. difficile is pending. pt is receiving IV Zofran. (2) Hypokalemia due to excessive gastrointestinal loss of potassium Is this a current diagnosis for this admission?: Yes Plan: 02/12/2020-serum potassium is 4.0 hypokalemia resolved. (3) H/O colon cancer, stage IV Is this a current diagnosis for this admission?: Yes Plan: Dr. Bullard is following the patient on making further recommendations. 02/13/2020-scheduled for next round of chemotherapy on Monday. 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 difficile today. (6) Severe protein-energy malnutrition Is this a current diagnosis for this admission?: Yes Plan: 02/12/2020-patient BMI is less than 15. On examination wasting of the quadriceps muscles, biceps muscles, temporal muscle seen. Dietary consult will be requested and nutrition supplementations will be provided. - Plan Summary Summary: Continue with IV fluids and electrolyte replacement as needed, changing IV fluids to normal saline. Her potassium has corrected nicely. We will continue with IV Decadron, IM olanzapine as previously noted, IV Zofran, and this combination seems to be effective. We reordered her home pain medication and she is more comfortable. We also resumed her blood pressure medications today. Once she is able to consistently tolerate p.o. without complications she can be discharged home. - Time Anticipated Discharge Disposition: Home with Home Health Anticipated Discharge Timeframe: within 72 hours
[2020-02-13] MEDS: COLESTIPOL HCL 1 GM TABLET PO SCH ×2 (12:24→19:02)
[2020-02-13] MEDS: AMLODIPINE BESYLATE 5 MG TABLET PO SCH (17:31)
[2020-02-13] MEDS: METOPROLOL SUCCINATE 50 MG TAB.SR.24H PO SCH (17:32)
[2020-02-13] MEDS: OLANZAPINE 5 MG TAB.RAPDIS PO SCH (21:11)
[2020-02-14] MEDS: DEXAMETHASONE SOD PHOSPHATE INJ 4 MG/1 ML VIAL IV SCH ×2 (05:28→13:17)
[2020-02-14] MEDS: NORMAL SALINE 1000 ML 1,000 ML IV PRN (05:36)
[2020-02-14 06:06] LABS: ABSOLUTE LYMPHOCYTES (AUTO) 0.9 10^3/uL (0.5-4.7); ABSOLUTE MONOCYTES (AUTO) 0.4 10^3/uL (0.1-1.4); ABSOLUTE NEUT (AUTO) 6.1 10^3/uL (1.7-8.2); HEMATOCRIT 29.3 % (36.0-47.0); HEMOGLOBIN 9.5 g/dL (12.0-15.5); MEAN CORPUSCULAR HEMOGLOBIN 25.1 pg (27.0-33.4); MEAN CORPUSCULAR HGB CONC 32.4 g/dL (32.0-36.0); MEAN CORPUSCULAR VOLUME 78 fl (80-97); MONOCYTES % (AUTO) 5.7 % (3-13); PLATELET COUNT 332 10^3/uL (150-450); RED BLOOD COUNT 3.78 10^6/uL (3.72-5.28); RED CELL DISTRIBUTION WIDTH 16.3 % (11.5-14.0); SEGMENTED NEUTROPHILS % (AUTO) 82.3 % (42-78); TOTAL CELLS COUNTED % (AUTO) 100 %; WHITE BLOOD COUNT 7.4 10^3/uL (4.0-10.5)
--- NOTE | 2020-02-14 08:51 | PDOC PROGRESS REPORT ---
Subjective Date:: 02/14/20 Subjective:: Patient was able to hold down food yesterday but still had several episodes of diarrhea. Has not tried Imodium yet though. Reason For Visit: INTRACTABLE N/V, HYPOKALEMIA Physical Exam Vital Signs: Temp Pulse Resp BP Pulse Ox 98.1 F 57 L 17 172/64 H 99 02/13/20 23:49 02/14/20 08:02 02/14/20 08:02 02/14/20 08:02 02/14/20 08:02 Intake & Output 02/13/20 02/14/20 02/15/20 06:59 06:59 06:59 Intake Total 2440 1540 Balance 2440 1540 Weight 36 kg 79.9 kg General appearance: PRESENT: no acute distress, well-developed, well-nourished Head exam: PRESENT: atraumatic, normocephalic Eye exam: PRESENT: conjunctiva pink, EOMI, PERRLA. ABSENT: scleral icterus Ear exam: PRESENT: normal external ear exam Mouth exam: PRESENT: moist, tongue midline Neck exam: ABSENT: carotid bruit, JVD, lymphadenopathy, thyromegaly Respiratory exam: PRESENT: clear to auscultation dominic. ABSENT: rales, rhonchi, wheezes Cardiovascular exam: PRESENT: RRR. ABSENT: diastolic murmur, rubs, systolic murmur Pulses: PRESENT: normal dorsalis pedis pul Vascular exam: PRESENT: normal capillary refill GI/Abdominal exam: PRESENT: normal bowel sounds, soft. ABSENT: distended, guarding, mass, organolmegaly, rebound, tenderness Rectal exam: PRESENT: deferred Extremities exam: PRESENT: full ROM. ABSENT: calf tenderness, clubbing, pedal edema Neurological exam: PRESENT: alert, awake, oriented to person, oriented to place, oriented to time, oriented to situation, CN II-XII grossly intact. ABSENT: motor sensory deficit Psychiatric exam: PRESENT: appropriate affect, normal mood. ABSENT: homicidal ideation, suicidal ideation Skin exam: PRESENT: dry, intact, warm. ABSENT: cyanosis, rash Results Laboratory Results: 02/14/20 05:30 02/12/20 08:16 02/13/20 02/14/20 06:15 05:30 WBC 9.2 7.4 RBC 3.81 3.78 Hgb 9.8 L 9.5 L Hct 29.6 L 29.3 L MCV 78 L 78 L MCH 25.9 L 25.1 L MCHC 33.3 32.4 RDW 16.1 H 16.3 H Plt Count 357 332 Seg Neutrophils % 84.9 H 82.3 H Assessment & Plan - Diagnosis (1) Chemotherapy induced nausea and vomiting Is this a current diagnosis for this admission?: Yes Plan: Improved, patient seems ready for discharge now (2) H/O colon cancer, stage IV Is this a current diagnosis for this admission?: Yes Plan: Plan to see patient on Monday for possible continued therapy if patient is stable (3) Dehydration Is this a current diagnosis for this admission?: Yes Plan: Proved - Time Time Spent with patient: 35 or more minutes
[2020-02-14] MEDS: SUCRALFATE 1 GM TABLET PO SCH ×3 (08:55→16:00)
[2020-02-14] MEDS ORDERED: LOPERAMIDE HCL 2 MG CAPSULE PO ONE (09:00)
[2020-02-14] MEDS ORDERED: LOPERAMIDE HCL 2 MG CAPSULE PO PRN (09:56)
--- NOTE | 2020-02-14 09:56 | PDOC PROGRESS REPORT ---
Subjective Date:: 02/14/20 Subjective:: 59 year old female with a history of colon cancer status post bowel resection an d also a history of a lung cancer which I think may have just been recently diagnosed. She had a PET/CT done a few months ago which showed a subpleural nodule. She was reimaged a couple of months later and it appeared to have grown. She has started chemotherapy again. She had chemotherapy a week ago. The next day she developed diarrhea which she said lasted all day. Then on the day after, Monday of last week, she began to develop nausea and vomiting. She has had nausea and vomiting off and on ever since that time. She has not been able to keep anything down. She is not had any more diarrhea. She says she is not been passing any gas but her abdomen is not swollen or distended. S he has Zofran and olanzapine at home for nausea but she does not think she is ever been able to keep any of it down long enough for it to have an effect. She has been in contact with Dr. Sarah's office throughout all of this, and today Dr. Sarah recommended that she come to the hospital for evaluation. Apparently she went to the clinic, I believe she said on Monday, and got some fluids and IV antiemetics. Her potassium was noted to be low and she continues to vomit in the ER. 02/10/20-No adverse events overnight. The scheduled dose of olanzapine that was intended to help treat her chemotherapy-induced nausea and vomiting was not given last night because the nurse seems to have believed that it was ordered for psychiatric purposes, and the patient has not had any sort of psychiatric s ymptoms. I have reiterated to staff that when this medication was ordered for her as an outpatient, it was not ordered for psychiatric purposes, it was ordered for her nausea. It was also ordered inpatient to treat nausea and not any psychiatric condition. The patient has shown some response to steroids and is still nauseated but less so today. 02/11/20No adverse events overnight. No new complaints. She seems to be improving. She has been taking liquids without much trouble. She still has lot of burping and belching but is not throwing anything up. Frequency of her bowel movements has slowed down. 02/12/2020-patient is comfortably in the bed expressing desire to stay at least another day. Hypokalemia is resolved. To check for C. difficile and to start the patient on IV Ativan as needed for anxiety. 02/13/20-patient is comfortably in the bed communicating well. Patient's son is at bedside. They are concerned about nausea, persistent vomiting's, persistent diarrhea. Patient has history of gallbladder removal, appendicectomy, hysterectomy, splenectomy, partial liver removal. This diarrhea nausea and vomiting most likely chronic. Stool for C. difficile is requested it is still pending. 02/14/2020-patient is comfortably in the bed sleeping. Agreed to stay another day. Continue to have loose stools. To try and Imodium today. Requested for C. difficile it is still pending. Reason For Visit: INTRACTABLE N/V, HYPOKALEMIA Physical Exam Vital Signs: Temp Pulse Resp BP Pulse Ox 98.1 F 57 L 17 172/64 H 99 02/13/20 23:49 02/14/20 08:02 02/14/20 08:02 02/14/20 08:02 02/14/20 08:02 Intake & Output 02/13/20 02/14/20 02/15/20 06:59 06:59 06:59 Intake Total 2440 1540 Balance 2440 1540 Weight 36 kg 79.9 kg General appearance: PRESENT: no acute distress, cooperative, disheveled, thin Head exam: PRESENT: atraumatic Eye exam: PRESENT: PERRLA Mouth exam: PRESENT: moist, tongue midline Teeth exam: PRESENT: poor dentation Neck exam: ABSENT: carotid bruit, JVD, lymphadenopathy, thyromegaly Respiratory exam: PRESENT: decreased breath sounds Cardiovascular exam: PRESENT: RRR. ABSENT: diastolic murmur, rubs, systolic murmur GI/Abdominal exam: PRESENT: normal bowel sounds, soft. ABSENT: distended, guarding, mass, organolmegaly, rebound, tenderness Rectal exam: PRESENT: deferred Extremities exam: PRESENT: full ROM. ABSENT: calf tenderness, clubbing, pedal edema Neurological exam: PRESENT: alert, awake, oriented to person, oriented to place, oriented to time, oriented to situation, CN II-XII grossly intact. ABSENT: motor sensory deficit Psychiatric exam: PRESENT: appropriate affect, normal mood. ABSENT: homicidal ideation, suicidal ideation Results Laboratory Results: 02/14/20 05:30 02/12/20 08:16 02/14/20 05:30 WBC 7.4 RBC 3.78 Hgb 9.5 L Hct 29.3 L MCV 78 L MCH 25.1 L MCHC 32.4 RDW 16.3 H Plt Count 332 Seg Neutrophils % 82.3 H Assessment and Plan - Diagnosis (1) Chemotherapy induced nausea and vomiting Is this a current diagnosis for this admission?: Yes Plan: 02/12/2020-patient is still complaining of nausea and vomitings every time she ate. Patient is looks cachectic and thin. Receiving IV fluids. Plan is to start on Ativan 1 mg IV every 6 as needed for anxiety. 02/13/20-patient is still complaining of nausea and vomitings. also Complains of loose stools. Stool for C. difficile is pending. pt is receiving IV Zofran. 02/14/2020-patient admitted with nausea and vomiting dosings are resolved patient is able to tolerate the diet but still having the loose stools. To start on Imodium today. (2) Hypokalemia due to excessive gastrointestinal loss of potassium Is this a current diagnosis for this admission?: Yes Plan: 02/12/2020-serum potassium is 4.0 hypokalemia resolved. (3) H/O colon cancer, stage IV Is this a current diagnosis for this admission?: Yes Plan: Dr. Bullard is following the patient on making further recommendations. 02/13/2020-scheduled for next round of chemotherapy on Monday. 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 difficile today. 02/14/2020-patient is still having the loose stools to start on Imodium today. (6) Severe protein-energy malnutrition Is this a current diagnosis for this admission?: Yes Plan: 02/12/2020-patient BMI is less than 15. On examination wasting of the quadriceps muscles, biceps muscles, temporal muscle seen. Dietary consult will be requested and nutrition supplementations will be provided. - Plan Summary Summary: Continue with IV fluids and electrolyte replacement as needed, changing IV fluids to normal saline. Her potassium has corrected nicely. We will continue with IV Decadron, IM olanzapine as previously noted, IV Zofran, and this combination seems to be effective. We reordered her home pain medication and she is more comfortable. We also resumed her blood pressure medications today. Once she is able to consistently tolerate p.o. without complications she can be discharged home. - Time Anticipated Discharge Disposition: Home, Self Care Anticipated Discharge Timeframe: within 48 hours
[2020-02-14] MEDS ORDERED: (PENDING PHARMACY ID) (Potassium Chloride [Klor-Con M20] 20 MEQ Tab.Er.Prt) PO SCH (10:00)
[2020-02-14] MEDS ORDERED: (PENDING PHARMACY ID) (Olanzapine [Olanzapine] 10 MG Tablet) PO SCH (10:00)
[2020-02-14] MEDS ORDERED: MORPHINE SULFATE 100 MG/5 ML PO SCH (10:00)
[2020-02-14] MEDS: PANTOPRAZOLE SODIUM 40 MG VIAL IV SCH (10:53)
[2020-02-14] MEDS ORDERED: POTASSIUM CHLORIDE 10 MEQ TABLET.ER PO SCH (11:00)
[2020-02-14] MEDS: COLESTIPOL HCL 1 GM TABLET PO SCH (11:06)
[2020-02-14] MEDS: MORPHINE SULFATE 10 MG/5 ML ORAL SOLUTION UDCUP PO PRN (11:12)
[2020-02-14] MEDS: MAG HYDROX/AL HYDROX/SIMETH SUSP 30 ML UDCUP PO PRN (13:19)
--- NOTE | 2020-02-14 15:20 | PDOC DISCHARGE SUMMARY ---
Impression - Admit/DC Date/PCP Admission Date/Primary Care Provider: 02/09/20 17:47 GARLAND STEINER MD Discharge Date: 02/14/20 - Discharge Diagnosis (1) Chemotherapy induced nausea and vomiting Is this a current diagnosis for this admission?: Yes (2) Hypokalemia due to excessive gastrointestinal loss of potassium Is this a current diagnosis for this admission?: Yes (3) H/O colon cancer, stage IV Is this a current diagnosis for this admission?: Yes (4) Metastasis to lung Is this a current diagnosis for this admission?: No (5) Diarrhea Is this a current diagnosis for this admission?: Yes (6) Severe protein-energy malnutrition Is this a current diagnosis for this admission?: Yes - Assessment Summary: Continue with IV fluids and electrolyte replacement as needed, changing IV fluids to normal saline. Her potassium has corrected nicely. We will continue with IV Decadron, IM olanzapine as previously noted, IV Zofran, and this combination seems to be effective. We reordered her home pain medication and she is more comfortable. We also resumed her blood pressure medications today. Once she is able to consistently tolerate p.o. without complications she can be discharged home. (1) Chemotherapy induced nausea and vomiting Is this a current diagnosis for this admission?: Yes Plan: 02/12/2020-patient is still complaining of nausea and vomitings every time she ate. Patient is looks cachectic and thin. Receiving IV fluids. Plan is to start on Ativan 1 mg IV every 6 as needed for anxiety. 02/13/20-patient is still complaining of nausea and vomitings. also Complains of loose stools. Stool for C. difficile is pending. pt is receiving IV Zofran. 02/14/2020-patient admitted with nausea and vomiting dosings are resolved patient is able to tolerate the diet but still having the loose stools. To start on Imodium today. 02/14/20-nausea is resolving patient able to tolerate the diet vomiting is resolved. Patient expressing desire to go home and follow-up with Dr. Hoffman as an outpatient. Patient was advised to keep the chemotherapy appointment on Monday. (2) Hypokalemia due to excessive gastrointestinal loss of potassium Is this a current diagnosis for this admission?: Yes Plan: 02/12/2020-serum potassium is 4.0 hypokalemia resolved. (3) H/O colon cancer, stage IV Is this a current diagnosis for this admission?: Yes Plan: Dr. Bullard is following the patient on making further recommendations. 02/13/2020-scheduled for next round of chemotherapy on Monday. 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 difficile today. 02/14/2020-patient is still having the loose stools to start on Imodium today. (6) Severe protein-energy malnutrition Is this a current diagnosis for this admission?: Yes Plan: 02/12/2020-patient BMI is less than 15. On examination wasting of the quadriceps muscles, biceps muscles, temporal muscle seen. Dietary consult will be requested and nutrition supplementations will be provided. - Additional Information Discharge Diet: Regular Discharge Activity: Activity As Tolerated Referrals: RC SARAH MD [ACTIVE STAFF] - Home Medications: Amlodipine Besylate [Norvasc 5 mg Tablet] 5 mg PO DAILY 07/03/19 Ondansetron [Zofran Odt 4 mg Tablet] 1 - 2 tab PO Q4H PRN #15 tab.rapdis 02/02/20 Colestipol HCl [Colestid 1 gm Tablet] 2 gm PO BID 02/10/20 Fentanyl [Duragesic 50 Mcg/Hr Transdermal Patch] 1 each TD Q3D 02/10/20 Metoprolol Succinate [Toprol Xl 50 mg Tab.sr] 50 mg PO DAILY 02/10/20 Morphine Sulfate 1 ml PO Q4 02/10/20 Olanzapine 10 mg PO DAILY 02/10/20 Potassium Chloride [Klor-Con M20] 20 meq PO DAILY 02/10/20 Amlodipine Besylate [Norvasc 5 mg Tablet] 5 mg PO QPM tablet 02/14/20 Colestipol HCl [Colestid 1 gm Tablet] 2 gm PO BID@1100,1900 tablet 02/14/20 Loperamide HCl [Imodium 2 mg Capsule] 2 mg PO Q6HP PRN capsule 02/14/20 Metoprolol Succinate [Toprol Xl 50 mg Tab.sr] 50 mg PO QPM tab.sr.24h 02/14/20 Olanzapine [Zyprexa Zydis 5 mg Odt Tablet] 20 mg PO QHS tab.rapdis 02/14/20 History of Present Illiness History of Present Illness: PEPE ELIZABETH is a 59 year old female 59 year old female with a history of colon cancer status post bowel resection and also a history of a lung cancer which I think may have just been recently diagnosed. She had a PET/CT done a few months ago which showed a subpleural nodule. She was reimaged a couple of months later and it appeared to have grown. She has started chemotherapy again. She had chemotherapy a week ago. The next day she developed diarrhea which she said lasted all day. Then on the day after, Monday of last , she began to develop nausea and vomiting. She has had nausea and vomiting off and on ever since that time. She has not been able to keep anything down. She is not had any more diarrhea. She says she is not been passing any gas but her abdomen is not swollen or distended. She has Zofran and olanzapine at home for nausea but she does not think she is ever been able to keep any of it down long enough for it to have an effect. She has been in contact with Dr. Sarah's office throughout all of this, and today Dr. Sarah recommended that she come to the hospital for evaluation. Apparently she went to the clinic, I believe she said on Monday, and got some fluids and IV antiemetics. Her potassium was noted to be low and she continues to vomit in the ER. Hospital Course Hospital Course: 59 year old female with a history of colon cancer status post bowel resection and also a history of a lung cancer which I think may have just been recently diagnosed. She had a PET/CT done a few months ago which showed a subpleural nodule. She was reimaged a couple of months later and it appeared to have grown. She has started chemotherapy again. She had chemotherapy a week ago. The next day she developed diarrhea which she said lasted all day. Then on the day after, Monday of last week, she began to develop nausea and vomiting. She has had nausea and vomiting off and on ever since that time. She has not been able to keep anything down. She is not had any more diarrhea. She says she is not been passing any gas but her abdomen is not swollen or distended. She has Zofran and olanzapine at home for nausea but she does not think she is ever been able to keep any of it down long enough for it to have an effect. She has been in contact with Dr. Sarah's office throughout all of this, and today Dr. Sarah recommended that she come to the hospital for evaluation. Apparently she went to the clinic, I believe she said on Monday, and got some fluids and IV antiemetics. Her potassium was noted to be low and she continues to vomit in the ER. 02/10/20-No adverse events overnight. The scheduled dose of olanzapine that was intended to help treat her chemotherapy-induced nausea and vomiting was not given last night because the nurse seems to have believed that it was ordered for psychiatric purposes, and the patient has not had any sort of psychiatric symptoms. I have reiterated to staff that when this medication was ordered for her as an outpatient, it was not ordered for psychiatric purposes, it was ordered for her nausea. It was also ordered inpatient to treat nausea and not any psychiatric condition. The patient has shown some response to steroids and is still nauseated but less so today. 02/11/20No adverse events overnight. No new complaints. She seems to be improving. She has been taking liquids without much trouble. She still has lot of burping and belching but is not throwing anything up. Frequency of her bowel movements has slowed down. 02/12/2020-patient is comfortably in the bed expressing desire to stay at least another day. Hypokalemia is resolved. To check for C. difficile and to start the patient on IV Ativan as needed for anxiety. 02/13/20-patient is comfortably in the bed communicating well. Patient's son is at bedside. They are concerned about nausea, persistent vomiting's, persistent diarrhea. Patient has history of gallbladder removal, appendicectomy, hysterectomy, splenectomy, partial liver removal. This diarrhea nausea and vomiting most likely chronic. Stool for C. difficile is requested it is still pending. 02/14/2020-patient is comfortably in the bed sleeping. Agreed to stay another day. Continue to have loose stools. To try and Imodium today. Requested for C. difficile it is still pending. 02/14/2020-patient is expressing desire to go home today and follow-up with Dr. Hoffman as an outpatient. Patient able to tolerate the diet. Nausea is resolvi ng. Patient expressed desire to go home and follow-up with Dr. Hoffman as an outpatient. Physical Exam Vital Signs: Temp Pulse Resp BP Pulse Ox 97.8 F 56 L 17 158/66 H 99 02/14/20 11:30 02/14/20 11:30 02/14/20 11:30 02/14/20 11:30 02/14/20 11:30 Intake & Output 02/13/20 02/14/20 02/15/20 06:59 06:59 06:59 Intake Total 2440 1540 220 Balance 2440 1540 220 Weight 36 kg 79.9 kg General appearance: PRESENT: no acute distress, cooperative, disheveled, thin Head exam: PRESENT: atraumatic Eye exam: PRESENT: PERRLA Mouth exam: PRESENT: neck supple Neck exam: ABSENT: carotid bruit, JVD, lymphadenopathy, thyromegaly Respiratory exam: PRESENT: decreased breath sounds Cardiovascular exam: PRESENT: RRR. ABSENT: diastolic murmur, rubs, systolic murmur Pulses: PRESENT: normal dorsalis pedis pul GI/Abdominal exam: PRESENT: normal bowel sounds, soft. ABSENT: distended, g uarding, mass, organolmegaly, rebound, tenderness Rectal exam: PRESENT: deferred Extremities exam: PRESENT: full ROM. ABSENT: calf tenderness, clubbing, pedal edema Neurological exam: PRESENT: alert, awake, oriented to person, oriented to place, oriented to time, oriented to situation, CN II-XII grossly intact. ABSENT: mo tor sensory deficit Psychiatric exam: PRESENT: appropriate affect, normal mood. ABSENT: homicidal ideation, suicidal ideation Results Laboratory Results: WBC 7.4 10^3/uL (4.0-10.5) 02/14/20 05:30 RBC 3.78 10^6/uL (3.72-5.28) 02/14/20 05:30 Hgb 9.5 g/dL (12.0-15.5) L 02/14/20 05:30 Hct 29.3 % (36.0-47.0) L 02/14/20 05:30 MCV 78 fl (80-97) L 02/14/20 05:30 MCH 25.1 pg (27.0-33.4) L 02/14/20 05:30 MCHC 32.4 g/dL (32.0-36.0) 02/14/20 05:30 RDW 16.3 % (11.5-14.0) H 02/14/20 05:30 Plt Count 332 10^3/uL (150-450) 02/14/20 05:30 Lymph % (Auto) 12.0 % (13-45) L 02/14/20 05:30 [place] % (Auto) 5.7 % (3-13) 02/14/20 05:30 Eos % (Auto) 0.0 % (0-6) 02/14/20 05:30 Baso % (Auto) 0.0 % (0-2) 02/14/20 05:30 Absolute Neuts (auto) 6.1 10^3/uL (1.7-8.2) 02/14/20 05:30 Absolute Lymphs (auto) 0.9 10^3/uL (0.5-4.7) 02/14/20 05:30 Absolute Monos (auto) 0.4 10^3/uL (0.1-1.4) 02/14/20 05:30 Absolute Eos (auto) 0.0 10^3/uL (0.0-0.6) 02/14/20 05:30 Absolute Basos (auto) 0.0 10^3/uL (0.0-0.2) 02/14/20 05:30 Seg Neutrophils % 82.3 % (42-78) H 02/14/20 05:30 Platelet Estimate Cancelled 02/10/20 07:30 Sodium 135.4 mmol/L (137-145) L 02/12/20 08:16 Potassium 4.0 mmol/L (3.6-5.0) 02/12/20 08:16 Chloride 106 mmol/L (98-107) 02/12/20 08:16 Carbon Dioxide 25 mmol/L (22-30) 02/12/20 08:16 Anion Gap 5 (5-19) 02/12/20 08:16 BUN 14 mg/dL (7-20) 02/12/20 08:16 Creatinine 0.48 mg/dL (0.52-1.25) L 02/12/20 08:16 Est GFR ( Amer) > 60 (>60) 02/12/20 08:16 Est GFR (MDRD) Non-Af > 60 (>60) 02/12/20 08:16 Glucose 105 mg/dL (75-110) 02/12/20 08:16 Calcium 8.6 mg/dL (8.4-10.2) 02/12/20 08:16 Magnesium 1.8 mg/dL (1.6-2.3) 02/09/20 14:50 Total Bilirubin 0.4 mg/dL (0.2-1.3) 02/09/20 14:50 Direct Bilirubin 0.2 mg/dL (0.0-0.4) 02/09/20 14:50 Neonat Total Bilirubin Not Reportable 02/09/20 14:50 Neonat Direct Bilirubin Not Reportable 02/09/20 14:50 Neonat Indirect Bili Not Reportable 02/09/20 14:50 AST 22 U/L (14-36) 02/09/20 14:50 ALT 12 U/L (<35) 02/09/20 14:50 Alkaline Phosphatase 88 U/L (38-126) 02/09/20 14:50 Total Protein 5.2 g/dL (6.3-8.2) L 02/09/20 14:50 Albumin 2.8 g/dL (3.5-5.0) L 02/09/20 14:50 Lipase 401.9 U/L (23-300) H 02/09/20 14:50 Urine Color JUAN 02/09/20 17:51 Urine Appearance TURBID 02/09/20 17:51 Urine pH 7.0 (5.0-9.0) 02/09/20 17:51 Ur Specific [place] 1.016 02/09/20 17:51 Urine Protein 30 mg/dL (NEGATIVE) H 02/09/20 17:51 Urine Glucose (UA) NEGATIVE mg/dL (NEGATIVE) 02/09/20 17:51 Urine Ketones TRACE mg/dL (NEGATIVE) H 02/09/20 17:51 Urine Blood NEGATIVE (NEGATIVE) 02/09/20 17:51 Urine Nitrite NEGATIVE (NEGATIVE) 02/09/20 17:51 Urine Bilirubin NEGATIVE (NEGATIVE) 02/09/20 17:51 Urine Urobilinogen NEGATIVE mg/dL (<2.0) 02/09/20 17:51 Ur Leukocyte Esterase NEGATIVE (NEGATIVE) 02/09/20 17:51 Urine WBC (Auto) 3 /HPF 02/09/20 17:51 Urine Bacteria (Auto) TRACE /HPF 02/09/20 17:51 Squamous Epi Cells Auto 2 /HPF 02/09/20 17:51 Amorphous Sediment Auto TRACE /HPF 02/09/20 17:51 Urine Mucus (Auto) FEW /LPF 02/09/20 17:51 Urine Ascorbic Acid NEGATIVE (NEGATIVE) 02/09/20 17:51 Slides for Path Review Cancelled 02/10/20 07:30 Plan Plan of Treatment: Patient advised to follow-up with Dr. Hoffman next week. Scheduled for chemotherapy next Monday advised her to keep the appointment. Time Spent: Greater than 30 Minutes Stroke Is this a Stroke Patient?: No Acute Heart Failure Is this a Heart Failure Patient?: No
[2020-02-14 17:05] VITALS: BP 138/78
== END 2020-02-14 17:20 | disposition home or self-care (01) | DRG 391 ==
LOC: ER 12:27 → EH 17:47 → 4S 20:52
PROVIDERS: ADMIT Family Medicine; ATTEND Internal Medicine
DX: R11.2 Nausea with vomiting, unspecified (principal); E43 Unspecified severe protein-calorie malnutrition; Z68.1 Body mass index [BMI] 19.9 or less, adult; C78.01 Secondary malignant neoplasm of right lung; T45.1X5A Adverse effect of antineoplastic and immunosuppressive drugs, initial encounter; Y92.9 Unspecified place or not applicable; E87.6 Hypokalemia; R19.7 Diarrhea, unspecified; E86.0 Dehydration; I10 Essential (primary) hypertension; F17.210 Nicotine dependence, cigarettes, uncomplicated; Z85.038 Personal history of other malignant neoplasm of large intestine; Z79.899 Other long term (current) drug therapy; Z90.49 Acquired absence of other specified parts of digestive tract; Z90.81 Acquired absence of spleen; Z80.0 Family history of malignant neoplasm of digestive organs; Z80.8 Family history of malignant neoplasm of other organs or systems
CPT/HCPCS: 36415; 80048; 80053; 81001; 83690; 83735; 85025; 85027; 96361; 96365; 96375; 99285; C9113; J1100; J1642; J2270; J2405; J3480; J3490; J7030; J7121